=== PATIENT | female | born 1955 | race Caucasian/White ===

== ENCOUNTER 2021-09-21 09:07 | Outpatient (REF) | payer OTHER, SELFPAY ==
[2021-09-21 09:19] LABS: MANUAL DIFF FLAG NO
[2021-09-21 10:10] LABS: Basophils Percent Auto 0.3 % (0-2); Eosinophils Absolute Auto 0.2 X10*3/uL (0.0-0.4); Eosinophils Percent Auto 1.8 % (0-4); Hematocrit 41.5 % (37-47); Hemoglobin 13.3 g/dl (12.0-16.0); Imm Gran Abs Auto 0.06 X10*3/uL (0.00-0.03); Imm Gran Pct Auto 0.6 % (0.0-0.4); Lymphocytes Absolute Auto 2.4 X10*3/uL (1.2-4.9); Lymphocytes Percent Auto 25.2 % (20-40); Mean Corpuscular Hemoglobin 27.3 pg (27.0-33.0); Mean Corpuscular Volume 85.2 fL (80-98); Mean Platelet Volume 10.6 fL (9.4-12.3); Monocytes Absolute Auto 1.2 X10*3/uL (0.1-1.2); Monocytes Percent Auto 12.5 % (2-11); Neutrophils Absolute Auto 5.7 X10*3/uL (2.0-8.3); Neutrophils Percent Auto 59.6 % (45-73); Platelet Count 273 X10*3/uL (160-400); Red Blood Count 4.87 X10*6/uL (4.20-5.50); Red Cell Distribution Width 13.5 % (11.0-16.0); White Blood Count 9.5 X10*3/uL (4.8-10.8)
[2021-09-21 10:37] LABS: Alanine Aminotransferase 22 U/L (0-31); Albumin Level 4.1 g/dL (3.5-5.0); Alkaline Phosphatase 122 U/L (39-117); Anion Gap 12 (12-20); Aspartate Amino Transferase 22 U/L (5-31); Bilirubin Total 0.3 mg/dL (0.0-1.0); Blood Urea Nitrogen 11 mg/dL (9-16); Calcium 10.2 mg/dL (8.4-10.2); Carbon Dioxide 25 mmol/L (22-29); Chloride 106 mmol/L (96-108); Cholesterol 203 mg/dL; Estimated Glomerular Filt Rate > 60; Glucose Random 103 mg/dL (60-115); HDL Cholesterol 65 mg/dL; LDL Cholesterol Calculated 88 mg/dl; Potassium 4.3 mmol/L (3.3-5.1); Sodium 139 mmol/L (135-145); Total Protein 7.6 g/dL (6.5-8.0); Triglycerides 252 mg/dL
[2021-09-21 11:05] LABS: Free T4 (Free Thyroxine) 3.09 ng/dL (0.71-1.85); Thyroid Stimulating Hormone 0.08 uIU/mL (0.32-4.0)
[2021-09-21 11:08] LABS: Folate 18.1 ng/mL (> or = 4.0); Vitamin B12 414 pg/mL (200-900)
[2021-09-21 11:16] LABS: Appearance Urine CLOUDY; Color Urine YELLOW; Glucose Urine UA NEG (NEG); Leukocyte Esterase Urine 2+ (NEG); Nitrite Urine POS (NEG); PH 7.5 (5.0-8.0); Specific Gravity - Urine <= 1.005 (1.005-1.025); Urine Blood 2+ (NEG); Urine Ketones NEG (NEG); Urine Protein NEG (NEG-TRACE)
[2021-09-21 11:39] LABS: Vitamin D 25-OH Total 239.4 ng/mL (>30)
[2021-09-21 12:14] LABS: Bacteria Urine 4+ /LPF; Mucus Urine 1+ /LPF; Squamous Epithelial Cell Urine 1+ /LPF
== END 2021-09-21 09:08 | disposition home or self-care (01) ==
LOC: HO.LAB 09:07
PROVIDERS: PCP Internal Medicine; Visit Provider Internal Medicine
DX: E78.00 Pure hypercholesterolemia, unspecified (principal); E03.9 Hypothyroidism, unspecified; I10 Essential (primary) hypertension
CPT/HCPCS: 36415; 80053; 80061; 81001; 82306; 82607; 82746; 84439; 84443; 85025

== ENCOUNTER 2021-10-03 10:44 | Emergency (ER) | payer OTHER, SELFPAY ==
[2021-10-03 10:50] VITALS: BP 160/96; BP 173/89; PULSE 104; PULSE 112; RESP 22; O2SAT 96; BMI 26.5
[2021-10-03] MEDS: clonazePAM 1 MG TABLET PO (10:59)
--- NOTE | 2021-10-03 11:27 | ED_ITS ---
HPI - General Adult General Chief complaint: General Medical Stated complaint: TACHYCARDIA(140'S) PER VISITING RN,ANXIOUS PER PT Time Seen by Provider: 10/03/21 10:54 Source: patient and old records reviewed Limitations: no limitations History of Present Illness HPI narrative: Patient with a history of generalized anxiety disorder typically on Klonopin presents with tachycardia. She states she ran out of her Klonopin 5 days ago. Her visiting nurse came in today and found her heart rate to be 140 and sent to the emergency department via ambulance. She has been sinus tach per EMS. She is in sinus at a approximately 100 on arrival and shortly down to 87 beats per minute. She denies chest pain or palpitations. She states she ran out of her Klonopin 5 days ago. She typically gets a 90 day supply. She filled this last prescription on August 13. She states she has been anxious and has been taking more than prescribed. Instead of 0.5 mg b.i.d. she has been taking often times twice as much. She states this is never happened to her before. Her next refill is not for another 6 weeks. She is due to see her PCP in 3 weeks. She is due to see her therapist in 2 days. She is also due to see her psychiatrist but she does not know the date. She denies any other physical complaints. No fevers or chills. No nausea vomiting diarrhea constipation or other systemic symptoms. She states this is the exact way she feels in the past when she runs out of her Klonopin. Related Data Home Medications Medication Instructions Recorded Confirmed citalopram 20 mg tablet 20 mg PO DAILY 11/29/20 02/16/21 risperidone 1 mg tablet (Risperdal) 1 mg PO BID 02/16/21 02/16/21 Previous Rx's Medication Instructions Recorded varenicline 0.5 mg (11)-1 mg (42) See Rx Instructions PO PER PKG DIR 02/16/21 tablets in a dose pack (Chantix #53 ea Starting Month Box) varenicline 1 mg tablet (Chantix) 1 mg PO BID #56 tab 03/16/21 Medium-sized pull-ups #240 ea 08/21/21 atenolol 50 mg tablet 50 mg PO DAILY #90 tab 09/18/21 clonazepam 0.5 mg tablet 0.5 mg PO DAILY PRN #30 tab 09/18/21 clonidine HCl 0.1 mg tablet 0.1 mg PO BID 90 Days #180 tab 09/18/21 levothyroxine 112 mcg tablet 112 mcg PO QAM 30 Days #30 tab 09/29/21 clonazepam 0.5 mg tablet 0.5 mg PO BEDTIME #14 tab 10/03/21 Allergies Allergy/AdvReac Type Severity Reaction Status Date / Time No Known Allergies Allergy Mild UNKNWON Verified 12/19/20 14:13 Review of Systems Constitutional: Comments: No fevers Cardiovascular: Comments: No palpitations or chest pain Respiratory: Comments: No dyspnea or cough Gastrointestinal: Comments: No nausea vomiting or diarrhea Integumentary/Breasts: Comments: No rash Neurologic: Comments: No weakness numbness or paresthesias Psychiatric: Comments: Anxiety PMFSH Past Medical History Medical History (Updated 10/03/21 @ 11:44 by Joey Alvarado MD) Anxiety and depression Cholelithiases Humerus fracture Hypercholesteremia Hypertension Hypothyroid Tobacco abuse Urge incontinence Surgical History Adnexal mass History of tonsillectomy Hx of appendectomy Family History Family History Father No problems noted. Mother Hypertension Cancer Social History Social History (Updated 12/19/20 @ 14:14 by NATALIIA Cortes) Housing: Apartment Alcohol intake: never Patient Tobacco Use Status: Current everyday Tobacco user Tobacco use type: Cigarette Cigarette Packs Per Day: 1 Use of substances other than those prescribed or required for medical reasons: No Advance Directives: No Advance Directives Information Provided: No service: No Current occupational status: disabled Physical Exam Vital Signs: Vital Signs: Last Vital Signs Pulse 104 H 10/03/21 10:50 Resp 22 H 10/03/21 10:50 BP 173/89 H 10/03/21 10:50 Pulse Ox 96 10/03/21 10:50 Body Mass Index 26.5 Const: Other: Awake and alert. Appears anxious Resp: Other: Clear and equal bilaterally without wheezes rales or rhonchi Cardio: Other: Regular rate and rhythm without murmurs rubs or gallops GI: Other: Soft nontender nondistended. Normoactive bowel sounds Skin: Other: Warm pink and dry. 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 No evidence of other systemic issues Benzodiazepine use disorder Generalized anxiety disorder Treated with Klonopin 1 mg p.o.. I discussed with patient strategies to avoid overusing her benzodiazepines. She will follow-up with a therapist. In the meantime I will prescribe short course of Klonopin and have her call her PCP for further recommendations. Discharge Plan Discharge Clinical Impression: Moderate benzodiazepine use disorder, Anxiety Patient Disposition: Home, Self-Care Instructions: Benzodiazepine Abuse (ED), Anxiety (ED) Additional Instructions: Be sure to follow-up with her therapist and psychiatrist as scheduled. Call your primary care physician office today and let them know you came to the emergency department after running out of your Klonopin early. I am giving a prescription for 7 days. You will need to follow-up with your PCP for further prescriptions. Be sure to take the medication only as prescribed and never take extra medica tion as this is potentially life-threatening Prescriptions: New clonazepam 0.5 mg tablet 0.5 mg PO BEDTIME Qty: 14 RF: 0 No Action citalopram 20 mg tablet 20 mg PO DAILY RF: 0 varenicline [Chantix] 1 mg tablet 1 mg PO BID Qty: 56 RF: 0 (DME) Medium-sized pull-ups See Rx Instructions .Route .MEDSUPPLY Qty: 240 RF: 11 clonazepam 0.5 mg tablet 0.5 mg PO DAILY PRN (Reason: anxiety) Qty: 30 RF: 0 clonidine HCl 0.1 mg tablet 0.1 mg PO BID 90 Days Qty: 180 RF: 1 atenolol 50 mg tablet 50 mg PO DAILY Qty: 90 RF: 1 levothyroxine 112 mcg tablet 112 mcg PO QAM 30 Days Qty: 30 RF: 1 risperidone [Risperdal] 1 mg tablet 1 mg PO BID RF: 0 Chantix Starting Month Box 0.5 mg (11)- 1 mg (42) tablets,dose pack See Rx Instructions PO PER PKG DIR Qty: 53 RF: 0
[2021-10-03 11:35] VITALS: BP 154/80; PULSE 87; RESP 18; TEMP 37.7; O2SAT 97
== END 2021-10-03 12:36 | disposition home or self-care (01) ==
PROVIDERS: Emergency Provider Emergency Medicine; PCP Internal Medicine
DX: R00.0 Tachycardia, unspecified (principal); F41.1 Generalized anxiety disorder; F43.0 Acute stress reaction; F17.210 Nicotine dependence, cigarettes, uncomplicated; Z79.899 Other long term (current) drug therapy; Z71.6 Tobacco abuse counseling
CPT/HCPCS: 99283; 99284

== ENCOUNTER 2022-05-16 11:17 | Outpatient (REF) | payer OTHER, SELFPAY ==
[2022-05-16 13:44] LABS: MANUAL DIFF FLAG NO
[2022-05-16 13:48] LABS: Appearance Urine HAZY; Color Urine YELLOW; Glucose Urine UA NEG (NEG); Leukocyte Esterase Urine NEG (NEG); Nitrite Urine NEG (NEG); Urine Blood 2+ (NEG); Urine Ketones NEG (NEG); Urine Protein NEG (NEG-TRACE)
[2022-05-16 13:52] LABS: Basophils Percent Auto 0.4 % (0-2); Eosinophils Absolute Auto 0.2 X10*3/uL (0.0-0.4); Hematocrit 41.3 % (37.0-47.0); Hemoglobin 13.5 g/dl (12.0-16.0); Imm Gran Abs Auto 0.08 X10*3/uL (0.00-0.03); Imm Gran Pct Auto 0.9 % (0.0-0.4); Lymphocytes Absolute Auto 2.4 X10*3/uL (1.2-4.9); Lymphocytes Percent Auto 26.1 % (20-40); Mean Corpuscular HGB Conc 32.7 g/dl (31.0-35.0); Mean Corpuscular Hemoglobin 27.9 pg (27.0-33.0); Mean Corpuscular Volume 85.3 fL (80.0-98.0); Monocytes Absolute Auto 0.9 X10*3/uL (0.1-1.2); Monocytes Percent Auto 10.1 % (2-11); Neutrophils Absolute Auto 5.6 x10*3/uL (2.0-8.3); Neutrophils Percent Auto 60.5 % (45-73); Platelet Count 246 X10*3/uL (160-400); Red Blood Count 4.84 X10*6/uL (4.20-5.50); Red Cell Distribution Width 15.8 % (11.0-16.0); White Blood Count 9.3 X10*3/uL (4.8-10.8)
[2022-05-16 14:02] LABS: Alanine Aminotransferase 21 U/L (0-31); Alkaline Phosphatase 119 U/L (39-117); Anion Gap 14 (12-20); Aspartate Amino Transferase 28 U/L (5-31); Bilirubin Total 0.3 mg/dL (0.0-1.0); Blood Urea Nitrogen 18 mg/dL (9-16); Carbon Dioxide 21 mmol/L (22-29); Chloride 105 mmol/L (96-108); Cholesterol 343 mg/dL; Estimated Glomerular Filt Rate > 60; Glucose Random 91 mg/dL (60-115); HDL Cholesterol 75 mg/dL; LDL Cholesterol Calculated 231 mg/dl; Potassium 4.3 mmol/L (3.3-5.1); Sodium 136 mmol/L (135-145); Total Protein 7.7 g/dL (6.5-8.0); Triglycerides 186 mg/dL
[2022-05-16 14:03] LABS: Squamous Epithelial Cell Urine 1+ /LPF
[2022-05-16 14:04] LABS: Bacteria Urine 1+ /LPF; RBC Urine 0-2 /HPF (0); WBC Urine 0 /HPF (0-4)
[2022-05-16 14:25] LABS: Free T4 (Free Thyroxine) 0.94 ng/dL (0.71-1.85); Thyroid Stimulating Hormone 5.14 uIU/mL (0.32-4.0)
[2022-05-16 14:38] LABS: Estimated Average Glucose 114 mg/dL; Hemoglobin A1c % 5.6 %
== END 2022-05-16 11:18 | disposition home or self-care (01) ==
LOC: HO.10HDL 11:17
PROVIDERS: Visit Provider Internal Medicine
DX: E03.9 Hypothyroidism, unspecified (principal); E78.00 Pure hypercholesterolemia, unspecified
CPT/HCPCS: 36415; 80053; 80061; 81001; 83036; 84439; 84443; 85025

== ENCOUNTER 2022-09-10 09:25 | Outpatient (REF) | payer OTHER, SELFPAY | END 2022-09-10 09:26 | disposition home or self-care (01) | LOC: HO.LAB 09:25 | PROVIDERS: PCP Internal Medicine; Visit Provider Internal Medicine | DX: E03.9 Hypothyroidism, unspecified (principal) | CPT/HCPCS: 36415; 84439; 84443 ==

== ENCOUNTER 2022-09-11 11:49 | Outpatient (REF) | payer OTHER, SELFPAY ==
[2022-09-11 12:17] LABS: Appearance Urine Clear; Color Urine Yellow; Glucose Urine UA Negative (Negative); Leukocyte Esterase Urine Trace (Negative); Nitrite Urine Negative (Negative); UMIC TRIGGER UACC YES; Urine Blood Trace (Negative); Urine Ketones Negative (Negative); Urine Protein Negative (Neg-Trace)
[2022-09-11 12:22] LABS: Bacteria Urine 1+ (None Seen); Hyaline Casts Urine 0-2 /LPF (0-2); WBC Urine 0-5 /HPF (0-5)
== END 2022-09-11 11:50 | disposition home or self-care (01) ==
LOC: HO.LNP 11:49
PROVIDERS: Visit Provider Internal Medicine
DX: R82.90 Unspecified abnormal findings in urine (principal)
CPT/HCPCS: 81001; 81003

== ENCOUNTER 2023-07-08 08:30 | Outpatient (REF) | payer OTHER, SELFPAY ==
[2023-07-08 10:44] LABS: Alanine Aminotransferase 15 U/L (0-31); Albumin Level 3.9 g/dL (3.5-5.0); Alkaline Phosphatase 110 U/L (39-117); Anion Gap 17 (12-20); Aspartate Amino Transferase 14 U/L (5-31); Bilirubin Total 0.4 mg/dL (0.0-1.0); Blood Urea Nitrogen 11 mg/dL (9-16); Calcium 9.6 mg/dL (8.4-10.2); Carbon Dioxide 20 mmol/L (22-29); Chloride 105 mmol/L (96-108); Cholesterol 203 mg/dL; Estimated Glomerular Filt Rate > 60; Glucose Random 153 mg/dL (60-115); HDL Cholesterol 47 mg/dL; LDL Cholesterol Calculated 122 mg/dl; Potassium 3.8 mmol/L (3.3-5.1); Sodium 138 mmol/L (135-145); Total Protein 8.4 g/dL (6.5-8.0); Triglycerides 171 mg/dL
[2023-07-08 11:01] LABS: Free T4 (Free Thyroxine) 1.12 ng/dL (0.71-1.85); Vitamin D 25-OH Total 40.4 ng/mL (>30)
[2023-07-08 11:11] LABS: Vitamin B12 401 pg/mL (200-900)
== END 2023-07-08 08:31 | disposition home or self-care (01) ==
LOC: HO.LAB 08:30
PROVIDERS: PCP Internal Medicine; Visit Provider Internal Medicine
DX: E03.9 Hypothyroidism, unspecified (principal); E78.00 Pure hypercholesterolemia, unspecified; M81.0 Age-related osteoporosis without current pathological fracture; E55.9 Vitamin D deficiency, unspecified
CPT/HCPCS: 36415; 80053; 80061; 82306; 82607; 82746; 84439; 84443

== ENCOUNTER 2023-07-09 14:38 | Outpatient (REF) | payer OTHER, SELFPAY ==
[2023-07-09 16:05] LABS: Appearance Urine Cloudy; Color Urine Dark Yellow; Glucose Urine UA Negative (Negative); Leukocyte Esterase Urine Moderate (2+) (Negative); Nitrite Urine Negative (Negative); PH 6.5 (5.0-9.0); UMIC TRIGGER UACC YES; Urine Blood Negative (Negative); Urine Ketones Trace mg/dL (Negative); Urine Protein 30 (1+) mg/dL (Neg-Trace)
[2023-07-09 16:27] LABS: Free T4 (Free Thyroxine) 1.18 ng/dL (0.71-1.85); Thyroid Stimulating Hormone 0.11 uIU/mL (0.32-4.0)
[2023-07-09 17:05] LABS: Bacteria Urine 4+ (None Seen); UACC Culture Trigger YES
[2023-07-11 17:39] LABS: TS Negative Control Passed; TS Panel A 1; TS Panel B 1; TS Positive Control Passed; TSpotTB Negative (Negative)
== END 2023-07-09 14:39 | disposition home or self-care (01) ==
LOC: HO.LAB 14:38
PROVIDERS: PCP Internal Medicine; Visit Provider Internal Medicine
DX: Z00.00 Encounter for general adult medical examination without abnormal findings (principal); Z11.1 Encounter for screening for respiratory tuberculosis; E03.9 Hypothyroidism, unspecified; R82.90 Unspecified abnormal findings in urine
CPT/HCPCS: 36415; 81001; 81003; 84439; 84443; 86481; 87086

== ENCOUNTER 2023-08-02 10:11 | Outpatient (AMB) | payer OTHER, SELFPAY ==
[2023-08-02 10:35] VITALS: BP 100/78; PULSE 75; O2SAT 98; BMI 33.7
--- NOTE | 2023-08-02 10:35 | AM.OFFVISMDC ---
Intake Vital Signs 08/02/23 10:35 Height 5 ft 3 in Weight 190 lb 8 oz BMI 33.7 BP 100/78 Blood Pressure Location Lt brachial Position Sitting Pulse 75 Pulse Source Pulse Oximeter Pulse Oximetry (%) 98 Oxygen Delivery Method Room Air Intake Visit Reasons: AWV Intake Note: Patient is here for an Annual Wellness Visit. Assistant Fitness Manager Required: No Accompanied by: Daughter Allergies No Known Allergies Allergy (Mild, Verified 08/02/23 10:40) UNKNWON HPI HPI Comments History of Present Illness Details 67-year-old female past medical history significant for hypertension, hypothyroid, hypercholesteremia, depression and urge incontinence. Patient Dr. Asencio presents today for annual wellness visit. Patient currently following with weekly therapist via phone and follows with Dr. Molina Meade psychiatrist. Patient requesting referral to urology for urge incontinence, referral entered. Colonoscopy: Patient reports last colonoscopy over 10 years ago. Referral entered Mammogram: Patient refuse recommended mammogram screening. DEXA: Patient agreeable to have bone density screening complete, order entered Eye exam: Last year. [place] of care was reviewed with patient patient was provided with a written screening schedule. Healthcare proxy MOLST form and reviewed with patient and daughter, patient advised to return completed forms to office to be scanned to chart. [facility] Medical History (Updated 03/04/23 @ 14:48 by Elissa Asnecio MD) Anxiety and depression Cholelithiases Humerus fracture Hypercholesteremia Hypertension Hypothyroid Tobacco abuse Urge incontinence Surgical History Adnexal mass History of tonsillectomy Hx of appendectomy Family History Father No problems noted. Mother Hypertension Cancer Social History Housing: Apartment Alcohol intake: never Patient Tobacco Use Status: Current everyday Tobacco user Tobacco use type: Cigarette Cigarette Packs Per Day: 0.5 e-Cigarette/Vaping Use: Never Used Second Hand Smoke Exposure: Yes service: No Current occupational status: disabled Cognitive needs: Yes Hearing needs: No Vision needs: Yes Questionnaire Medicare Wellness Checkup What [age] What gender do you identify with?: female During the past 4 weeks, how much have you been bothered by emotional problems such as feeling anxious, depressed, irritable, sad or downhearted, and blue?: quite a bit During the past 4 weeks, has your physical & emotional health limited your social activities with family, friends, neighbors, or groups?: moderately During the past 4 weeks, how much bodily pain have you generally had?: no pain During the past 4 weeks, was someone available to help you if you needed & wanted help?: yes, as much as I wanted During the past 4 weeks, what was the hardest physical activity you could do for at least 2 minutes?: light Can you get to places out of walking distance without help? (For eg., can you travel alone on buses, taxis or drive your car?): No Can you go shopping for groceries or clothes without someone's help?: No Can you prepare your own meals?: No Can you do your housework without help?: No Because of any health problems, do you need the help of another person with your personal care needs such as eating, bathing, dressing or getting around the house?: Yes Can you handle your own money without help?: No During the past 4 weeks, how would you rate your health in general?: fair During the past 4 weeks how have things been going for you?: good & bad parts about equal Are you having difficulties driving your car?: not applicable, I don't use a car Do you always fasten your seat belt when you are in a car?: yes, usually During past 4 weeks, have you been bothered by the following: never: Sexual problems?, seldom: Falling or dizzy when standing up and Trouble eating well? and sometimes: Teeth or denture problems?, Problems using the telephone? and Tiredness or fatigue? Have you fallen 2 or more times in the past year?: Yes Are you afraid of falling?: Yes Are you a smoker?: yes, and I might quit During the past 4 weeks, how many drinks of wine, beer, or other alcoholic beverages did you have?: no alcohol at all Do you exercise for about 20 minutes 3 or more times a week?: yes, most of the time Have you been given information to help with the following?: no: Hazards in your house that might hurt you? How often do you have trouble taking medicines the way you have been told to take them?: I seldom take medications as prescribed How confident are you that you can control & manage most of your health problems?: not very confident What is your race?: or origin or descent Mini Mental State Exam (MMSE) Orientation What is the (year) (season) (date) (day) (month)?: year, season, date, day and month Score Score: 5 Activity of Daily Living Bathing - sponge bath, tub bath or shower: receives help in bathing more than one body part (or not bathed) Dressing - getting clothes from closets & drawers, including inner/outer garments & fasteners.: receives help getting clothes or getting dressed, or stays undressed Toileting - going to the 'toilet room' for urine/bowel elimination & cleaning self/arranging clothes: receives help going to toilet room, cleaning self or arranging clothes Transfer: moves in & out of bed and chair without help (may use support object) Continence: has occasional 'accidents' Feeding: feeds self without help Total Score: 2 Information obtained from: patient Using telephone: independent Traveling: dependent Shopping: dependent Preparing meals: dependent Housework: dependent Taking medicine: dependent Managing money: dependent PHQ-9 Over the last 2 weeks, how often have you been bothered by any of the following problems? 1. Little interest or pleasure in doing things: nearly every day 2. Feeling down, depressed, or hopeless: nearly every day 3. Trouble falling or staying asleep, or sleeping too much: more than half the days 4. Feeling tired or having little energy: more than half the days 5. Poor appetite or overeating: more than half the days 6. Feeling bad about yourself - or that you are a failure or have let yourself or your family down: nearly every day 7. Trouble concentrating on things, such as reading the newspaper or watching television: nearly every day 8. Moving or speaking so slowly that other people could have noticed. Or the opposite - being so fidgety or restless that you have been moving around a lot more than usual: more than half the days 9. Thoughts that you would be better off or of hurting yourself in some way: not at all Total score: 20 Source: Developed by Drs. Geronimo Alvarez, Dalia Shields, Brandon Cleveland and colleagues, with an educational miriam from [employer]. Physical Exam Vital Signs: Last Vital Signs Pulse 75 08/02/23 10:35 BP 100/78 08/02/23 10:35 Pulse Ox 98 08/02/23 10:35 Oxygen Delivery Method Room Air 08/02/23 10:35 BMI result Body Mass Index 33.7 Const General: cooperative and no acute distress Orientation/consciousness: patient oriented x3 HEENT Ears: other (whisper test: pass) Neuro General: patient oriented x3 Gait exam (Neuro): Normal gait present Coordination: No tandem gait normal (unable to complete tandem gait. ) and Romberg test negative Assessment & Plan Assessment & Plan (1) Urge incontinence: Code(s): N39.41 - Urge incontinence Plan: Referral entered to urology (2) Medicare annual wellness visit, initial: Code(s): Z00.00 - Encounter for general adult medical examination without abnormal findings Plan: Follow up in 1 year Plan Follow up 1 year. Orders: Orders XR DEXA axial skeleton Today M81.0 - Age-related osteoporosis without current pathological fracture Referrals Gastroenterology Referral Z12.11 - Encounter for screening for malignant neoplasm of colon Urology Referral N39.41 - Urge incontinence Quality Reporting (2019) Depression/Bipolar (159/160/161/177) PHQ-9: Total score: 20 Coding Level of Care Code Medicare First (G0438) Diagnoses Urge incontinence N39.41 Medicare annual wellness visit, initial Z00.00 CPT Codes Advance Care Planning - Time spent: 1-15 minutes, not on file ([id number]) Advance Care Planning Date of discussion: 08/02/23 Forms completed: Health Care Proxy and MOLST Time spent: 1-15 minutes, not on file Actual minutes spent: 2
== END 2023-08-02 11:11 | disposition home or self-care (01) ==
PROVIDERS: PCP Internal Medicine; Visit Provider Nurse Practitioner Family
DX: Z00.00 Encounter for general adult medical examination without abnormal findings (principal); N39.41 Urge incontinence
CPT/HCPCS: 1124F; G0438

== ENCOUNTER 2023-09-17 11:15 | Outpatient (REF) | payer OTHER, SELFPAY | END 2023-09-17 11:16 | disposition home or self-care (01) | LOC: HO.LNP 11:15 | PROVIDERS: PCP Internal Medicine; Visit Provider Nurse Practitioner Family | DX: N39.46 Mixed incontinence (principal); R31.29 Other microscopic hematuria; R15.9 Full incontinence of feces; R31.0 Gross hematuria; F17.210 Nicotine dependence, cigarettes, uncomplicated; Z79.899 Other long term (current) drug therapy | CPT/HCPCS: 51798; 81003 ==

== ENCOUNTER 2023-09-17 11:15 | Outpatient (AMB) | payer OTHER, SELFPAY ==
--- NOTE | 2023-09-17 11:45 | A.OFFVIS_ITS ---
Intake Intake Visit Reasons: Urge Incontinence Intake Note: New Patient presents for initial visit for urinary and fecal incontinence Urology Medications: none Blood Thinner: none PVR: 63ml's Mysql Database Administrator Required: No Accompanied by: Daughter Allergies No Known Allergies Allergy (Mild, Verified 09/17/23 19:11) UNKNWON Medication List - Last Reconciled 09/17/23 by MIHIR Vernon [adult pull-ups As directed] atenolol 50 mg PO DAILY [BED LINER As directed] citalopram 20 mg PO DAILY clonazepam 0.5 mg PO BEDTIME clonidine HCl 0.1 mg PO BID 90 days commode (bedside commode) As directed disposable gloves As directed [GLOVES MEDIUM As directed] [incontinence PADS As directed] [incontinence wipes As directed] levothyroxine 112 mcg PO QAM 30 days miscellaneous medical supply 1 ea miscellaneous DAILY nicotine 1 patch transdermal DAILY nicotine 1 patch transdermal DAILY [Personal emergency response system As directed] [repair front wheels on rollator As directed] risperidone (Risperdal) 1 mg PO BID tolterodine ER 2 mg PO DAILY 30 days walker (Ultra-Light Rollator misc) As directed HPI HPI Comments History of Present Illness Details Azul is a very pleasant 67-year-old female patient of was accompanied by her daughters at today's visit. She has a past medical history of hypercholesteremia, hypothyroidism, anxiety, depression, and hypertension. She presents to the office today as a new patient for ongoing lower urinary tract symptoms. In discussion with the patient today she reports to be doing and feeling well. She reports noting urinary frequency and urgency with episodes of incontinence if not near a bathroom. She reports urinary symptoms to have been present for at least 2 years now. She otherwise denies hematuria, dysuria, foul smelling urine, changes to urinary stream, flank pain, fever, and or chills. In office urinalysis results reviewed with the patient today. Microscopic hematuria noted. When asked patient does report a longstanding history of nicotine dependence since the age of approximately 23 years old. She reports to be smoking 1-1 and half packs of cigarettes per day. She does report having quit for approximately 6 years in her lifetime. She otherwise denies any known workplace chemical exposure. Discussed at length potential causes for lower urinary tract symptoms as well as microscopic hematuria. Discussed surveillance monitoring of microscopic hematuria verses further workup with CT urogram, urine cytology, and in office cystoscopy. PVR 63 mLs. [facility] Medical History Humerus fracture Cholelithiases Urge incontinence Hypercholesteremia Hypothyroid Tobacco abuse Anxiety and depression Hypertension Surgical History Adnexal mass History of tonsillectomy Hx of appendectomy Family History Father No problems noted. Mother Hypertension Cancer Social History Housing: Apartment Alcohol intake: never Patient Tobacco Use Status: Current everyday Tobacco user Tobacco use type: Cigarette Cigarette Packs Per Day: 0.5 e-Cigarette/Vaping Use: Never Used Second Hand Smoke Exposure: Yes service: No Current occupational status: disabled Cognitive needs: Yes Hearing needs: No Vision needs: Yes Review of Systems Const Reports as per HPI Eyes Reports no additional complaints ENT Reports no additional complaints Card Reports as per HPI Resp Reports no additional complaints GI Reports no additional complaints Reports as per HPI Musc Details: Patient with previous right-sided humerus fracture Psych Reports as per HPI Endo Reports no additional complaints Physical Exam Const General: cooperative, comfortable, no acute distress, well developed, alert and awake Orientation/consciousness: patient oriented x3 Limitations: ambulation with cane HEENT Head: Yes normal to inspection, Yes normocephalic and Yes atraumatic Ears: hearing grossly normal bilaterally Eyes General: appearance normal, both eyes and all related structures Neck Neck: Yes normal visual inspection and Yes trachea midline Chest Chest palpation & inspection: normal inspection of the chest Resp Effort & Inspection: normal respiratory effort and able to speak in complete sentences Cardio Rate: regular rate GI Inspection: Yes normal to inspection General: Yes no CVA tenderness Back/Spine/Pelvis Back: no CVA tenderness Skin General skin exam: no rashes or lesions noted Neuro General: patient oriented x3 Extrem General: Yes normal to inspection Psych Appearance: grossly normal and well kempt Mental Status: mental status grossly normal Speech and movement: Normal speech and movement present and Clear speech present Affect: normal affect Attitude: cooperative Thought process: Normal thought process present Thought content: Normal thought content present Insight: Fair insight present (Psych) Judgement: Fair judgement present (Psych) Office Procedures Post Void Residual Post Residual Void Post Void Residual (PVR): 63 [id number] Void Residual by ultrasound Results AMB Urinalysis, Automated UA Leukoctes 0 [place]/uL Last Edit by Jeffery Woodall on 09/17/23 12:06 UA Nitrite Negative Last Edit by [employer] on 09/17/23 12:06 UA Urobilinogen 0.2 mg/dL Last Edit by [employer] on 09/17/23 12:06 UA Protein 15 mg/dL Last Edit by [employer] on 09/17/23 12:06 UA pH 7.0 Last Edit by [employer] on 09/17/23 12:06 UA Blood 10 Perry/uL Last Edit by [employer] on 09/17/23 12:06 UA Specific [place] 1.010 Last Edit by [employer] on 09/17/23 12:06 UA Ketone Negative Last Edit by [employer] on 09/17/23 12:06 UA Bilirubin 0 mg/dL Last Edit by [employer] on 09/17/23 12:06 UA Glucose 0 mg/dL Last Edit by [employer] on 09/17/23 12:06 Results Reviewed Results Reviewed: Laboratory Last Values Urine pH (Auto) 7.0 09/17/23 12:02 Specific [place] (Auto) 1.010 09/17/23 12:02 Urine Protein (Auto) 15 mg/dL 09/17/23 12:02 Glucose (UA)(Auto) 0 mg/dL 09/17/23 12:02 Urine Ketones (Auto) Negative 09/17/23 12:02 Urine Blood (Auto) 10 Perry/uL 09/17/23 12:02 Urine Nitrite (Auto) Negative 09/17/23 12:02 Urine Bilirubin (Auto) 0 mg/dL 09/17/23 12:02 Urine Urobilinogen (Auto) 0.2 mg/dL 09/17/23 12:02 Leukocyte Esterase (Auto) 0 [place]/uL 09/17/23 12:02 Assessment & Plan Assessment & Plan (1) Nicotine dependence: Code(s): F17.200 - Nicotine dependence, unspecified, uncomplicated (2) Microhematuria: Code(s): R31.29 - Other microscopic hematuria (3) Mixed stress and urge urinary incontinence: Code(s): N39.46 - Mixed incontinence Plan In office urinalysis results reviewed with the patient today; as noted above; will send for urine cytology. Discussed at length potential causes for microscopic hematuria. Will obtain CT urogram for further assessment evaluation. BUN and creatinine ordered for imaging. Discussed and stressed the importance of limiting/quitting cigarette smoking for overall health and well-being. Start tolterodine 2 mg as discussed and prescribed. Discussed bladder triggers/irritants. Discussed, stressed, and encouraged importance of drinking plenty of water daily. Follow-up in office cystoscopy with imaging and labs to be completed prior; or sooner with any issues, concerns, and or questions. Orders: Orders CT urogram Today R31.0 - Gross hematuria Creatinine Today F17.200 - Nicotine dependence, unspecified, uncomplicated, R31.29 - Other microscopic hematuria AMB Urinalysis Automated Today Z13.9 - Encounter for screening, unspecified AMB Post Void Residual by ultrasound Today N39.41 - Urge incontinence Blood Urea Nitrogen Today F17.200 - Nicotine dependence, unspecified, uncomplicated, R31.29 - Other microscopic hematuria Urine Cytology Today R31.29 - Other microscopic hematuria Medications: New tolterodine ER 2 mg PO DAILY 30 days 30 caps 1RF R39.15 - Urgency of urination Patient Instructions: The patient had an opportunity to ask questions regarding the treatment plan. All questions were answered. Physical exam, labs, and imaging were discussed and reviewed in detail. As well as risks, benefits, and discussion of treatment choices. No major barriers to understanding were identified. The patient expressed understanding and agreement with the above treatment plan. The patient was made aware they should contact our office by phone for worsening of their current condition, the appearance of new symptoms, or with any questions or concerns. Compliance is encouraged with any medications and follow up testing that is ordered. It is a privilege to be allowed the opportunity to participate in? your urological care.? Again, if you have any questions or concerns If you have any questions or concerns please do not hesitate to contact me. The office is [phone]. This note is constructed using voice recognition software. While every effort has been made to ensure accuracy hr advisor errors may have been included. Yours sincerely, VARGAS Vernon-BC Coding Level of Care Code New Pt Level 4 (01511) Diagnoses Nicotine dependence F17.200 Microhematuria R31.29 Mixed stress and urge urinary incontinence N39.46 CPT Codes Post Residual Void - PVR CPT Code: 11257-Pukp Void Residual by ultrasound ([id number])
== END 2023-09-17 12:27 | disposition home or self-care (01) ==
PROVIDERS: PCP Internal Medicine; Visit Provider Nurse Practitioner Family
DX: F17.200 Nicotine dependence, unspecified, uncomplicated (principal); R31.29 Other microscopic hematuria; N39.46 Mixed incontinence; Z13.9 Encounter for screening, unspecified
CPT/HCPCS: 99204

== ENCOUNTER 2023-09-17 12:33 | Outpatient (REF) | payer OTHER, SELFPAY ==
[2023-09-17 13:38] LABS: Urine Cytology See Pathology rpt
[2023-09-17 14:50] LABS: Blood Urea Nitrogen 11 mg/dL (9-16); Estimated Glomerular Filt Rate > 60
== END 2023-09-17 12:34 | disposition home or self-care (01) ==
LOC: HO.10HDL 12:33
PROVIDERS: Visit Provider Nurse Practitioner Family
DX: F17.200 Nicotine dependence, unspecified, uncomplicated (principal); R31.29 Other microscopic hematuria; R31.0 Gross hematuria
CPT/HCPCS: 36415; 82565; 84520; 88112

== ENCOUNTER 2023-10-08 10:02 | Outpatient (REF) | payer OTHER, SELFPAY ==
[2023-10-08 12:23] LABS: Free T4 (Free Thyroxine) 0.89 ng/dL (0.71-1.85)
== END 2023-10-08 10:03 | disposition home or self-care (01) ==
LOC: HO.LAB 10:02
PROVIDERS: PCP Internal Medicine; Visit Provider Internal Medicine
DX: E03.9 Hypothyroidism, unspecified (principal)
CPT/HCPCS: 36415; 84439; 84443

== ENCOUNTER 2023-10-10 09:46 | Outpatient (AMB) | payer OTHER, SELFPAY ==
[2023-10-10 09:56] VITALS: BP 126/70; PULSE 73; BMI 34.5
--- NOTE | 2023-10-10 09:56 | MHC.OFFVIS ---
Intake Vital Signs 10/10/23 09:56 Height 5 ft 3 in Weight 194 lb 14.218 oz BMI 34.5 BP 126/70 Blood Pressure Location Lt brachial Position Sitting Pulse 73 Intake Visit Reasons: Colonoscopy Screening Intake Note: Patient presents to in office visit today as a new patient for colonoscopy screening. CC: Patient reports occasional choking whit foods. Denies other GI symptoms today and denies having colonoscopy done in the past. Allergies No Known Allergies Allergy (Mild, Verified 10/10/23 10:01) UNKNWON HPI Colonoscopy Screening HPI Details 67-year-old female here for preprocedural meeting to discuss a screening colonoscopy. She is referred by Priscilla Eaton of [facility] primary care. PMX Hypothyroid Hypertension High cholesterol Smoker Urge urinary incontinence History of cholelithiasis Depression/anxiety Adnexal mass-right * SURGICAL HISTORY Tonsillectomy Appendectomy * ALLERGIES: NKDA * [employer] LABS: Laboratory Tests 07/08/23 09/17/23 10/08/23 08:48 12:40 10:31 Estimated GFR > 60 Total Bilirubin 0.4 AST 14 ALT 15 Alkaline Phosphata se 110 TSH 3.00 Free T4 0.89 2018 emergeny procedure note - Srinivas PREOPERATIVE DIAGNOSIS: The patient is a 63-year-old female with no previous history of this patient. I was called from the emergency room. She had appeared there with complaints of inability to swallow. She had been eating a roasted pork chop, no bone and after the 3rd bite, she was, actually, unable to even swallow her saliva. She was having a lot of irritation in the back of the throat and coughing. POSTOPERATIVE DIAGNOSIS: Food bolus removal, question of Upper Esophageal Stricture with dilation from the scope versus trauma. PROCEDURE PERFORMED: Urgent Esophagogastroduodenoscopy with food bolus removal. ESTIMATED BLOOD LOSS: Minimal. COMPLICATIONS: None. ANESTHESIA: MAC. ANESTHESIOLOGIST: Dr. Bazan ASSISTANTS: None. SPECIMENS: No specimens removed. FINDINGS: Video endoscope was introduced without difficulty. It was navigated into the posterior pharynx. Once passed through this area just below the EUS, I encountered the meat food bolus. With positioning the scope, I gently pushed on the bolus and it readily passed through the GE junction into the stomach. In the stomach, there were few other pieces of meat and some oily fluid. The stomach itself appeared normal. Duodenal bulb and duodenum appeared normal. Scope was withdrawn to the GE junction. There was slight inflammatory area in that region. Residual food flicking in the esophagus was flushed into the stomach. Liquid from the stomach was suctioned out and scope was withdrawn up through the esophagus. At the area of the food impaction, there was some mucosal disruption as if we had broken up an upper esophageal ring. The scope was removed. The patient tolerated the procedure well. PLAN: 1. Postprocedure, she was given IV Protonix 1 dose. 2. She is given a prescription for omeprazole 40 mg to take 1 at bedtime for the next 4 weeks. She has been instructed to call for a followup appointment with me due to the concern that there may have actually been a ring there, which may or may not need followup. TODAY'S VISIT This will be her first colonoscopy No bowel problems, but she is having orpharyngeal dysphagia choking mostly on meats, has a hx of food impaction with emergency EGD by Dr. Espino in 2019. Was supposed to be on omeprazole for this, will restart. She denies any cardiac or respiratory problems. There are no prior problems with anesthesia or sedation. No ID problems. No known FHX of CRC or polyps. [facility] Medical History Dysphagia, oropharyngeal Humerus fracture Cholelithiases Urge incontinence Hypercholesteremia Hypothyroid Tobacco abuse Anxiety and depression Hypertension Surgical History Adnexal mass History of tonsillectomy Hx of appendectomy Family History Father No problems noted. Mother Hypertension Cancer Social History Housing: Apartment Alcohol intake: never Patient Tobacco Use Status: Current everyday Tobacco user Tobacco use type: Cigarette Cigarette Packs Per Day: 0.5 e-Cigarette/Vaping Use: Never Used Second Hand Smoke Exposure: Yes service: No Current occupational status: disabled Cognitive needs: Yes Hearing needs: No Vision needs: Yes Review of Systems Const Denies fatigue, Denies fever(s), Denies night sweats, Denies poor appetite and Denies weight loss ENT Reports Normal hearing present, Reports dysphagia, Denies odynophagia, Denies throat swelling and Denies tongue swelling Card Reports no additional complaints Resp Reports no additional complaints GI Denies abdominal pain, Denies melena, Denies bloating, Denies hematochezia, Denies constipation, Denies GI cramping, Reports dysphagia, Denies excessive flatus, Denies early satiety, Reports heartburn, Denies diarrhea, Denies nausea, Denies odynophagia, Denies vomiting and Denies hematemesis Skin/Breast Denies pruritus, Denies lesions, Denies rash and Denies jaundice Neuro Reports Normal hearing present and Denies Abnormal speech present Endo Denies fatigue Aller/Immun Denies throat swelling and Denies tongue swelling Physical Exam Vital Signs: Last Vital Signs Pulse 73 10/10/23 09:56 BP 126/70 10/10/23 09:56 BMI result Body Mass Index 34.5 Const General: cooperative, no acute distress, well developed and well groomed Nutritional Appearance: well nourished and obese Orientation/consciousness: oriented to person, oriented to place and oriented to time Limitations: No language barrier HEENT Head: Yes normocephalic and Yes atraumatic Eyes General: appearance normal, both eyes and all related structures Pupils: Equal, round and reactive pupils present Neck Neck: Yes normal visual inspection and Yes no lymphadenopathy Thyroid: Thyroid normal Resp Effort & Inspection: normal respiratory effort and able to speak in complete sentences Auscultation: clear to auscultation bilaterally Cardio Rate: regular rate Rhythm: regular rhythm Heart sounds: Normal, physiologic split S2 sound present Peripheral pulses: radial pulses present and posterior tibial pulses present GI Inspection: No distended, Yes Abdominal panniculus present, Yes obesity and Yes visible herniation (umbilical) Palpation (GI): Soft to palpation, nontender, no guarding, not rigid and No hepatosplenomegaly present Percussion: Yes normal to percussion Auscultation: normal bowel sounds Rectal Exam - Female: deferred Abdomen image: 1. surgical scar Skin General skin exam: no rashes or lesions noted, turgor normal, skin not dry, no jaundice, No spider nevi and no striae Rashes: no rashes Nails: normal Neuro General: oriented to person, oriented to place and oriented to time Cranial nerves: Yes Equal, round and reactive pupils present and Yes Normal hearing present Speech: No Abnormal speech present Extrem General: Yes normal to inspection, No clubbing, No cyanosis and No edema Psych Appearance: grossly normal and well kempt Mental Status: other Speech and movement: Slowed speech present (Psych) Affect: normal affect Attitude: cooperative Thought process: not confabulating and Impoverished thought process present Thought content: Normal thought content present Insight: Limited insight present (Psych) Judgement: Limited judgement present (Psych) Assessment & Plan Assessment & Plan (1) Pre-op examination: Code(s): Z01.818 - Encounter for other preprocedural examination Plan: This will be her first colonoscopy No bowel problems, but she is having orpharyngeal dysphagia choking mostly on meats, has a hx of food impaction with emergency EGD by Dr. Espino in 2019. Was supposed to be on omeprazole for this, will restart. She denies any cardiac or respiratory problems. There are no prior problems with anesthesia or sedation. No ID problems. No known FHX of CRC or polyps. (2) Dysphagia, oropharyngeal: Code(s): R13.12 - Dysphagia, oropharyngeal phase (3) History of esophageal dilatation: Code(s): Z98.890 - Other specified postprocedural states (4) GERD (gastroesophageal reflux disease): Code(s): K21.9 - Gastro-esophageal reflux disease without esophagitis Orders: Orders FL barium swallow modified 10/10/23 R13.12 - Dysphagia, oropharyngeal phase EGD/[place] Combo - GI Use Only 10/10/23 R13.12 - Dysphagia, oropharyngeal phase Medications: New peg 3350-electrolytes 236-22.74-6.74 -5.86 gram (Golytely) until fecal effluent is clear; do not exceed a total volume of 2,000 mL 240 mL PO Q10M 4,000 mL 0RF 1 day Z12.11 - Encounter for screening for malignant neoplasm of colon omeprazole 40 mg PO DAILY 30 caps 6RF 30 days Z98.890 - Other specified postprocedural states, R13.12 - Dysphagia, oropharyngeal phase, K21.9 - Gastro-esophageal reflux disease without esophagitis Coding Level of Care Code New Pt Level 3 (78483) Diagnoses Pre-op examination Z01.818 Dysphagia, oropharyngeal R13.12 History of esophageal dilatation Z98.890 GERD (gastroesophageal reflux disease) K21.9
== END 2023-10-10 11:02 | disposition home or self-care (01) ==
PROVIDERS: PCP Nurse Practitioner Family; Visit Provider Nurse Practitioner
DX: R13.12 Dysphagia, oropharyngeal phase (principal); K21.9 Gastro-esophageal reflux disease without esophagitis; Z01.818 Encounter for other preprocedural examination; Z12.11 Encounter for screening for malignant neoplasm of colon
CPT/HCPCS: 99203

== ENCOUNTER → 2023-10-10 09:46 | Outpatient (BNVA) | payer OTHER, SELFPAY | PROVIDERS: PCP Nurse Practitioner Family; Visit Provider Nurse Practitioner | DX: Z01.818 Encounter for other preprocedural examination (principal); K21.9 Gastro-esophageal reflux disease without esophagitis; R13.12 Dysphagia, oropharyngeal phase; Z98.890 Other specified postprocedural states | CPT/HCPCS: 99202 ==

== ENCOUNTER 2023-10-29 09:50 | Outpatient (REF) | payer OTHER, SELFPAY ==
--- NOTE | ~2023-10-29 | CT_ITS ---
EXAMINATION: CT ABDOMEN AND PELVIS WITHOUT AND WITH CONTRAST CLINICAL INFORMATION: Gross hematuria. COMPARISON: Abdominal ultrasound dated 05/07/2007. TECHNIQUE: Noncontrast CT of the abdomen and pelvis is performed followed by split bolus contrast-enhanced images using 85 mL Omnipaque 350 contrast.? Postcontrast imaging is performed during the combined nephrogram and excretion phase. Sagittal and coronal reformatted images were obtained on the technologist's workstation for both the precontrast and postcontrast phases. This CT examination was performed using dose optimization techniques as appropriate, variously including the following: *Automated exposure control *Adjustment of mA and/or kV according to patient size (this includes techniques or standardized protocols for targeted exams where dose is matched to indication/reason for exam; i.e. extremities or head) *Use of iterative reconstruction technique DLP: 1040 mGy-cm FINDINGS: LUNG BASES: There is bibasilar dependent hypoaeration. There are mild coronary atherosclerotic calcifications. LIVER, GALLBLADDER, AND BILIARY TREE: The liver is normal in size, shape, and attenuation. A 5.5 cm benign, simple right hepatic lobe cyst is redemonstrated, for which no imaging follow-up is recommended. No focal hepatic solid lesion or biliary ductal dilatation is present. There are multiple gallstones, without wall thickening or obvious pericholecystic inflammatory change. PANCREAS: Unremarkable. SPLEEN: Unremarkable. ADRENAL GLANDS: Unremarkable. KIDNEYS AND URETERS: The kidneys are normal in size, shape, and attenuation. No hydronephrosis, hydroureter or calculi seen. No perinephric stranding. 2 right and 2 left renal low-attenuation simple appearing cysts are seen (9:229, 263, 226 and 260), for which no imaging follow-up is recommended. One at the upper pole of the left kidney measuring 4 mm is too small for full characterization with CT (9:226). 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 BLADDER: Unremarkable. GASTROINTESTINAL TRACT: The small and large bowel are unremarkable. No obstruction, free intraperitoneal air or abscess is seen. No significant diverticulosis or diverticulitis is seen. The appendix is is not identified with certainty; however, there is no finding to suggest appendicitis. ABDOMINAL WALL: There is a diastases rectus. No significant hernia is appreciated. LYMPH NODES: Normal. VASCULAR: There is mild aortoiliac atherosclerotic calcification. No abdominal aortic aneurysm or dissection is seen. PELVIC VISCERA: The uterus and adnexa are unremarkable. OSSEUS STRUCTURES: There is multi-level marked lower thoracic and mild lumbar spondylosis. No acute or aggressive osseous finding is noted. CT/CT urogram IMPRESSION: 1. There are benign, simple bilateral renal cysts, which require no imaging follow-up. One of these, at the upper pole of the left kidney, is too small for full characterization with CT. 2. 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 3. No urinary calculus or obstruction is seen. 4. There is cholelithiasis. 5. There are multi-level degenerative changes of the thoracic, and to a lesser extent lumbar spine.
[2023-10-29] MEDS: iohexoL 350 MG/ML 100 ML INFUS..BTL 85 ML IV (11:26)
[2023-10-29 13:33] LABS: Creatinine POC 0.6 mg/dL (0.5-1.4); GFR POC > 60
== END 2023-10-29 09:51 | disposition home or self-care (01) ==
LOC: HO.CT 09:50
PROVIDERS: PCP Nurse Practitioner Family; Visit Provider Nurse Practitioner Family
DX: R31.0 Gross hematuria (principal)
CPT/HCPCS: 74178; 82565; Q9967

== ENCOUNTER 2023-10-31 09:59 | Outpatient (AMB) | payer OTHER, SELFPAY ==
--- NOTE | 2023-10-31 10:09 | A.OFFVIS_ITS ---
Intake Intake Visit Reasons: cysto/CT Intake Note: Patient presents today for a CYSTOSCOPY Procedure: Meds: None Allergies to Antibiotic: No Known Allergies Blood Thinner: None Urinalysis test cleared for Cysto Disposable Uro-G Cystoscope Cannula: Lot: [id number] Exp: 04/14/2025 Allergies No Known Allergies Allergy (Mild, Verified 10/10/23 10:01) UNKNWON Medication List - Last Reconciled 10/31/23 by Madina Cruz MD [adult pull-ups As directed] atenolol 50 mg PO DAILY [BED LINER As directed] citalopram 20 mg PO DAILY clonazepam 0.5 mg PO BEDTIME clonidine HCl 0.1 mg PO BID 90 days commode (bedside commode) As directed disposable gloves As directed [GLOVES MEDIUM As directed] [incontinence PADS As directed] [incontinence wipes As directed] levothyroxine 112 mcg PO QAM 30 days miscellaneous medical supply 1 ea miscellaneous DAILY omeprazole 40 mg PO DAILY 30 days peg 3350-electrolytes 236-22.74-6.74 -5.86 gram (Golytely) 240 mL PO Q10M 1 day [Personal emergency response system As directed] prazosin 1 mg PO BEDTIME [repair front wheels on rollator As directed] risperidone 0.5 mg PO BEDTIME venlafaxine ER 150 mg PO DAILY vibegron (Gemtesa) 75 mg PO DAILY walker (Ultra-Light Rollator misc) As directed HPI HPI Comments History of Present Illness Details Azul is a 67-year-old female who presents today to the office for a follow-up. 10/31/2023? She is followed today for a cystoscopy procedure. She was seen by Kandice Troy on 09/17/2023 for microscopic hematuria and sent for CT Urogram, also script for tolteridine sent to pharm. The patient states she did not receive the medication, wears depends, leaks with associated urgency. The pt's daughter is with her today. 10/31/2023: Evaluation today?UA-- Leukoc ytes: trace; blood: 2 +. Cystoscopy procedure: consent form was obtained for the procedure. Cystoscopy findings: no suspicious bladder lesions noted, bladder wall thickening was noted. I discussed nicotine cessation and advised the patient that nicotine use is a risk factor for urinary tract cancer. I discussed CT urogram results from 10/29/2023 was not officially read by radiologist and I did review the films and want to wait for the final report which will be discussed with pt when available. 10/31/2023: Plan: Gemtesa 75 mg was orde red to replace tolterodine and SEWING SUPERVISOR will follow-up with the patient regarding CAT scan results when the account engineer is available. Follow-up with SEWING SUPERVISOR in 2 months regarding the effects of Gemtesa. [facility] Medical History Dysphagia, oropharyngeal Humerus fracture Cholelithiases Urge incontinence Hypercholesteremia Hypothyroid Tobacco abuse Anxiety and depression Hypertension Surgical History Adnexal mass History of tonsillectomy Hx of appendectomy Family History Father No problems noted. Mother Hypertension Cancer Social History Housing: Apartment Alcohol intake: never Patient Tobacco Use Status: Current everyday Tobacco user Tobacco use type: Cigarette Cigarette Packs Per Day: 0.5 e-Cigarette/Vaping Use: Never Used Second Hand Smoke Exposure: Yes service: No Current occupational status: disabled Cognitive needs: Yes Hearing needs: No Vision needs: Yes Review of Systems Const Reports as per HPI Eyes Reports no additional complaints ENT Reports no additional complaints Card Reports as per HPI Resp Reports no additional complaints GI Reports no additional complaints Reports as per HPI Musc Details: Patient with previous right-sided humerus fracture Psych Reports as per HPI Endo Reports no additional complaints Office Procedures Cystoscopy Consent Discussed risk and benefit or proposed procedure with the patient. Information consent for procedure given to the patient. Discussed technical aspects, risks, benefits and alternatives in full. Addressed all of the patient's questions and concerns regarding the procedure. The patient demonstrated knowledge and understanding. They wish to proceed with this procedure. Preparation The patient was prepped in the usual manner. A facilities painter was present and in the room. Genitalia was prepped with betadine solution in a sterile manner. Lidocaine Jelly 2% was placed into the urethra and 16Fr flexible Olympus cys toscope was inserted into the meatus after adequate lubrication. Procedure Time out per protocol performed. Bladder Inspection Bladder Inspection: The bladder was inspected in its entirety with utilization retroflexion displaying: Tumor(s): none visualized Trabeculation: moderate Mucosal Erthema: 6'oclock position from bladder neck to trigone likely related to instumentation Orifices: normal shape and position Urethra: normal Cystoscopy findings: no suspicious bladder lesions visualized [id number] DISPOSABLE SCOPE URO-G FLEXIBLE SCOPE Procedure code (CPT) selection complete Office Meds lidocaine HCl 2 % mucosal jelly in applicator Performing Provider: Madina Cruz MD Performing Location: [facility] Administered by: Joann Silva RN on 10/31/23 10:32 Dose Route Admin Location Dispensed Lot Number Expiration Date NDC Warranty Coordinator 10 mL intra-urethral 20 mL naproxen 500 mg tablet Performing Provider: Madina Cruz MD Performing Location: [facility] Administered by: Joann Silva RN on 10/31/23 10:32 Dose Route Admin Location Dispensed Lot Number Expiration Date NDC Warranty Coordinator 500 mg PO 1 tab ciprofloxacin HCl 500 mg tablet Performing Provider: Madina Cruz MD Performing Location: [facility] Administered by: Joann Silva RN on 10/31/23 10:32 Dose Route Admin Location Dispensed Lot Number Expiration Date NDC Warranty Coordinator 500 mg PO 1 tab Results AMB Urinalysis, Automated UA Leukoctes 15 Colby/uL Last Edit by NATALIIA Covington on 10/31/23 10:18 UA Nitrite Negative Last Edit by NATALIIA Covington on 10/31/23 10:18 UA Urobilinogen 0.2 mg/dL Last Edit by NATALIIA Covington on 10/31/23 10:1 8 UA Protein 15 mg/dL Last Edit by Monicacatherinenazario Caldwellirez, RMA on 10/31/23 10:18 UA pH 6.0 Last Edit by Juan Powell, A on 10/31/23 10:18 UA Blood 80 Perry/uL Last Edit by Juan Powell, RMA on 10/31/23 10:18 2+ Juan Powell 10/31/23 10:18 UA Specific [place] 1.020 Last Edit by Monicaestuardo Andre, RMA on 10/31/23 10: 18 UA Ketone Negative Last Edit by Juan Powell, RMA on 10/31/23 10:18 UA Bilirubin 0 mg/dL Last Edit by Monicaestuardo Andre, A on 10/31/23 10:18 UA Glucose 0 mg/dL Last Edit by Monicacatherinenazario Caldwellirez, A on 10/31/23 10:18 Results Reviewed Results Reviewed: Laboratory Last Values Urine pH (Auto) 6.0 10/31/23 10:15 Specific [place] (Auto) 1.020 10/31/23 10:15 Urine Protein (Auto) 15 mg/dL 10/31/23 10:15 Glucose (UA)(Auto) 0 mg/dL 10/31/23 10:15 Urine Ketones (Auto) Negative 10/31/23 10:15 Urine Blood (Auto) 80 Perry/uL 10/31/23 10:15 Urine Nitrite (Auto) Negative 10/31/23 10:15 Urine Bilirubin (Auto) 0 mg/dL 10/31/23 10:15 Urine Urobilinogen (Auto) 0.2 mg/dL 10/31/23 10:15 Leukocyte Esterase (Auto) 15 Colby/uL 10/31/23 10:15 Assessment & Plan Assessment & Plan (1) Nicotine dependence: Code(s): F17.200 - Nicotine dependence, unspecified, uncomplicated (2) Microhematuria: Code(s): R31.29 - Other microscopic hematuria (3) Mixed stress and urge urinary incontinence: Code(s): N39.46 - Mixed incontinence Plan Gemtesa 75 mg was ordered to replace tolterodine and SEWING SUPERVISOR will follow-up with the patient regarding CAT scan results when the account engineer is available. Follow-up with SEWING SUPERVISOR in 2 months regarding the effects of Gemtesa. Orders: Orders AMB Urinalysis Automated Today Z13.9 - Encounter for screening, unspecified AMB Cystoscopy Today N39.46 - Mixed incontinence Medications: New vibegron (Gemtesa) 75 mg PO DAILY 90 tabs 0RF Patient Instructions: The patient had an opportunity to ask questions regarding treatment plan. All questions were answered. Imaging, Laboratory studies and physical exam results were discussed and reviewed in detail. No major barriers to understanding were identified. The patient expressed understanding and agreement with the above tr eatment plan. The patient is aware they should contact our office by phone for worsening of their current condition or the appearance of new symptoms. Compliance is encouraged with any medications and followup testing that is ordered. It is a privilege to be allowed the opportunity to participate in the urologic care of your patient. If you have any questions or concerns regarding treatment for the above conditions please do not hesitate to contact me. The office telephone contact is [phone]. This note is constructed in part using voice recognition software. While every effort has been made to ensure accuracy account engineer errors may have been included. Yours sincerely, Madina Cruz MD Coding Level of Care Code Est Pt Level 3 (73542) Diagnoses Nicotine dependence F17.200 Microhematuria R31.29 Mixed stress and urge urinary incontinence N39.46 CPT Codes Cystoscopy - CPT: 29302-[id number] ([id number])
== END 2023-10-31 11:23 | disposition home or self-care (01) ==
PROVIDERS: PCP Internal Medicine; Visit Provider Urology
DX: R31.29 Other microscopic hematuria (principal); N39.46 Mixed incontinence; F17.200 Nicotine dependence, unspecified, uncomplicated
CPT/HCPCS: 52000; 99213

== ENCOUNTER → 2023-10-31 09:59 | Outpatient (BNVA) | payer OTHER, SELFPAY | PROVIDERS: PCP Internal Medicine; Visit Provider Urology | DX: N39.46 Mixed incontinence (principal); R31.29 Other microscopic hematuria; F17.210 Nicotine dependence, cigarettes, uncomplicated | CPT/HCPCS: 52000; 81003; 99212 ==

== ENCOUNTER 2023-12-26 10:41 | Inpatient (IN) | payer OTHER, SELFPAY ==
[2023-12-26] VITALS (7 sets, daily range): BP systolic 100–155; BP diastolic 55–96; PULSE 83–120; RESP 17–20; TEMP 36.3–37.6; O2SAT 91–100; BMI 36.2
--- NOTE | ~2023-12-26 | XR_ITS ---
EXAMINATION: XR SHOULDER, LEFT CLINICAL INFORMATION: Pain with decreased range of motion COMPARISON: None available. TECHNIQUE: AP external rotation, Grashey, scapular Y, and axillary views of the left shoulder. FINDINGS: There is loss of glenohumeral and AC joint space without periarticular spurring. There are no loose bodies, fracture or dislocation. There is a sclerotic density left humeral head likely a small bone island. The soft tissues are normal. XR/XR shoulder LT min 2V IMPRESSION: Mild degenerative changes left shoulder joint. No visible acute fracture, dislocation or subluxation seen.
--- NOTE | ~2023-12-26 | XR_ITS ---
EXAMINATION: XR CHEST CLINICAL INFORMATION: Weakness COMPARISON: Chest 09/11/2019, CTA chest 02/14/2017 TECHNIQUE: AP upright portable view of the chest was obtained. 2:29 PM FINDINGS: Lung volumes are low. There is right basilar streaky opacity consistent with atelectasis and/or pneumonia. A left pericardial fat pad is noted. No gross pleural effusions. Heart size is normal. No pneumothorax or interstitial pulmonary edema. No change in deformity of the right humeral head. XR/XR chest 1V IMPRESSION: Right basilar atelectasis and/or pneumonia.
--- NOTE | ~2023-12-26 | CT_ITS ---
EXAMINATION: CT HEAD W/O IV CONTRAST CT CERVICAL SPINE W/O IV CONTRAST CLINICAL INFORMATION: Metal status change, status post fall COMPARISON: Head CT from 09/01/2016 TECHNIQUE: Head - Contiguous axial imaging of the head was performed from the skull base to the vertex without the administration of intravenous contrast, and axial images are reconstructed at 2 mm and 5 mm slice thickness. Cervical spine - A volumetric, helical CT acquisition of the cervical spine was obtained without contrast; in addition to the standard set of axial images, multiplanar reformatted images were provided in the coronal and sagittal imaging planes. This CT examination was performed using dose optimization techniques as appropriate, variously including the following: *Automated exposure control *Adjustment of mA and/or kV according to patient size (this includes techniques or standardized protocols for targeted exams where dose is matched to indication/reason for exam; i.e. extremities or head) *Use of iterative reconstruction technique DLP: 1143 mGy-cm (total) FINDINGS: HEAD: No intracranial hemorrhage, extra-axial surface collection, focal mass effect or midline shift. The mckeon-white matter differentiation is maintained. No acute major vascular territory infarction. The ventricles have normal size and configuration; no hydrocephalus. The brainstem and cerebellum are unremarkable. The cerebellar tonsils are normal position. No calvarial fracture. No evidence of scalp hematoma. There is hyperostosis frontalis interna. Moderate mucosal thickening and frothy secretions within the left maxillary and left sphenoid sinus. Orbits and globes are unremarkable. 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 CERVICAL SPINE: The cervical spine has normal curvature. The craniocervical junction is normal. The occipital condyles, dens and atlantodental articulation are intact. Mild degenerative osseous spurring at the anterior atlantodental articulation. The cervical vertebra have normal height and alignment. Mild multilevel facet arthropathy is present. No evidence of fractures in the anterior or posterior elements. No prevertebral edema or soft tissue hematoma. A small posterior disc osteophyte complex is noted at C2-C3. No significant spinal canal stenosis. Thyroid gland is not well seen, appears to be chronically severely atrophied. Mild pleural-based scarring at lung apices. CT/CT cervical spine wo IV con IMPRESSION: * No intracranial hemorrhage or other acute intracranial pathology. * No fracture or malalignment in the cervical spine. * Mucosal thickening/secretions of left maxillary and sphenoid sinuses. Query if patient has any clinical symptoms of sinusitis.
--- NOTE | 2023-12-26 11:42 | ECG_ITS ---
Test Reason : SIEZURE Blood Pressure : / mmHG Vent. Rate : 098 BPM Atrial Rate : 098 BPM P-R Int : 154 ms QRS Dur : 070 ms QT Int : 388 ms P-R-T Axes : 036 005 068 degrees QTc Int : 495 ms Normal sinus rhythm Possible Left atrial enlargement Minimal voltage criteria for LVH, may be normal variant ( R in aVL ) Nonspecific ST abnormality Prolonged QT Abnormal ECG When compared with ECG of 22-JUL-2019 18:54, Vent. rate has increased BY [address] now depressed in Anterior leads Referred By: Generic ED Physician Electronically Signed By:Maragrito Flores
[2023-12-26 12:39] LABS: Basophils Percent Auto 0.2 % (0-2); Hematocrit 40.2 % (37.0-47.0); Hemoglobin 13.4 g/dl (12.0-16.0); Imm Gran Abs Auto 0.06 X10*3/uL (0.00-0.03); Imm Gran Pct Auto 0.5 % (0.0-0.4); Lymphocytes Absolute Auto 1.1 X10*3/uL (1.2-4.9); Lymphocytes Percent Auto 8.8 % (20-40); Mean Corpuscular HGB Conc 33.3 g/dl (31.0-35.0); Mean Corpuscular Volume 84.1 fL (80.0-98.0); Mean Platelet Volume 10.1 fL (9.4-12.3); Monocytes Absolute Auto 1.4 X10*3/uL (0.1-1.2); Monocytes Percent Auto 11.4 % (2-11); Neutrophils Absolute Auto 9.8 x10*3/uL (2.0-8.3); Neutrophils Percent Auto 79.1 % (45-73); Platelet Count 253 X10*3/uL (160-400); Red Blood Count 4.78 X10*6/uL (4.20-5.50); Red Cell Distribution Width 14.4 % (11.0-16.0); White Blood Count 12.4 X10*3/uL (4.8-10.8)
--- NOTE | 2023-12-26 13:12 | ED.GENADULT ---
HPI - General Adult General Chief complaint: General Medical Stated complaint: DIZZY,SZ,FALL OOB,HIGH BP 146/92 PER EMS Time Seen by Provider: 12/26/23 13:06 Source: patient and old records reviewed Mode of arrival: EMS Limitations: no limitations History of Present Illness HPI narrative: 68 yo female from home PMH of HLD, hypothyroidism, anxiety, depression, GERD, HTN she tells me she slept too close to the edge last night and woke up on the floor. She states she feels fine now and has no injury or pain she is alert and oriented x 3. She states she went to bed fine. EMS notes they were called by [employer] and the patient was on the floor altered and hypoxic to 91% - she does tell me she woke up with vomit or white stuff around her mouth. She denies a hx of seizures - she has no headache or tongue biting. She states she has fallen out of bed before. Patient notes she is okay now and feels fine MD complaint: woke up on floor Onset (ago): unknown Severity: moderate Relieving factors: none Exacerbating factors: none Associated symptoms: other (initially confused and dizzy on EMS arrival ) Treatments prior to arrival: other (oxygen) Related Data Home Medications Medication Instructions Recorded Confirmed citalopram 20 mg tablet 20 mg PO DAILY 11/29/20 10/31/23 prazosin 1 mg capsule 1 mg PO BEDTIME 10/10/23 10/31/23 risperidone 0.5 mg tablet 0.5 mg PO BEDTIME 10/10/23 10/31/23 venlafaxine 150 mg 150 mg PO DAILY 10/10/23 10/31/23 capsule,extended release 24 hr Previous Rx's Medication Instructions Recorded clonazepam 0.5 mg tablet 0.5 mg PO BEDTIME #14 tabs 10/03/21 clonidine HCl 0.1 mg tablet 0.1 mg PO BID 90 days #180 tabs 11/27/21 miscellaneous medical supply 1 ea miscellaneous DAILY #1 ea 06/27/22 Personal emergency response system #1 ea 03/04/23 walker (Ultra-Light Rollator misc) #1 ea 04/10/23 commode (bedside commode) #1 ea 07/05/23 repair front wheels on rollator #1 ea 07/16/23 BED LINER #100 ea 07/17/23 GLOVES MEDIUM #1 ea 07/17/23 incontinence PADS #100 ea 07/17/23 adult pull-ups #240 ea 08/06/23 atenolol 50 mg tablet 50 mg PO DAILY #90 tabs 08/19/23 disposable gloves #1,000 ea 08/30/23 incontinence wipes #4 kits 09/12/23 omeprazole 40 mg capsule,delayed 40 mg PO DAILY 30 days #30 caps 10/10/23 release peg 3350-electrolytes 236 240 ml PO Q10M 1 day #4,000 mL 10/10/23 gram-22.74 gram-6.74 gram-5.86 gram solution (Golytely) vibegron 75 mg tablet (Gemtesa) 75 mg PO DAILY #90 tabs 10/31/23 levothyroxine 112 mcg tablet 112 mcg PO QAM 30 days #30 tabs 11/18/23 Allergies Allergy/AdvReac Type Severity Reaction Status Date / Time No Known Allergies Allergy Mild UNKNWON Verified 10/10/23 10:01 Review of Systems Review of Systems: Constitutional : No Fever, No Chills, No Fatigue ENT/Mouth : No sore throat, No Rhinorrhea Eyes: No Eye Pain, No Swelling, No Redness Cardiovascular : No Chest Pain, No SOB, No Dyspnea on Exertion Respiratory : pos Cough, No Sputum Gastrointestinal : No Nausea, No Vomiting, No Diarrhea, No abdominal Pain Genitourinary : No Dysuria, No Urinary Frequency, No Hematuria, Musculoskeletal : No joint pain, No Myalgias, No Joint Swelling Skin : No Skin Lesions, No rash Neuro : No Weakness, No Numbness, No Dizziness, no Headache Psych : No Anxiety/Panic, No Depression All other systems reviewed and are negative [facility] Past Medical History Attestation statement: The following information was validated with the patient. Source: old records reviewed Medical History Dysphagia, oropharyngeal Humerus fracture Cholelithiases Urge incontinence Hypercholesteremia Hypothyroid Tobacco abuse Anxiety and depression Hypertension Surgical History Adnexal mass History of tonsillectomy Hx of appendectomy Family History Family History Father No problems noted. Mother Hypertension Cancer Social History Social History Housing: Apartment Alcohol intake: never Patient Tobacco Use Status: Current everyday Tobacco user Tobacco use type: Cigarette Cigarette Packs Per Day: 0.5 Smoked in Last 30 Days: Yes e-Cigarette/Vaping Use: Never Used Second Hand Smoke Exposure: Yes Use of substances other than those prescribed or required for medical reasons: No Advance Directives: No Advance Directives Information Provided: Yes service: No Current occupational status: disabled Cognitive needs: Yes Hearing needs: No Vision needs: Yes Physical Exam ED Vital Signs: Vital Signs - 24 hr 12/26/23 11:02 12/26/23 12:41 12/26/23 15:00 Temperature 98.2 F 98.2 F Pulse Rate 109 H 98 102 H Respiratory Rate 17 20 20 Blood Pressure 100/56 L 115/71 106/62 Pulse Oximetry 93 96 97 Oxygen Delivery Method Room Air Nasal Cannula Oxygen Flow Rate 2 12/26/23 16:19 Temperature 97.8 F Pulse Rate 91 Respiratory Rate 20 Blood Pressure 124/63 Pulse Oximetry 97 Oxygen Delivery Method Nasal Cannula Oxygen Flow Rate 2 BMI result Body Mass Index 36.2 Appearance: Alert. Oriented X3. No acute distress. Eyes: Pupils equal, round and reactive to light. ENT: Pharynx normal. atrauamtic no tongue biting Neck: Normal inspection. Neck supple. no midline ttp CVS: Normal heart rate and rhythm. Pulses normal. Respiratory: No respiratory distress. Breath sounds normal. Abdomen: Soft and nontender. Skin: Skin warm and dry. Normal skin color. Normal skin turgor. Extremities: No lower extremity edema. No calf ttp Neuro: Oriented X 3. No motor deficit. No sensory deficit. Course Course Course Narrative: at this time infection suspected 414pm - aspiration pneumonia zosyn ordered Medications Administered Generic Name Dose Route Start Last Admin Trade Name Freq PRN Reason Stop Dose Admin Sodium Chloride 1,000 mls @ 200 mls/hr 12/26/23 15:00 12/26/23 16:32 Ns IVCONT 12/26/23 19:59 200 mls/hr .Q5H CHACHO Administration Discontinued Medications Generic Name Dose Route Start Last Admin Trade Name Freq PRN Reason Stop Dose Admin Sodium Chloride 1,000 mls @ 999 mls/hr 12/26/23 15:00 12/26/23 16:32 Ns IV 12/26/23 16:00 Infused .Q1H1M CHACHO Infusion Piperacillin Sod/Tazobactam 50 mls @ 100 mls/hr 12/26/23 16:13 12/26/23 16:43 Sod 3.375 gm/ Sodium Chloride IV 12/26/23 16:42 100 mls/hr ONCE ONE Administration Medical Decision Making Medical Decision Making [facility] Narrative: 68 yo female from home PMH of HLD, hypothyroidism, anxiety, depression, GERD, HTN here after being found on the floor this AM - she states she was okay before bed but then awoke on the ground confused and altered. no prior history of seizures no tongue biting. She reports no change in medication, no ETOH and no drug use. She reports no infectious symptoms. At this non focal exam. Will obtain basic labs, CT head/cspine, metabolic and tox workup along with CXR and UA for any signs of pathology. She could have a had seizure but lactic acid is normal. Initial EKG abnormal will repeat. Differential Diagnosis Differential Diagnoses: The differential diagnosis associated with the presentation includes seizure, toxic or metabolic encephalopathy, medication overuse, lyte abnormality Admission/Observation Consideration of admission/observation: Escalation of care including admission/observation considered admit for rhabdo and IVF along with monitoring given this episode Consult Healthcare Provider Management of the patient was discussed with: Hospitalist (will admit) and Business Communications Instructor (discussed trop and EKGs with cardiology suspect rhabdo) Lab Data [facility] Lab Attestation statement: I reviewed the patient's lab results. 12/26/23 12:29 12/26/23 13:31 Labs: Lab Results 12/26/23 12/26/23 12/26/23 Range/Units 12:29 13:31 13:32 WBC 12.4 H (4.8-10.8) X10*3/uL RBC 4.78 (4.20-5.50) X10*6/uL Hgb 13.4 (12.0-16.0) g/dl Hct 40.2 (37.0-47.0) % MCV 84.1 (80.0-98.0) fL MCH 28.0 (27.0-33.0) pg MCHC 33.3 (31.0-35.0) g/dl RDW 14.4 (11.0-16.0) % Plt Count 253 (160-400) X10*3/uL MPV 10.1 (9.4-12.3) fL Immature Gran % (Auto) 0.5 H (0.0-0.4) % Neut % (Auto) 79.1 H (45-73) % Lymph % (Auto) 8.8 L (20-40) % [place] % (Auto) 11.4 H (2-11) % Eos % (Auto) 0.0 (0-4) % Baso % (Auto) 0.2 (0-2) % Lymph # (Auto) 1.1 L (1.2-4.9) X10*3/uL [place] # (Auto) 1.4 H (0.1-1.2) X10*3/uL Eos # (Auto) 0.0 (0.0-0.4) X10*3/uL Baso # (Auto) 0.0 (0.0-0.2) X10*3/uL Abs Immat Gran (auto) 0.06 H (0.00-0.03) X10*3/uL Absolute Neuts (auto) 9.8 H (2.0-8.3) x10*3/uL Absolute Nucleated RBC 0.000 (0.0-0.012) X10*3/uL Nucleated RBC % (auto) 0.0 (0.0-0.2) /100WBC Sodium 137 (135-145) mmol/L Potassium 3.4 (3.3-5.1) mmol/L Chloride 105 (96-108) mmol/L Carbon Dioxide 18 L (22-29) mmol/L Anion Gap 17 (12-20) BUN 19 H (9-16) mg/dL Creatinine 0.82 (0.5-1.4) mg/dL Estim Creat Clear Calc 64.9 Estimated GFR > 60 Random Glucose 91 (60-115) mg/dL Lactic Acid 1.7 (0.5-2.0) mmol/L Calcium 9.6 (8.4-10.2) mg/dL Magnesium 2.6 (1.6-2.6) mg/dL Total Bilirubin 0.4 (0.0-1.0) mg/dL Direct Bilirubin 0.2 (0.0-0.5) mg/dL AST 177 H (5-31) U/L ALT 42 H (0-31) U/L Alkaline Phosphatase 94 (39-117) U/L Ammonia 33 (13-55) umol/L Total Creatine Kinase 9953 H (26-140) U/L Troponin I High Sens (<3.5-17.0) ng/L Total Protein 8.6 H (6.5-8.0) g/dL Albumin 3.9 (3.5-5.0) g/dL TSH 0.16 L (0.32-4.0) uIU/mL Free T4 1.16 (0.71-1.85) ng/dL Urine Color Urine Appearance Urine pH (5.0-9.0) Ur Specific [place] (1.005-1.025) Urine Protein (Neg-Trace) mg/dL Urine Glucose (UA) (Negative) mg/dL Urine Ketones (Negative) mg/dL Urine Blood (Negative) Urine Nitrite (Negative) Ur Leukocyte Esterase (Negative) Urine RBC (0-2) /HPF Urine WBC (0-5) /HPF Ur Squamous Epith Cells (0-2) /HPF Urine Bacteria (None Seen) Hyaline Casts (0-2) /LPF Urine Opiates Screen (Not Detect) Urine Fentanyl Screen (Not Detect) Ur Barbiturates Screen (Not Detect) Ur Phencyclidine Scrn (Not Detect) Ur Amphetamines Screen (Not Detect) U Benzodiazepines Scrn (Not Detect) Urine Cocaine Screen (Not Detect) U Marijuana (THC) Screen (Not Detect) 12/26/23 12/26/23 Range/Units 15:10 16:25 WBC (4.8-10.8) X10*3/uL RBC (4.20-5.50) X10*6/uL Hgb (12.0-16.0) g/dl Hct (37.0-47.0) % MCV (80.0-98.0) fL MCH (27.0-33.0) pg MCHC (31.0-35.0) g/dl RDW (11.0-16.0) % Plt Count (160-400) X10*3/uL MPV (9.4-12.3) fL Immature Gran % (Auto) (0.0-0.4) % Neut % (Auto) (45-73) % Lymph % (Auto) (20-40) % [place] % (Auto) (2-11) % Eos % (Auto) (0-4) % Baso % (Auto) (0-2) % Lymph # (Auto) (1.2-4.9) X10*3/uL [place] # (Auto) (0.1-1.2) X10*3/uL Eos # (Auto) (0.0-0.4) X10*3/uL Baso # (Auto) (0.0-0.2) X10*3/uL Abs Immat Gran (auto) (0.00-0.03) X10*3/uL Absolute Neuts (auto) (2.0-8.3) x10*3/uL Absolute Nucleated RBC (0.0-0.012) X10*3/uL Nucleated RBC % (auto) (0.0-0.2) /100WBC Sodium (135-145) mmol/L Potassium (3.3-5.1) mmol/L Chloride (96-108) mmol/L Carbon Dioxide (22-29) mmol/L Anion Gap (12-20) BUN (9-16) mg/dL Creatinine (0.5-1.4) mg/dL Estim Creat Clear Calc Estimated GFR Random Glucose (60-115) mg/dL Lactic Acid (0.5-2.0) mmol/L Calcium (8.4-10.2) mg/dL Magnesium (1.6-2.6) mg/dL Total Bilirubin (0.0-1.0) mg/dL Direct Bilirubin (0.0-0.5) mg/dL AST (5-31) U/L ALT (0-31) U/L Alkaline Phosphatase (39-117) U/L Ammonia (13-55) umol/L Total Creatine Kinase (26-140) U/L Troponin I High Sens 228.2 H* (<3.5-17.0) ng/L Total Protein (6.5-8.0) g/dL Albumin (3.5-5.0) g/dL TSH (0.32-4.0) uIU/mL Free T4 (0.71-1.85) ng/dL Urine Color Yellow Urine Appearance Hazy Urine pH 5.5 (5.0-9.0) Ur Specific [place] >= 1.030 H (1.005-1.025) Urine Protein 100 (2+) H (Neg-Trace) mg/dL Urine Glucose (UA) Negative (Negative) mg/dL Urine Ketones 15 (Negative) mg/dL Urine Blood Large (3+) H (Negative) Urine Nitrite Negative (Negative) Ur Leukocyte Esterase Negative (Negative) Urine RBC 0-2 (0-2) /HPF Urine WBC 0-5 (0-5) /HPF Ur Squamous Epith Cells 0-2 (0-2) /HPF Urine Bacteria None Seen (None Seen) Hyaline Casts 3-5 (0-2) /LPF Urine Opiates Screen Not Detected (Not Detect) Urine Fentanyl Screen Not Detected (Not Detect) Ur Barbiturates Screen Not Detected (Not Detect) Ur Phencyclidine Scrn Not Detected (Not Detect) Ur Amphetamines Screen Not Detected (Not Detect) U Benzodiazepines Scrn Not Detected (Not Detect) Urine Cocaine Screen Not Detected (Not Detect) U Marijuana (THC) Screen Not Detected (Not Detect) Independent Interpretation I performed an independent interpretation of an: EKG, Plain X-Ray (?aspiration with new O2 requirement) and CT Scan (no trauma) Interpretation: Rate: 98 Rhythm: NSR Dane: normal , LVH Normal P waves. Normal ANNE-MARIE. Normal QRS complex. ST T wave : nonspecific changes with very slight ST depressions in V4-V6 no BRIDGET qTC: normal prior studies: changed from prior The study has been interpreted contemporaneously by me. EKG#2. Rate: 93 Rhythm: NSR Dane: normal Normal P waves. Normal ANNE-MARIE. Normal QRS complex. ST T wave : nonspecific ST T wave changes, inverted T waves V1-V2 qTC: 522 prior studies: improved from prior The study has been interpreted contemporaneously by me. . Radiology Impression Discussion of test interpretation with radiology: I have reviewed the radiologist's reading. Independent Historian Clinical information obtained from an independent historian. History obtained from or confirmed by: EMS External Record Review External record reviewed: Inpatient record Critical Care Time Critical Care Time Critical Care Time: Yes Total Critical Care Time: 35 Attestation: hypoxia treatment, IVF for rhabdo, medical consult I attest to this time spent taking care of the patient Discharge Plan Discharge Clinical Impression: Acute confusional state, Elevated liver enzymes, Elevated troponin Rhabdomyolysis Qualifiers: Rhabdomyolysis type: non-traumatic Qualified Code(s): M62.82 - Rhabdomyolysis Aspiration pneumonia Qualifiers: Aspiration pneumonia type: unspecified Laterality: right Lung location: lower lobe of lung Qualified Code(s): J69.0 - Pneumonitis due to inhalation of food and vomit Patient Disposition: Admitted As Inpatient
[2023-12-26 14:05] LABS: Ammonia 33 umol/L (13-55)
[2023-12-26 14:06] LABS: Lactic Acid 1.7 mmol/L (0.5-2.0)
[2023-12-26 14:07] LABS: Anion Gap 17 (12-20)
[2023-12-26 14:10] LABS: Blood Urea Nitrogen 19 mg/dL (9-16); Calcium 9.6 mg/dL (8.4-10.2); Carbon Dioxide 18 mmol/L (22-29); Chloride 105 mmol/L (96-108); Creatinine Clr Calc Pharmacy 64.9; Estimated Glomerular Filt Rate > 60; Glucose Random 91 mg/dL (60-115); Potassium 3.4 mmol/L (3.3-5.1); Sodium 137 mmol/L (135-145)
[2023-12-26 14:24] LABS: Alanine Aminotransferase 42 U/L (0-31); Albumin Level 3.9 g/dL (3.5-5.0); Alkaline Phosphatase 94 U/L (39-117); Aspartate Amino Transferase 177 U/L (5-31); Bilirubin Direct 0.2 mg/dL (0.0-0.5); Bilirubin Total 0.4 mg/dL (0.0-1.0); Magnesium 2.6 mg/dL (1.6-2.6); Total Protein 8.6 g/dL (6.5-8.0)
[2023-12-26 14:35] LABS: TSH reflex Free T4 0.16 uIU/mL (0.32-4.0)
[2023-12-26] MEDS: 0.9 % Sodium Chloride 1,000 ML 999 ML IV (15:11)
[2023-12-26 15:26] LABS: Free T4 (Free Thyroxine) 1.16 ng/dL (0.71-1.85)
[2023-12-26 15:36] LABS: Appearance Urine Hazy; Color Urine Yellow; Glucose Urine UA Negative (Negative); Leukocyte Esterase Urine Negative (Negative); Nitrite Urine Negative (Negative); PH 5.5 (5.0-9.0); Specific Gravity - Urine >= 1.030 (1.005-1.025); UMIC TRIGGER UACC YES; Urine Blood Large (3+) (Negative); Urine Ketones 15 mg/dL (Negative); Urine Protein 100 (2+) mg/dL (Neg-Trace)
[2023-12-26 15:47] LABS: Bacteria Urine None Seen (None Seen); RBC Urine 0-2 /HPF (0-2); Squamous Epithelial Cell Urine 0-2 /HPF (0-2); WBC Urine 0-5 /HPF (0-5)
--- NOTE | 2023-12-26 15:52 | ECG_ITS ---
Test Reason : WEAKNESS Blood Pressure : / mmHG Vent. Rate : 093 BPM Atrial Rate : 093 BPM P-R Int : 162 ms QRS Dur : 072 ms QT Int : 420 ms P-R-T Axes : 038 000 052 degrees QTc Int : 522 ms Normal sinus rhythm Minimal voltage criteria for LVH, may be normal variant ( R in aVL ) Nonspecific ST and T wave abnormality Abnormal ECG When compared with ECG of 26-DEC-2023 11:58, ST no longer depressed in Anterior leads Referred By: Yajaira Oconnor Electronically Signed By:Margarito Flores
[2023-12-26 16:01] LABS: Amphetamine Screen Urine Not Detected (Not Detect); Barbiturates, Urine Not Detected (Not Detect); Benzodiazepines Screen Urine Not Detected (Not Detect); Cannabinoid Screen Urine Not Detected (Not Detect); Cocaine Screen Urine Not Detected (Not Detect); Fentanyl, urine Not Detected (Not Detect); Opiate Screen Urine Not Detected (Not Detect); Phencyclidine Screen Urine Not Detected (Not Detect)
--- NOTE | 2023-12-26 16:30 | MHC.EDTECH ---
This pct assumed care of Pt at 1500 ,vitals taken ,repeated ekg taken and was read by Provider ,trop drawn and sent to lab.
[2023-12-26] MEDS: 0.9 % Sodium Chloride 1,000 ML 200 ML IVCONT (16:32)
[2023-12-26] MEDS: Piperacillin Sodium/Tazobactam 3.375 GM in 0.9 % Sodium Chloride 50 ML IV (16:43)
[2023-12-26 17:05] LABS: Troponin-I High Sensitivity 228.2 ng/L (<3.5-17.0)
--- NOTE | 2023-12-26 18:22 | P.HPHOSP_ITS ---
History of Present Illness Date of Service: 12/26/23 Chief Complaint: Fall 68-year-old female patient with multiple medical issues including history of hyperlipidemia, hypertension, hypothyroidism, anxiety, depression, GERD, chronic smoker who was brought in to [facility] by EMS since according to patient she went to bed fine last night, she was sleeping close to the edge of bed, she tried to get out of bed that is too high and she fell to the floor, she pressed the lifeline EMS arrived found patient on the floor, altered and angela 91%, patient denies symptoms of lightheadedness dizziness, no headache, no chest pain, but she does complain of shortness of breath, she denies nausea, no vomiting, no fevers, no chills, no new cough, denies use of alcohol, denies new medication, denied seizure-like activity, denies head injury, in the emergency room she was noted to have an elevated WBC count of 12,400, stable electrolytes, renal function and blood sugars, troponin elevated to 228, CPK 9953, elevated AST 177, ALT 42, ammonia level of 33 TSH of 0.16 with normal free T4, urinalysis showed no bacteria, chest x-ray showed right basilar atelectasis and/or pneumonia,CT head and C-spine showed no acute abnormality, EKG showed nonspecific ST changes and prolonged QT, patient is on risperidone, clonidine, atenolol at home. Review of Systems 2 Review of Systems: General no headache no dizziness no fever chills. CVS no chest pain, no palpitation. Respiratory no cough, acute shortness of breath. Gastrointestinal no nausea no vomiting, no abdominal pain chronic urine urgency Musculoskeletal left shoulder pain with restricted range of motion All other system reviewed and negative [facility] Medical History Dysphagia, oropharyngeal Humerus fracture Cholelithiases Urge incontinence Hypercholesteremia Hypothyroid Tobacco abuse Anxiety and depression Hypertension Family History Father No problems noted. Mother Hypertension Cancer Surgical History Adnexal mass History of tonsillectomy Hx of appendectomy Social History Household Members: None Housing: Apartment Do you presently have visiting nurse or other home services: Yes Alcohol intake: never Patient Tobacco Use Status: Current everyday Tobacco user Tobacco use type: Cigarette Cigarette Packs Per Day: 1 Cigarettes Per Day: 20.0 Smoked in Last 30 Days: Yes e-Cigarette/Vaping Use: Never Used Patient Interested in Nicotine Replacement: No Second Hand Smoke Exposure: Yes Use of substances other than those prescribed or required for medical reasons: No Currently Displaying Signs/Symptoms of Drug Intoxication Withdrawal: No Have you been hit, kicked, punched, or otherwise hurt by someone within the past year? If so, by whom?: No Do you feel safe in your current relationship?: Yes Is there a partner from a previous relationship who is making you feel unsafe now?: No Are you made to feel afraid or neglected: No Advance Directives: No Advance Directives Information Provided: Yes Do you have thoughts of harming others: None Do you have a plan to hurt others: No Plan Recently lost weight without trying: No Eating poorly because of decreased appetite: No Nutrition Risks: No Nutritional Risk Patient : No : No Poor oral hygiene: No service: No Current occupational status: disabled Cognitive needs: Yes Hearing needs: No Vision needs: Yes Meds Allergies Allergy/AdvReac Type Severity Reaction Status Date / Time No Known Allergies Allergy Mild [place] Verified 10/10/23 10:01 Active Medications: Current Medications Acetaminophen (Acetaminophen 325 Mg Tablet) 650 mg PO Q6H PRN PRN Reason: Pain, Mild (Pain Scale 1-3) Benzonatate (Benzonatate 100 Mg Capsule) 100 mg PO TID PRN PRN Reason: Cough Docusate Sodium (Docusate Sodium 100 Mg Capsule) 100 mg PO DAILY PRN PRN Reason: Constipation Enoxaparin Sodium (Enoxaparin Sodium 40 Mg/0.4 Ml Syringe) 40 mg SUBCUT Q24H CHACHO Sodium Chloride (Ns) 1,000 mls @ 200 mls/hr IVCONT .Q5H CHACHO Stop: 12/26/23 19:59 Last Admin: 12/26/23 16:32 Dose: 200 mls/hr Ceftriaxone Sodium 1 gm/ (Sodium Chloride) 50 mls @ 100 mls/hr IV Q24H [facility]O Azithromycin 500 mg/ Sodium (Chloride) 250 mls @ 125 mls/hr IV Q24H [facility] Ondansetron HCl (Ondansetron Hcl 4 Mg/2 Ml Vial) 4 mg IVPUSH Q8H PRN PRN Reason: Nausea and Vomiting Sodium Chloride (0.9 % Sodium Chloride Flush 3 Ml Syringe) 3 ml IVFLUSH QSHIFT [facility] Home Medications Medication Instructions Recorded Confirmed Last Taken Type prazosin 1 mg capsule 1 mg PO BEDTIME 10/10/23 12/26/23 12/25/23 History venlafaxine 150 mg 150 mg PO DAILY 10/10/23 12/26/23 12/26/23 History capsule,extended release 24 hr clonazepam 0.5 mg tablet 0.5 mg PO BID 12/26/23 12/26/23 12/26/23 History risperidone 1 mg tablet 1 mg PO DAILY 12/26/23 12/26/23 12/26/23 History Physical Exam 2 Vital Signs and Narrative: Vital Signs: Last Vital Signs Temp 97.8 F 12/26/23 16:19 Pulse 91 12/26/23 16:19 Resp 20 12/26/23 16:19 BP 124/63 12/26/23 16:19 Pulse Ox 97 12/26/23 16:19 O2 Del Method Nasal Cannula 12/26/23 16:19 O2 Flow Rate 2 12/26/23 16:19 BMI result Body Mass Index 36.2 Const: Other: General awake alert x3, resting comfortably in no acute distress. Anicteric sclera Neck supple no JVD. CVS regular rate rhythm, Respiratory lungs clear to auscultation, no respiratory distress, no wheeze, no rhonchi. Gastrointestinal abdomen soft, nontender, bowel sounds audible, no guarding , no rigidity. Extremities no edema. Neuro non focal , speech clear, unable to lift left upper extremity due to limited range of motion left shoulder, due to chronic pain. Skin no rash Psych appropriate affect Results Labs 12/27/23 06:38 12/27/23 06:38 Labs: Laboratory Results - last 24 hr 12/26/23 12/26/23 12/26/23 12:29 13:31 13:32 MCV 84.1 MCH 28.0 MCHC 33.3 RDW 14.4 Plt Count 253 MPV 10.1 Immature Gran % (Auto) 0.5 H Neut % (Auto) 79.1 H Lymph % (Auto) 8.8 L Buchanan % (Auto) 11.4 H Eos % (Auto) 0.0 Baso % (Auto) 0.2 Lymph # (Auto) 1.1 L [place] # (Auto) 1.4 H Eos # (Auto) 0.0 Baso # (Auto) 0.0 Abs Immat Gran (auto) 0.06 H Absolute Neuts (auto) 9.8 H Absolute Nucleated RBC 0.000 Nucleated RBC % (auto) 0.0 Anion Gap 17 Estim Creat Clear Calc 64.9 Estimated GFR > 60 Random Glucose 91 Lactic Acid 1.7 Calcium 9.6 Magnesium 2.6 Total Bilirubin 0.4 Direct Bilirubin 0.2 AST 177 H ALT 42 H Alkaline Phosphatase 94 Ammonia 33 Total Creatine Kinase 9953 H Total Protein 8.6 H Albumin 3.9 TSH 0.16 L Free T4 1.16 Urine Color Urine Appearance Urine pH Ur Specific [place] Urine Protein Urine Glucose (UA) Urine Ketones Urine Blood Urine Nitrite Ur Leukocyte Esterase Urine RBC Urine WBC Ur Squamous Epith Cells Urine Bacteria Hyaline Casts Urine Opiates Screen Urine Fentanyl Screen Ur Barbiturates Screen Ur Phencyclidine Scrn Ur Amphetamines Screen U Benzodiazepines Scrn Urine Cocaine Screen U Marijuana (THC) Screen 12/26/23 15:10 MCV MCH MCHC RDW Plt Count MPV Immature Gran % (Auto) Neut % (Auto) Lymph % (Auto) Buchanan % (Auto) Eos % (Auto) Baso % (Auto) Lymph # (Auto) [place] # (Auto) Eos # (Auto) Baso # (Auto) Abs Immat Gran (auto) Absolute Neuts (auto) Absolute Nucleated RBC Nucleated RBC % (auto) Anion Gap Estim Creat Clear Calc Estimated GFR Random Glucose Lactic Acid Calcium Magnesium Total Bilirubin Direct Bilirubin AST ALT Alkaline Phosphatase Ammonia Total Creatine Kinase Total Protein Albumin TSH Free T4 Urine Color Yellow Urine Appearance Hazy Urine pH 5.5 Ur Specific [place] >= 1.030 H Urine Protein 100 (2+) H Urine Glucose (UA) Negative Urine Ketones 15 Urine Blood Large (3+) H Urine Nitrite Negative Ur Leukocyte Esterase Negative Urine RBC 0-2 Urine WBC 0-5 Ur Squamous Epith Cells 0-2 Urine Bacteria None Seen Hyaline Casts 3-5 Urine Opiates Screen Not Detected Urine Fentanyl Screen Not Detected Ur Barbiturates Screen Not Detected Ur Phencyclidine Scrn Not Detected Ur Amphetamines Screen Not Detected U Benzodiazepines Scrn Not Detected Urine Cocaine Screen Not Detected U Marijuana (THC) Screen Not Detected Imaging Radiologist's Impressions: Impressions Cervical Spine CT 12/26/23 14:31 IMPRESSION: * No intracranial hemorrhage or other acute intracranial pathology. * No fracture or malalignment in the cervical spine. * Mucosal thickening/secretions of left maxillary and sphenoid sinuses. Query if patient has any clinical symptoms of sinusitis. Head CT 12/26/23 14:31 IMPRESSION: * No intracranial hemorrhage or other acute intracranial pathology. * No fracture or malalignment in the cervical spine. * Mucosal thickening/secretions of left maxillary and sphenoid sinuses. Query if patient has any clinical symptoms of sinusitis. Chest X-Ray 12/26/23 14:36 IMPRESSION: Right basilar atelectasis and/or pneumonia. Assessment and Plan (1) Elevated troponin: Status: Acute (2) Elevated liver enzymes: Status: Acute (3) Aspiration pneumonia: Qualifiers: Aspiration pneumonia type: unspecified Laterality: right Lung location: lower lobe of lung Qualified Code(s): J69.0 - Pneumonitis due to inhalation of food and vomit Status: Acute (4) Rhabdomyolysis: Qualifiers: Rhabdomyolysis type: non-traumatic Qualified Code(s): M62.82 - Rhabdomyolysis Status: Acute Plan 68-year-old female with multiple medical issues presented due to a fall with no preceding symptoms of lightheadedness or dizziness noted to have elevated WBC tachycardia question pneumonia and elevated troponin, CPK will admit to telemetry unit with diagnosis of sepsis due to pneumonia and further workup for elevated troponin and abnormal EKG. Sepsis due to pneumonia question aspiration Admit to telemetry place on IV ceftriaxone and azithromycin Supportive care with cough medication, analgesics no evidence of hypoxia Acute confusional state noted by EMS resolved,currently no evidence of encephalopathy. Elevated troponin with no chest pain, likely due to rhabdo, EKG with nonspecific ST changes, will repeat troponin, check lipid profile, echocardiogram and cardiology consultation. Elevated CPK likely due to fall , normal renal function, will treat with IV fluids follow CPK. Elevated LFTs, no abdominal pain follow lfts, likely due to rhabdo. Obesity class 2 recommend low-calorie diet. Tobacco use disorder will place on nicotine patch 21 mg daily, counseling done. Mood disorder on multiple psychiatric medication including risperidone, venlafaxine, prazosin and clonazepam Hypertension, soft blood pressures continue atenolol will hold clonidine tonight and adjust blood pressure medications. DVT prophylaxis Lovenox subQ Code status full code In my clinical judgment patient need to night inpatient hospitalization for management of sepsis with pneumonia requiring IV antibiotic and close follow-up of elevated troponin. Quality Stroke Does the patient have a stroke diagnosis?: No VTE Prior VTE?: No VTE Risk Level:: Medical - moderate - high VTE Device Contraindication: Treatment Not Indicated VTE Drug Contraindication: N/A - Med Ordered
--- NOTE | 2023-12-26 18:35 | PHA.MEDREC ---
Pharmacy Consult ? Medication Reconciliation Pharmacy has completed the medication reconciliation. Patient reported medications. Patient reported ripseridone once a day although her prescriptions are for 1 mg Daily and 1.5 mg at bedtime. Roxy Hilton, PharmD
--- NOTE | 2023-12-26 19:53 | MHC.EDTECH ---
PATIENT WAS INCONTINENT OF URINE CARE GIVEN ,AND BEDDING CHANGE ,VITALS TAKEN AND PATIENT BELONGING LIST DONE ,PATIENT HAS A BED ON IMC ,WAITING FOR NURSE TO NURSE REPORT .
[2023-12-26] MEDS: Azithromycin 500 MG in 0.9 % Sodium Chloride 250 ML 125 MG IV (19:59)
[2023-12-26] MEDS: Enoxaparin Sodium 40 MG/0.4 ML SYRINGE SUBCUT (19:59)
[2023-12-26 20:38] LABS: Troponin-I High Sensitivity 184.2 ng/L (<3.5-17.0)
[2023-12-26] MEDS: Prazosin HCL 1 MG CAPSULE PO (21:14)
[2023-12-26] MEDS: clonazePAM 0.5 MG TABLET PO (21:14)
[2023-12-26] MEDS: cefTRIAXone sodium 1 GM in 0.9 % Sodium Chloride 50 ML IV (21:57)
[2023-12-26] MEDS: 0.9 % Sodium Chloride Flush 3 ML SYRINGE IVFLUSH (23:45)
[2023-12-27] VITALS (7 sets, daily range): BP systolic 131–143; BP diastolic 60–82; PULSE 79–104; RESP 18–20; TEMP 36.1–37.8; O2SAT 94–98
[2023-12-27] MEDS: Levothyroxine Sodium 112 MCG TABLET PO (05:11)
--- NOTE | 2023-12-27 07:00 | CA_ITS ---
Transthoracic Echocardiogram Patient (Last, First, Middle): Azul Jin, Gender: Female Date of : 1955 Age: 68 Procedure Date: 12/27/2023 Procedure Type: Transthoracic Echocardiogram Location: [facility] Height: 152.4 cm Weight: 83.92 kg BSA: 1.81 m2 Heart Rate: 95 bpm BP: 139 / 72 mmHg Independent Crop Consultant: Referring MD: Cammie Pro MD Symptoms: elevated troponin Study Quality: Adequate w contrast ECG Rhythm: Sinus Conclusions: - Normal left ventricular size and systolic function. There is mildly increased left ventricular wall thickness. The visually estimated ejection fraction is between 60-65%. - E/E prime ratio is between 8 and 15 consistent with indeterminate filling pressures. - Normal right ventricular cavity size and systolic function. Findings Procedure Information Contrast agent, definity, is being given per protocol without apparent complications. Left Ventricle Normal left ventricular size and systolic function. There is mildly increased left ventricular wall thickness. The visually estimated ejection fraction is between 60-65%. There is no evidence of regional wall motion abnormalities. Abnormal diastolic function is noted. Spectral Doppler is indicative of an impaired relaxation filling pattern. E/E prime ratio is between 8 and 15 consistent with indeterminate filling pressures. Right Ventricle Normal right ventricular cavity size and systolic function. Atria The left atrium is normal in size. Aortic Valve Normal aortic valve structure and function. There is no aortic valve stenosis. There is no aortic valve regurgitation. Mitral Valve The mitral valve appears normal. There is no mitral valve regurgitation. There is no mitral valve stenosis. Pulmonic Valve The pulmonic valve is likely normal. Tricuspid Valve Normal tricuspid valve structure. Normal right atrial pressure. There is no evidence of pulmonary hypertension. Great Vessels All visible segments of the aorta are normal in size. The visualized portions of the pulmonary artery and branches are normal. Venous The inferior vena cava is normal in size and collapses greater than 50% with inspiration. Pericardium/Pleural There is no evidence of pericardial effusion. Prior Study Comparison No prior study available for comparison. Measurements 2D Linear Measurements IVSd: 0.99 0.6-0.9/0.6-1.0 cm LVIDd: 4.06 3.9-5.3/4.2-5.9 cm LVIDd Index: 2.24 2.4-3.2/2.2-3.1 cm/m2 LVIDs: 2.73 2.0-3.6 cm LVPWd: 1.01 0.7-1.1 cm LA Diam: 2.40 2.7-3.8/3.0-4.0 cm LAIDs Index: 1.33 1.5-2.3 cm/m2 LV Mass: 162.31 67-162/88-224 g LV Mass Index: 89.67 43-95/49-115 g/m2 LVOT Diam: 2.00 3.0+(-)1.3 cm Mitral Valve MV Pk E: 0.65 MV PK A: 0.95 MV Decel Time: 124.00 E/A: 0.70 E'Lateral: 6.09 E'Medial: 5.33 E/E' Med: 12.20 E/E' Lat: 10.70 PHT: 36.00 MVA PHT: 6.11 Decel Yell: 5.26 Aortic Valve AoV Pk Justen: 1.75 AoV Mn Justen: 1.14 AoV VTI: 0.30 AoV Pk Grad: 12.00 Aov Mn Grad: 6.00 MARISOL Cont.VTI: 2.29 LVOT LVOT Pk Justen: 1.31 LVOT Mn Justen: 0.89 LVOT VTI: 0.22 LVOT Pk Grad: 7.00 LVOT Mn Grad: 4.00 LVOT Diam: 2.00 LVOT Area: 3.14 Diastolic Function MV Pk E: 0.65 MV Pk A: 0.95 E/A: 0.70 E'Medial: 5.33 E/E' Med: 12.20 E' Laterial: 6.09 E/E' Lat: 10.70 Right Ventricle TAPSE (mm): 23.90 TVS' Justen: 18.00 Tricuspid Valve TR Pk Justen: 1.75 TR Pk Grad: 12.00 RA Press: 8.00 RVSP: 20.00 Great Vessels Aorta Sinus of Valsalva: 3.20 2.0-3.5 cm Ao Asc: 3.20 2.1-3.4 cm Pulmonary Valve PV Pk Justen: 1.14 Peak PV Grad: 5.00 Updated in Other Vendor System with Status of Final Margarito Flores MD electronically signed on 12/27/2023 7:41:28 PM with status of Final
[2023-12-27 07:39] LABS: Hematocrit 37.9 % (37.0-47.0); Hemoglobin 12.7 g/dl (12.0-16.0); Mean Corpuscular HGB Conc 33.5 g/dl (31.0-35.0); Mean Corpuscular Hemoglobin 28.8 pg (27.0-33.0); Mean Corpuscular Volume 85.9 fL (80.0-98.0); Mean Platelet Volume 11.1 fL (9.4-12.3); Platelet Count 222 X10*3/uL (160-400); Red Blood Count 4.41 X10*6/uL (4.20-5.50); Red Cell Distribution Width 14.8 % (11.0-16.0); White Blood Count 7.7 X10*3/uL (4.8-10.8)
[2023-12-27 07:55] LABS: Alanine Aminotransferase 50 U/L (0-31); Albumin Level 3.3 g/dL (3.5-5.0); Alkaline Phosphatase 80 U/L (39-117); Anion Gap 13 (12-20); Aspartate Amino Transferase 211 U/L (5-31); Bilirubin Direct 0.2 mg/dL (0.0-0.5); Bilirubin Total 0.4 mg/dL (0.0-1.0); Blood Urea Nitrogen 11 mg/dL (9-16); Carbon Dioxide 21 mmol/L (22-29); Chloride 109 mmol/L (96-108); Cholesterol 207 mg/dL (<200); Creatinine Clr Calc Pharmacy 79.4; Estimated Glomerular Filt Rate > 60; Glucose Random 98 mg/dL (60-115); HDL Cholesterol 43 mg/dL (>40); LDL Cholesterol Calculated 131 mg/dL (<100); Potassium 3.1 mmol/L (3.3-5.1); Sodium 140 mmol/L (135-145); Total Protein 7.4 g/dL (6.5-8.0); Triglycerides 168 mg/dL (<150)
[2023-12-27 08:06] LABS: Calcium 8.5 mg/dL (8.4-10.2)
[2023-12-27] MEDS: atenoloL 50 MG TABLET PO (08:48)
[2023-12-27] MEDS: Potassium Chloride ER 20 MEQ TAB.ER.PRT 40 MEQ PO (08:48)
[2023-12-27] MEDS: Nicotine 21 MG PATCH.TD24 TRANSDERMA (08:48)
[2023-12-27] MEDS: cloNIDine HCL 0.1 MG TABLET PO (08:48)
[2023-12-27] MEDS: risperiDONE 1 MG TABLET PO (08:48)
[2023-12-27] MEDS: clonazePAM 0.5 MG TABLET PO ×2 (08:49→21:01)
[2023-12-27] MEDS: 0.9 % Sodium Chloride 1,000 ML 100 ML IVCONT ×2 (08:49→22:51)
[2023-12-27] MEDS: 0.9 % Sodium Chloride Flush 3 ML SYRINGE IVFLUSH ×2 (08:49→14:04)
--- NOTE | 2023-12-27 09:28 | MHC.CM.PN ---
Addendum entered by Nevin Torres 12/27/23 15:16: Per pts PCP office, she has [facility]. This CM attempted to place referral to them on [facility], but they were not found on the system. This CM attempted to call [facility] through multiple numbers found via internet search, unable to get through to anyone. Addendum entered by Nevin Torres 12/27/23 09:48: Per [facility], pt is not active with them. This CM placed a call to pts PCP's office to verify the pts [facility] if active with one, awaiting return call. Original Note: IMM 12/27. Pt lives at home alone, her son sometimes stays with her. Pt stats she has [facility] daily (31 hours/week), and has [facility] services. Pts states she uses a cane, and a walker. Pts granddaughter will transport her home at D/C. Pt states she has a HCP, copy requested. PCP: Dr. Elissa Asencio
[2023-12-27] MEDS: Venlafaxine HCl ER 150 MG CAP.ER.24H PO (11:13)
--- NOTE | 2023-12-27 11:49 | P.CONCA_ITS ---
History of Present Illness History of Present Illness Date of Service: 12/27/23 Requesting physician: Cammie Pro Chief complaint: sepsis/elevated troponin Narrative: [age] year female presenting with fall and aspiration pneumonia. She could not get up from the floor and was brought in by EMS. She was on the floor for some time. She has elevated CPK levels and mildly elevated troponin levels. Kidney function is normal. She also has mildly elevated liver enzymes. Overall clinical story is consistent with rhabdomyolysis. She is denying any chest discomfort or shortness of breath currently. She is on antibiotics. EKGs showing nonspecific changes and no signs of ischemia obvious. [facility] Past Medical History Medical History Dysphagia, oropharyngeal Humerus fracture Cholelithiases Urge incontinence Hypercholesteremia Hypothyroid Tobacco abuse Anxiety and depression Hypertension Family History Family History Father No problems noted. Mother Hypertension Cancer Surgical History Surgical History Adnexal mass History of tonsillectomy Hx of appendectomy Social History Social History Household Members: None Housing: Apartment Do you presently have visiting nurse or other home services: Yes Alcohol intake: never Patient Tobacco Use Status: Current everyday Tobacco user Tobacco use type: Cigarette Cigarette Packs Per Day: 1 Cigarettes Per Day: 20.0 Smoked in Last 30 Days: Yes e-Cigarette/Vaping Use: Never Used Patient Interested in Nicotine Replacement: No Second Hand Smoke Exposure: Yes Use of substances other than those prescribed or required for medical reasons: No Currently Displaying Signs/Symptoms of Drug Intoxication Withdrawal: No Have you been hit, kicked, punched, or otherwise hurt by someone within the past year? If so, by whom?: No Do you feel safe in your current relationship?: Yes Is there a partner from a previous relationship who is making you feel unsafe now?: No Are you made to feel afraid or neglected: No Advance Directives: No Advance Directives Information Provided: Yes Do you have thoughts of harming others: None Do you have a plan to hurt others: No Plan Recently lost weight without trying: No Eating poorly because of decreased appetite: No Nutrition Risks: No Nutritional Risk Patient : No : No Poor oral hygiene: No service: No Current occupational status: disabled Cognitive needs: Yes Hearing needs: No Vision needs: Yes Meds Allergies Allergy/AdvReac Type Severity Reaction Status Date / Time No Known Allergies Allergy Mild [place] Verified 10/10/23 10:01 Active Medications: Current Medications Acetaminophen (Acetaminophen 325 Mg Tablet) 650 mg PO Q6H PRN PRN Reason: Pain, Mild (Pain Scale 1-3) Atenolol (Atenolol 50 Mg Tablet) 50 mg PO DAILY [facility]; Protocol Last Admin: 12/27/23 08:48 Dose: 50 mg Benzonatate (Benzonatate 100 Mg Capsule) 100 mg PO TID PRN PRN Reason: Cough Clonazepam (Clonazepam 0.5 Mg Tablet) 0.5 mg PO BID [facility] Last Admin: 12/27/23 08:49 Dose: 0.5 mg Clonidine HCl (Clonidine Hcl 0.1 Mg Tablet) 0.1 mg PO DAILY [facility]; Protocol Last Admin: 12/27/23 08:48 Dose: 0.1 mg Docusate Sodium (Docusate Sodium 100 Mg Capsule) 100 mg PO DAILY PRN PRN Reason: Constipation Enoxaparin Sodium (Enoxaparin Sodium 40 Mg/0.4 Ml Syringe) 40 mg SUBCUT Q24H [facility] Last Admin: 12/26/23 19:59 Dose: 40 mg Ceftriaxone Sodium 1 gm/ (Sodium Chloride) 50 mls @ 100 mls/hr IV Q24H [facility] Last Infusion: 12/26/23 22:30 Dose: Infused Azithromycin 500 mg/ Sodium (Chloride) 250 mls @ 125 mls/hr IV Q24H [facility] Last Infusion: 12/26/23 22:25 Dose: Infused Sodium Chloride (Ns) 1,000 mls @ 100 mls/hr IVCONT .Q10H [facility] Stop: 12/28/23 04:44 Last Admin: 12/27/23 08:49 Dose: 100 mls/hr Levothyroxine Sodium (Levothyroxine Sodium 112 Mcg Tablet) 112 mcg PO DAILY@0600 [facility] Last Admin: 12/27/23 05:11 Dose: 112 mcg Nicotine (Nicotine 21 Mg Patch.Td24) 21 mg TRANSDERMA DAILY [facility] Last Admin: 12/27/23 08:48 Dose: 21 mg Ondansetron HCl (Ondansetron Hcl 4 Mg/2 Ml Vial) 4 mg IVPUSH Q8H PRN PRN Reason: Nausea and Vomiting Prazosin HCl (Prazosin Hcl 1 Mg Capsule) 1 mg PO BEDTIME [facility]; Protocol Last Admin: 12/26/23 21:14 Dose: 1 mg Risperidone (Risperidone 1 Mg Tablet) 1 mg PO DAILY [facility] Last Admin: 12/27/23 08:48 Dose: 1 mg Sodium Chloride (0.9 % Sodium Chloride Flush 3 Ml Syringe) 3 ml IVFLUSH QSHIFT [facility] Last Admin: 12/27/23 08:49 Dose: 3 ml Venlafaxine HCl (Venlafaxine Hcl Er 150 Mg Cap.Er.24h) 150 mg PO DAILY [facility] Last Admin: 12/27/23 11:13 Dose: 150 mg Home Medications Medication Instructions Recorded Confirmed Last Taken Type prazosin 1 mg capsule 1 mg PO BEDTIME 10/10/23 12/26/23 12/25/23 History venlafaxine 150 mg 150 mg PO DAILY 10/10/23 12/26/23 12/26/23 History capsule,extended release 24 hr clonazepam 0.5 mg tablet 0.5 mg PO BID 12/26/23 12/26/23 12/26/23 History risperidone 1 mg tablet 1 mg PO DAILY 12/26/23 12/26/23 12/26/23 History Physical Exam 2 Vital Signs: Vital Signs: Last Vital Signs Temp 99.0 F 12/27/23 11:11 Pulse 86 12/27/23 11:11 Resp 19 12/27/23 11:11 BP 143/67 H 12/27/23 11:11 Pulse Ox 98 12/27/23 11:11 O2 Del Method Nasal Cannula 12/27/23 11:11 O2 Flow Rate 2 12/27/23 03:14 BMI result Body Mass Index 36.2 GENERAL APPEARANCE: in no acute distress, pleasant. On supplemental oxygen. NECK: no carotid bruit, no jugular venous distention. SKIN: no suspicious lesions, warm and dry. HEART: no murmurs, regular rate and rhythm. LUNGS: clear to auscultation bilaterally. ABDOMEN: soft, nontender. EXTREMITIES: no edema. PERIPHERAL PULSES: equal. NEUROLOGIC: No gross deficits, AAO X 3 Objective Labs and Meds 12/27/23 06:38 12/27/23 06:38 Lab results: Laboratory Results - last 24 hr 12/26/23 12/26/23 12/26/23 12:29 13:31 13:32 WBC 12.4 H RBC 4.78 Hgb 13.4 Hct 40.2 MCV 84.1 MCH 28.0 MCHC 33.3 RDW 14.4 Plt Count 253 MPV 10.1 Immature Gran % (Auto) 0.5 H Neut % (Auto) 79.1 H Lymph % (Auto) 8.[address] [place] % (Auto) 11.4 H Eos % (Auto) 0.0 Baso % (Auto) 0.2 Lymph # (Auto) 1.[address] [place] # (Auto) 1.4 H Eos # (Auto) 0.0 Baso # (Auto) 0.0 Abs Immat Gran (auto) 0.06 H Absolute Neuts (auto) 9.8 H Absolute Nucleated RBC 0.000 Nucleated RBC % (auto) 0.0 Sodium 137 Potassium 3.4 Chloride 105 Carbon Dioxide 18 L Anion Gap 17 BUN 19 H Creatinine 0.82 Estim Creat Clear Calc 64.9 Estimated GFR > 60 Random Glucose 91 Lactic Acid 1.7 Calcium 9.6 Magnesium 2.6 Total Bilirubin 0.4 Direct Bilirubin 0.2 AST 177 H ALT 42 H Alkaline Phosphatase 94 Ammonia 33 Total Creatine Kinase 9953 H Troponin I High Sens Total Protein 8.6 H Albumin 3.9 Triglycerides Cholesterol LDL Cholesterol, Calc HDL Cholesterol TSH 0.16 L Free T4 1.16 Urine Color Urine Appearance Urine pH Ur Specific [place] Urine Protein Urine Glucose (UA) Urine Ketones Urine Blood Urine Nitrite Ur Leukocyte Esterase Urine RBC Urine WBC Ur Squamous Epith Cells Urine Bacteria Hyaline Casts Urine Opiates Screen Urine Fentanyl Screen Ur Barbiturates Screen Ur Phencyclidine Scrn Ur Amphetamines Screen U Benzodiazepines Scrn Urine Cocaine Screen U Marijuana (THC) Screen 12/26/23 12/26/23 12/26/23 15:10 16:25 20:06 WBC RBC Hgb Hct MCV MCH MCHC RDW Plt Count MPV Immature Gran % (Auto) Neut % (Auto) Lymph % (Auto) [place] % (Auto) Eos % (Auto) Baso % (Auto) Lymph # (Auto) [place] # (Auto) Eos # (Auto) Baso # (Auto) Abs Immat Gran (auto) Absolute Neuts (auto) Absolute Nucleated RBC Nucleated RBC % (auto) Sodium Potassium Chloride Carbon Dioxide Anion Gap BUN Creatinine Estim Creat Clear Calc Estimated GFR Random Glucose Lactic Acid Calcium Magnesium Total Bilirubin Direct Bilirubin AST ALT Alkaline Phosphatase Ammonia Total Creatine Kinase Troponin I High Sens 228.2 H* 184.2 H* Total Protein Albumin Triglycerides Cholesterol LDL Cholesterol, Calc HDL Cholesterol TSH Free T4 Urine Color Yellow Urine Appearance Hazy Urine pH 5.5 Ur Specific [place] >= 1.030 H Urine Protein 100 (2+) H Urine Glucose (UA) Negative Urine Ketones 15 Urine Blood Large (3+) H Urine Nitrite Negative Ur Leukocyte Esterase Negative Urine RBC 0-2 Urine WBC 0-5 Ur Squamous Epith Cells 0-2 Urine Bacteria None Seen Hyaline Casts 3-5 Urine Opiates Screen Not Detected Urine Fentanyl Screen Not Detected Ur Barbiturates Screen Not Detected Ur Phencyclidine Scrn Not Detected Ur Amphetamines Screen Not Detected U Benzodiazepines Scrn Not Detected Urine Cocaine Screen Not Detected U Marijuana (THC) Screen Not Detected 12/27/23 06:38 WBC 7.7 RBC 4.41 Hgb 12.7 Hct 37.9 MCV 85.9 MCH 28.8 MCHC 33.5 RDW 14.8 Plt Count 222 MPV 11.1 Immature Gran % (Auto) Neut % (Auto) Lymph % (Auto) [place] % (Auto) Eos % (Auto) Baso % (Auto) Lymph # (Auto) [place] # (Auto) Eos # (Auto) Baso # (Auto) Abs Immat Gran (auto) Absolute Neuts (auto) Absolute Nucleated RBC 0.000 Nucleated RBC % (auto) 0.0 Sodium 140 Potassium 3.1 L Chloride 109 H Carbon Dioxide 21 L Anion Gap 13 BUN 11 Creatinine 0.67 Estim Creat Clear Calc 79.4 Estimated GFR > 60 Random Glucose 98 Lactic Acid Calcium 8.5 D Magnesium Total Bilirubin 0.4 Direct Bilirubin 0.2 AST 211 H ALT 50 H Alkaline Phosphatase 80 Ammonia Total Creatine Kinase 8659 H Troponin I High Sens Total Protein 7.4 Albumin 3.3 L Triglycerides 168 H Cholesterol 207 H LDL Cholesterol, Calc 131 H HDL Cholesterol 43 TSH Free T4 Urine Color Urine Appearance Urine pH Ur Specific [place] Urine Protein Urine Glucose (UA) Urine Ketones Urine Blood Urine Nitrite Ur Leukocyte Esterase Urine RBC Urine WBC Ur Squamous Epith Cells Urine Bacteria Hyaline Casts Urine Opiates Screen Urine Fentanyl Screen Ur Barbiturates Screen Ur Phencyclidine Scrn Ur Amphetamines Screen U Benzodiazepines Scrn Urine Cocaine Screen U Marijuana (THC) Screen Imaging Radiologist's impression: Impressions Cervical Spine CT 12/26/23 14:31 IMPRESSION: * No intracranial hemorrhage or other acute intracranial pathology. * No fracture or malalignment in the cervical spine. * Mucosal thickening/secretions of left maxillary and sphenoid sinuses. Query if patient has any clinical symptoms of sinusitis. Head CT 12/26/23 14:31 IMPRESSION: * No intracranial hemorrhage or other acute intracranial pathology. * No fracture or malalignment in the cervical spine. * Mucosal thickening/secretions of left maxillary and sphenoid sinuses. Query if patient has any clinical symptoms of sinusitis. Chest X-Ray 12/26/23 14:36 IMPRESSION: Right basilar atelectasis and/or pneumonia. Assessment and Plan (1) Elevated troponin: Status: Acute (2) Rhabdomyolysis: Qualifiers: Rhabdomyolysis type: non-traumatic Qualified Code(s): M62.82 - Rhabdomyolysis Status: Acute Plan 68-year-old lady with fall out of her bed and rhabdomyolysis. She has been diagnosed with aspiration pneumonia and is on antibiotics. We have been involved for low level troponin elevation. She has no chest discomfort or significant shortness of breath. EKG is not showing any dynamic ischemic changes. With rhabdomyolysis mild elevation of troponin is possible. Clinically not ACS. No indication for heparin. Monitor potassium closely because hypokalemia can trigger rhabdomyolysis to and potassium should be repleted. Thank you for allowing me to participate in the care of your patient. Please feel free to contact me if you have any questions. Procedures Date of Service Date of Service: 12/27/23
--- NOTE | 2023-12-27 13:20 | P.PNIM_ITS ---
Subjective Subjective Date of Service: 12/27/23 Interval History: Being followed for fall/rhabdo sepsis and elevated troponin Feeling better this morning,, unable to fully recall what happened but found herself on the floor, not aware how long she was on the floor but denies preceding symptoms of lightheadedness, dizziness, chest pain or palpitation, is compliant with all home medication, denies cough, no shortness of breath, no fevers, chills. Review of Systems All other system reviewed and negative. Physical Exam 2 Vital Signs: Vital Signs: Last Vital Signs Temp 99.0 F 12/27/23 11:11 Pulse 86 12/27/23 11:11 Resp 19 12/27/23 11:11 BP 143/67 H 12/27/23 11:11 Pulse Ox 98 12/27/23 11:11 O2 Del Method Nasal Cannula 12/27/23 11:11 O2 Flow Rate 2 12/27/23 03:14 BMI result Body Mass Index 36.2 Const: Other: General awake alert x3, resting comfortably in no acute distress. Anicteric sclera Neck supple no JVD. CVS regular rate rhythm, Respiratory lungs clear to auscultation, no respiratory distress, no wheeze, no rhonchi. Gastrointestinal abdomen soft, non tender, bowel sounds audible, no guarding , no rigidity. Extremities no edema. Neuro non focal , speech clear, Left shoulder decreased range of motion Skin no rash Psych appropriate affect Objective Data Active Medications Acetaminophen (Acetaminophen 325 Mg Tablet) 650 mg PO Q6H PRN PRN Reason: Pain, Mild (Pain Scale 1-3) Atenolol (Atenolol 50 Mg Tablet) 50 mg PO DAILY [facility]; Protocol Last Admin: 12/27/23 08:48 Dose: 50 mg Documented By: SUSAN Benzonatate (Benzonatate 100 Mg Capsule) 100 mg PO TID PRN PRN Reason: Cough Clonazepam (Clonazepam 0.5 Mg Tablet) 0.5 mg PO BID [facility] Last Admin: 12/27/23 08:49 Dose: 0.5 mg Documented By: SUSAN Clonidine HCl (Clonidine Hcl 0.1 Mg Tablet) 0.1 mg PO DAILY [facility]; Protocol Last Admin: 12/27/23 08:48 Dose: 0.1 mg Documented By: SUSAN Docusate Sodium (Docusate Sodium 100 Mg Capsule) 100 mg PO DAILY PRN PRN Reason: Constipation Enoxaparin Sodium (Enoxaparin Sodium 40 Mg/0.4 Ml Syringe) 40 mg SUBCUT Q24H [facility] Last Admin: 12/26/23 19:59 Dose: 40 mg Documented By: NATALIYA Ceftriaxone Sodium 1 gm/ (Sodium Chloride) 50 mls @ 100 mls/hr IV Q24H [facility] Last Infusion: 12/26/23 22:30 Dose: Infused Documented By: MELISSA Azithromycin 500 mg/ Sodium (Chloride) 250 mls @ 125 mls/hr IV Q24H [facility] Last Infusion: 12/26/23 22:25 Dose: Infused Documented By: MELISSA Sodium Chloride (Ns) 1,000 mls @ 100 mls/hr IVCONT .Q10H [facility] Stop: 12/28/23 04:44 Last Admin: 12/27/23 08:49 Dose: 100 mls/hr Documented By: SUSAN Levothyroxine Sodium (Levothyroxine Sodium 112 Mcg Tablet) 112 mcg PO DAILY@0600 [facility] Last Admin: 12/27/23 05:11 Dose: 112 mcg Documented By: RAMYA Nicotine (Nicotine 21 Mg Patch.Td24) 21 mg TRANSDERMA DAILY [facility] Last Admin: 12/27/23 08:48 Dose: 21 mg Documented By: SUSAN Ondansetron HCl (Ondansetron Hcl 4 Mg/2 Ml Vial) 4 mg IVPUSH Q8H PRN PRN Reason: Nausea and Vomiting Prazosin HCl (Prazosin Hcl 1 Mg Capsule) 1 mg PO BEDTIME [facility]; Protocol Last Admin: 12/26/23 21:14 Dose: 1 mg Documented By: MELISSA Risperidone (Risperidone 1 Mg Tablet) 1 mg PO DAILY [facility] Last Admin: 12/27/23 08:48 Dose: 1 mg Documented By: SUSAN Sodium Chloride (0.9 % Sodium Chloride Flush 3 Ml Syringe) 3 ml IVFLUSH QSHIFT [facility] Last Admin: 12/27/23 08:49 Dose: 3 ml Documented By: SUSAN Venlafaxine HCl (Venlafaxine Hcl Er 150 Mg Cap.Er.24h) 150 mg PO DAILY [facility] Last Admin: 12/27/23 11:13 Dose: 150 mg Documented By: SUSAN Labs 12/27/23 06:38 01/26/24 06:38 Labs: Laboratory Results - last 24 hr 12/26/23 12/26/23 12/26/23 13:31 13:32 15:10 MCV MCH MCHC RDW Plt Count MPV Absolute Nucleated RBC Nucleated RBC % (auto) Anion Gap 17 Estim Creat Clear Calc 64.9 Estimated GFR > 60 Random Glucose 91 Lactic Acid 1.7 Calcium 9.6 Magnesium 2.6 Total Bilirubin 0.4 Direct Bilirubin 0.2 AST 177 H ALT 42 H Alkaline Phosphatase 94 Ammonia 33 Total Creatine Kinase 9953 H Total Protein 8.6 H Albumin 3.9 Triglycerides Cholesterol LDL Cholesterol, Calc HDL Cholesterol TSH 0.16 L Free T4 1.16 Urine Color Yellow Urine Appearance Hazy Urine pH 5.5 Ur Specific [place] >= 1.030 H Urine Protein 100 (2+) H Urine Glucose (UA) Negative Urine Ketones 15 Urine Blood Large (3+) H Urine Nitrite Negative Ur Leukocyte Esterase Negative Urine RBC 0-2 Urine WBC 0-5 Ur Squamous Epith Cells 0-2 Urine Bacteria None Seen Hyaline Casts 3-5 Urine Opiates Screen Not Detected Urine Fentanyl Screen Not Detected Ur Barbiturates Screen Not Detected Ur Phencyclidine Scrn Not Detected Ur Amphetamines Screen Not Detected U Benzodiazepines Scrn Not Detected Urine Cocaine Screen Not Detected U Marijuana (THC) Screen Not Detected 12/27/23 06:38 MCV 85.9 MCH 28.8 MCHC 33.5 RDW 14.8 Plt Count 222 MPV 11.1 Absolute Nucleated RBC 0.000 Nucleated RBC % (auto) 0.0 Anion Gap 13 Estim Creat Clear Calc 79.4 Estimated GFR > 60 Random Glucose 98 Lactic Acid Calcium 8.5 D Magnesium Total Bilirubin 0.4 Direct Bilirubin 0.2 AST 211 H ALT 50 H Alkaline Phosphatase 80 Ammonia Total Creatine Kinase 8659 H Total Protein 7.4 Albumin 3.3 L Triglycerides 168 H Cholesterol 207 H LDL Cholesterol, Calc 131 H HDL Cholesterol 43 TSH Free T4 Urine Color Urine Appearance Urine pH Ur Specific [place] Urine Protein Urine Glucose (UA) Urine Ketones Urine Blood Urine Nitrite Ur Leukocyte Esterase Urine RBC Urine WBC Ur Squamous Epith Cells Urine Bacteria Hyaline Casts Urine Opiates Screen Urine Fentanyl Screen Ur Barbiturates Screen Ur Phencyclidine Scrn Ur Amphetamines Screen U Benzodiazepines Scrn Urine Cocaine Screen U Marijuana (THC) Screen Assessment and Plan (1) Elevated troponin: Status: Acute (2) Aspiration pneumonia: Status: Acute (3) Elevated liver enzymes: Status: Acute (4) Rhabdomyolysis: Status: Acute Plan 68-year-old female with multiple medical issues presented due to a fall with no preceding symptoms of lightheadedness or dizziness noted to have elevated WBC tachycardia question pneumonia and elevated troponin, CPK will admit to telemetry unit with diagnosis of sepsis due to pneumonia and further workup for elevated troponin and abnormal EKG. Sepsis due to pneumonia question aspiration Offers no complaint of shortness of breath, no fevers, no chills Tachycardia and leukocytosis resolved. Continue IV ceftriaxone and azithromycin started on December 26 Continue cough medication, analgesics no evidence of hypoxia Elevated troponin 228 repeat 184, with no chest pain, likely due to rhabdo, EKG with nonspecific ST changes, echocardiogram pending Seen by cardiology they feel mild elevation of troponin is likely due to rhabdomyolysis and not due to acute coronary syndrome. Acute hypokalemia will replete and follow labs. Elevated CPK likely due to fall , normal renal function, continue IV fluids and follow CPK. Obtain PT eval Elevated LFTs, no abdominal pain follow lfts, likely due to rhabdo. Obesity class 2 recommend low-calorie diet. Tobacco use disorder on nicotine patch 21 mg daily, counseling done. Mood disorder on multiple psychiatric medication including risperidone, venlafaxine, prazosin and clonazepam Hypertension, blood pressure improved, continue atenolol and resume clonidine 0.1 mg daily, home dose of clonidine 0.1 mg b.i.d. follow BP closely DVT prophylaxis Lovenox subQ Code status full code In my clinical judgment patient need continued inpatient hospitalization for management of sepsis with pneumonia requiring IV antibiotic and IV fluid for rhabdomyolysis Quality Stroke Does the patient have a stroke diagnosis?: No VTE Prior VTE?: No VTE Risk Level:: Medical - moderate - high VTE Device Contraindication: Treatment Not Indicated VTE Drug Contraindication: N/A - Med Ordered
[2023-12-27] MEDS: Potassium Chloride ER 20 MEQ TAB.ER.PRT PO (14:03)
[2023-12-27] MEDS: Azithromycin 500 MG in 0.9 % Sodium Chloride 250 ML 125 MG IV (18:12)
[2023-12-27] MEDS: Enoxaparin Sodium 40 MG/0.4 ML SYRINGE SUBCUT (18:12)
[2023-12-27] MEDS: Prazosin HCL 1 MG CAPSULE PO (21:01)
[2023-12-27] MEDS: cefTRIAXone sodium 1 GM in 0.9 % Sodium Chloride 50 ML IV (21:03)
[2023-12-28] VITALS (7 sets, daily range): BP systolic 119–146; BP diastolic 57–78; PULSE 76–86; RESP 16–20; TEMP 36.3–37.4; O2SAT 94–97
[2023-12-28] MEDS: Levothyroxine Sodium 112 MCG TABLET PO (05:16)
[2023-12-28 07:38] LABS: Anion Gap 11 (12-20); Blood Urea Nitrogen 6 mg/dL (9-16); Calcium 8.1 mg/dL (8.4-10.2); Carbon Dioxide 21 mmol/L (22-29); Chloride 109 mmol/L (96-108); Creatinine Clr Calc Pharmacy 78.2; Estimated Glomerular Filt Rate > 60; Glucose Random 88 mg/dL (60-115); Potassium 3.2 mmol/L (3.3-5.1); Sodium 138 mmol/L (135-145)
[2023-12-28] MEDS: atenoloL 50 MG TABLET PO (08:26)
[2023-12-28] MEDS: Benzonatate 100 MG CAPSULE PO ×2 (08:26→19:53)
[2023-12-28] MEDS: Nicotine 21 MG PATCH.TD24 TRANSDERMA (08:26)
[2023-12-28] MEDS: risperiDONE 1 MG TABLET PO (08:26)
[2023-12-28] MEDS: Venlafaxine HCl ER 150 MG CAP.ER.24H PO (08:26)
[2023-12-28] MEDS: clonazePAM 0.5 MG TABLET PO ×2 (08:27→19:57)
[2023-12-28] MEDS: 0.9 % Sodium Chloride Flush 3 ML SYRINGE IVFLUSH ×2 (08:27→19:59)
[2023-12-28] MEDS: cloNIDine HCL 0.1 MG TABLET PO (08:27)
[2023-12-28] MEDS: Potassium Chloride ER 20 MEQ TAB.ER.PRT 60 MEQ PO (08:36)
[2023-12-28] MEDS: 0.9 % Sodium Chloride 1,000 ML 100 ML IVCONT ×2 (08:36→18:27)
--- NOTE | 2023-12-28 12:45 | HO.PM.IMPN ---
Subjective Subjective Date of Service: 12/28/23 Interval History: Feeling better this morning, no shortness of breath, mild cough, no other acute issues overnight tolerating diet with no nausea, no vomiting, or abdominal pain. Review of Systems All other system reviewed and negative. Physical Exam Vital Signs: Vital Signs: Last Vital Signs Temp 97.4 F 12/28/23 11:15 Pulse 78 12/28/23 11:15 Resp 20 12/28/23 11:15 BP 119/67 12/28/23 11:15 Pulse Ox 97 12/28/23 11:15 O2 Del Method Nasal Cannula 12/28/23 11:15 O2 Flow Rate 1 12/28/23 11:15 BMI result Body Mass Index 36.2 Const: Other: General awake alert x3, resting comfortably in no acute distress. Anicteric sclera Neck supple no JVD. CVS regular rate rhythm, Respiratory lungs clear to auscultation, no respiratory distress, no wheeze, no rhonchi. Gastrointestinal abdomen soft, non tender, bowel sounds audible, no guarding , no rigidity. Extremities no edema. Neuro non focal , speech clear, Left shoulder decreased range of motion Skin no rash Psych appropriate affect Objective Data Active Medications Acetaminophen (Acetaminophen 325 Mg Tablet) 650 mg PO Q6H PRN PRN Reason: Pain, Mild (Pain Scale 1-3) Atenolol (Atenolol 50 Mg Tablet) 50 mg PO DAILY [facility]; Protocol Last Admin: 12/28/23 08:26 Dose: 50 mg Documented By: SUSAN Benzonatate (Benzonatate 100 Mg Capsule) 100 mg PO TID PRN PRN Reason: Cough Last Admin: 12/28/23 08:26 Dose: 100 mg Documented By: SUSAN Clonazepam (Clonazepam 0.5 Mg Tablet) 0.5 mg PO BID [facility] Last Admin: 12/28/23 08:27 Dose: 0.5 mg Documented By: SUSAN Clonidine HCl (Clonidine Hcl 0.1 Mg Tablet) 0.1 mg PO DAILY [facility]; Protocol Last Admin: 12/28/23 08:27 Dose: 0.1 mg Documented By: SUSAN Docusate Sodium (Docusate Sodium 100 Mg Capsule) 100 mg PO DAILY PRN PRN Reason: Constipation Enoxaparin Sodium (Enoxaparin Sodium 40 Mg/0.4 Ml Syringe) 40 mg SUBCUT Q24H [facility] Last Admin: 12/27/23 18:12 Dose: 40 mg Documented By: SUSAN Ceftriaxone Sodium 1 gm/ (Sodium Chloride) 50 mls @ 100 mls/hr IV Q24H [facility] Last Infusion: 12/27/23 22:49 Dose: Infused Documented By: IRENA Azithromycin 500 mg/ Sodium (Chloride) 250 mls @ 125 mls/hr IV Q24H [facility] Last Infusion: 12/27/23 21:17 Dose: Infused Documented By: IRENA Sodium Chloride (Ns) 1,000 mls @ 100 mls/hr IVCONT .Q10H [facility] Last Admin: 12/28/23 08:36 Dose: 100 mls/hr Documented By: SUSAN Levothyroxine Sodium (Levothyroxine Sodium 112 Mcg Tablet) 112 mcg PO DAILY@0600 [facility] Last Admin: 12/28/23 05:16 Dose: 112 mcg Documented By: IRENA Nicotine (Nicotine 21 Mg Patch.Td24) 21 mg TRANSDERMA DAILY [facility] Last Admin: 12/28/23 08:26 Dose: 21 mg Documented By: SUSAN Ondansetron HCl (Ondansetron Hcl 4 Mg/2 Ml Vial) 4 mg IVPUSH Q8H PRN PRN Reason: Nausea and Vomiting Prazosin HCl (Prazosin Hcl 1 Mg Capsule) 1 mg PO BEDTIME [facility]; Protocol Last Admin: 12/27/23 21:01 Dose: 1 mg Documented By: IRENA Risperidone (Risperidone 1 Mg Tablet) 1 mg PO DAILY [facility] Last Admin: 12/28/23 08:26 Dose: 1 mg Documented By: SUSAN Sodium Chloride (0.9 % Sodium Chloride Flush 3 Ml Syringe) 3 ml IVFLUSH QSHIFT [facility] Last Admin: 12/28/23 08:27 Dose: 3 ml Documented By: SUSAN Venlafaxine HCl (Venlafaxine Hcl Er 150 Mg Cap.Er.24h) 150 mg PO DAILY [facility] Last Admin: 12/28/23 08:26 Dose: 150 mg Documented By: SUSAN Labs 12/27/23 06:38 12/28/23 06:17 Labs: Laboratory Results - last 24 hr 12/28/23 06:17 Hold Purple Top SEE NOTE Anion Gap 11 L Estim Creat Clear Calc 78.2 Estimated GFR > 60 Random Glucose 88 Calcium 8.1 L Total Creatine Kinase 4159 H Microbiology Microbiology Results: Microbiology 12/26/23 15:10 Blood Culture - Preliminary Blood - Venous No growth after 24 hours. 12/26/23 13:31 Blood Culture - Preliminary Blood - Venous No growth after 24 hours. Assessment and Plan (1) Elevated troponin: Status: Acute (2) Aspiration pneumonia: Status: Acute (3) Elevated liver enzymes: Status: Acute (4) Rhabdomyolysis: Status: Acute Plan 68-year-old female with multiple medical issues presented due to a fall with no preceding symptoms of lightheadedness or dizziness noted to have elevated WBC tachycardia question pneumonia and elevated troponin, CPK will admit to telemetry unit with diagnosis of sepsis due to pneumonia and further workup for elevated troponin and abnormal EKG. Sepsis due to pneumonia question aspiration Offers no complaint of shortness of breath, no fevers, no chills Tachycardia and leukocytosis resolved. Continue IV ceftriaxone and azithromycin started on December 26 Continue cough medication, analgesics no evidence of hypoxia Acute rhabdomyolysis due to being on floor for undetermined time continue IV fluid, CPK trending follow CPK and BMP Seen by Physical therapy they recommend home with PT Elevated troponin 228 repeat 184, with no chest pain, likely due to rhabdo, EKG with nonspecific ST changes, echocardiogram pending Seen by cardiology they feel mild elevation of troponin is likely due to rhabdomyolysis and not due to acute coronary syndrome. Acute hypokalemia will replete and follow labs. Elevated LFTs, no abdominal pain follow lfts, likely due to rhabdo. Obesity class 2 recommend low-calorie diet. Tobacco use disorder on nicotine patch 21 mg daily, counseling done. Mood disorder on multiple psychiatric medication including risperidone, venlafaxine, prazosin and clonazepam Hypertension, blood pressure improved, continue atenolol and clonidine 0.1 mg daily, home dose of clonidine 0.1 mg b.i.d. follow BP closely. DVT prophylaxis Lovenox subQ Code status full code In my clinical judgment patient need continued inpatient hospitalization for management of sepsis with pneumonia requiring IV antibiotic and IV fluid for rhabdomyolysis Quality Stroke Does the patient have a stroke diagnosis?: No VTE Prior VTE?: No VTE Risk Level:: Medical - moderate - high VTE Device Contraindication: Treatment Not Indicated VTE Drug Contraindication: N/A - Med Ordered
[2023-12-28] MEDS: Enoxaparin Sodium 40 MG/0.4 ML SYRINGE SUBCUT (18:09)
[2023-12-28] MEDS: Azithromycin 500 MG in 0.9 % Sodium Chloride 250 ML 125 MG IV (18:09)
[2023-12-28] MEDS: Prazosin HCL 1 MG CAPSULE PO (19:57)
[2023-12-29] VITALS (8 sets, daily range): BP systolic 129–160; BP diastolic 60–103; PULSE 65–89; RESP 18–20; TEMP 35.8–37.1; O2SAT 94–99
[2023-12-29] MEDS: cefTRIAXone sodium 1 GM in 0.9 % Sodium Chloride 50 ML IV ×2 (00:04→23:03)
[2023-12-29] MEDS: Levothyroxine Sodium 112 MCG TABLET PO (05:35)
[2023-12-29] MEDS: 0.9 % Sodium Chloride 1,000 ML 100 ML IVCONT ×2 (05:39→18:30)
[2023-12-29 07:48] LABS: Anion Gap 13 (12-20); Blood Urea Nitrogen 6 mg/dL (9-16); Calcium 8.4 mg/dL (8.4-10.2); Carbon Dioxide 22 mmol/L (22-29); Chloride 109 mmol/L (96-108); Creatinine Clr Calc Pharmacy 79.4; Estimated Glomerular Filt Rate > 60; Glucose Random 92 mg/dL (60-115); Potassium 3.5 mmol/L (3.3-5.1); Sodium 140 mmol/L (135-145)
[2023-12-29] MEDS: Nicotine 21 MG PATCH.TD24 TRANSDERMA (09:32)
[2023-12-29] MEDS: Venlafaxine HCl ER 150 MG CAP.ER.24H PO (09:32)
[2023-12-29] MEDS: risperiDONE 1 MG TABLET PO (09:32)
[2023-12-29] MEDS: atenoloL 50 MG TABLET PO (09:33)
[2023-12-29] MEDS: Benzonatate 100 MG CAPSULE PO (09:33)
[2023-12-29] MEDS: cloNIDine HCL 0.1 MG TABLET PO (09:33)
[2023-12-29] MEDS: clonazePAM 0.5 MG TABLET PO ×2 (09:33→21:59)
[2023-12-29] MEDS: 0.9 % Sodium Chloride Flush 3 ML SYRINGE IVFLUSH ×2 (09:33→21:59)
--- NOTE | 2023-12-29 13:21 | P.PNIM_ITS ---
Subjective Subjective Date of Service: 12/29/23 Interval History: Continues to improve slowly. Still with O2 requirement Review of Systems Denies chest pain Admit shortness of breath with movement Denies nausea vomiting diarrhea Denies fever chills Physical Exam 2 Vital Signs: Vital Signs: Last Vital Signs Temp 96.8 F 12/29/23 11:20 Pulse 65 12/29/23 11:20 Resp 18 12/29/23 11:20 BP 129/70 12/29/23 11:20 Pulse Ox 99 12/29/23 11:20 O2 Del Method Nasal Cannula 12/29/23 11:20 O2 Flow Rate 1 12/29/23 11:20 Oxygen Flow Rate 2 12/28/23 08:00 BMI result Body Mass Index 36.2 Const: Other: Awake alert no acute issues overnight Resp: Other: Clear to auscultation bilaterally no rales rhonchi or wheezes Cardio: Other: No S4; positive S1-S2; no S3 murmurs rubs or gallops GI: Other: Soft nontender nondistended normoactive bowel sounds Extrem: Other: No edema bilaterally Objective Data Active Medications Acetaminophen (Acetaminophen 325 Mg Tablet) 650 mg PO Q6H PRN PRN Reason: Pain, Mild (Pain Scale 1-3) Atenolol (Atenolol 50 Mg Tablet) 50 mg PO DAILY [facility]; Protocol Last Admin: 12/29/23 09:33 Dose: 50 mg Documented By: SUSAN Benzonatate (Benzonatate 100 Mg Capsule) 100 mg PO TID PRN PRN Reason: Cough Last Admin: 12/29/23 09:33 Dose: 100 mg Documented By: SUSAN Comments: Barcode half ripped off Clonazepam (Clonazepam 0.5 Mg Tablet) 0.5 mg PO BID [facility] Last Admin: 12/29/23 09:33 Dose: 0.5 mg Documented By: SUSAN Clonidine HCl (Clonidine Hcl 0.1 Mg Tablet) 0.1 mg PO DAILY [facility]; Protocol Last Admin: 12/29/23 09:33 Dose: 0.1 mg Documented By: SUSAN Docusate Sodium (Docusate Sodium 100 Mg Capsule) 100 mg PO DAILY PRN PRN Reason: Constipation Enoxaparin Sodium (Enoxaparin Sodium 40 Mg/0.4 Ml Syringe) 40 mg SUBCUT Q24H [facility] Last Admin: 12/28/23 18:09 Dose: 40 mg Documented By: SUSAN Ceftriaxone Sodium 1 gm/ (Sodium Chloride) 50 mls @ 100 mls/hr IV Q24H [facility] Last Infusion: 12/29/23 00:34 Dose: Infused Documented By: ROVERTO Azithromycin 500 mg/ Sodium (Chloride) 250 mls @ 125 mls/hr IV Q24H [facility] Last Infusion: 12/28/23 20:09 Dose: Infused Documented By: ROVERTO Sodium Chloride (Ns) 1,000 mls @ 100 mls/hr IVCONT .Q10H [facility] Last Admin: 12/29/23 05:39 Dose: 100 mls/hr Documented By: ROVERTO Levothyroxine Sodium (Levothyroxine Sodium 112 Mcg Tablet) 112 mcg PO DAILY@0600 [facility] Last Admin: 12/29/23 05:35 Dose: 112 mcg Documented By: ROVERTO Nicotine (Nicotine 21 Mg Patch.Td24) 21 mg TRANSDERMA DAILY [facility] Last Admin: 12/29/23 09:32 Dose: 21 mg Documented By: SUSAN Ondansetron HCl (Ondansetron Hcl 4 Mg/2 Ml Vial) 4 mg IVPUSH Q8H PRN PRN Reason: Nausea and Vomiting Prazosin HCl (Prazosin Hcl 1 Mg Capsule) 1 mg PO BEDTIME [facility]; Protocol Last Admin: 12/28/23 19:57 Dose: 1 mg Documented By: ROVERTO Risperidone (Risperidone 1 Mg Tablet) 1 mg PO DAILY [facility] Last Admin: 12/29/23 09:32 Dose: 1 mg Documented By: SUSAN Sodium Chloride (0.9 % Sodium Chloride Flush 3 Ml Syringe) [facility] Last Admin: 12/29/23 09:33 Dose: 3 ml Documented By: SUSAN Venlafaxine HCl (Venlafaxine Hcl Er 150 Mg Cap.Er.24h) 150 mg PO DAILY [facility] Last Admin: 12/29/23 09:32 Dose: 150 mg Documented By: SUSAN Labs 12/27/23 06:38 12/29/23 06:33 Labs: Laboratory Results - last 24 hr 12/29/23 06:33 Anion Gap 13 Estim Creat Clear Calc 79.4 Estimated GFR > 60 Random Glucose 92 Calcium 8.4 Total Creatine Kinase 2144 H Microbiology Microbiology Results: Microbiology 12/26/23 15:10 Blood Culture - Preliminary Blood - Venous No growth after 48 hours. 12/26/23 13:31 Blood Culture - Preliminary Blood - Venous No growth after 48 hours. Assessment and Plan (1) Aspiration pneumonia: Status: Acute (2) Rhabdomyolysis: Status: Acute Plan 68-year-old female with multiple medical issues presented due to a fall with no preceding symptoms of lightheadedness or dizziness noted to have elevated WBC tachycardia question pneumonia and elevated troponin, CPK will admit to telemetry unit with diagnosis of sepsis due to pneumonia and further workup for elevated troponin and abnormal EKG. 1.Sepsis due to pneumonia question aspiration -IV ceftriaxone/azithromycin (4) -titrate O2 to maintain sats greater than equal to 90% 2.Acute rhabdomyolysis -CKs responding well to volume -check CKs/renals/divalents daily 3.Hypertension -acceptable control on current therapies -adjust as indicated Lovenox Full code In my clinical judgment patient need continued inpatient hospitalization for management of sepsis with pneumonia requiring IV antibiotic and IV fluid for rhabdomyolysis Quality Stroke Does the patient have a stroke diagnosis?: No VTE Prior VTE?: No VTE Risk Level:: Medical - moderate - high VTE Device Contraindication: Treatment Not Indicated VTE Drug Contraindication: N/A - Med Ordered
[2023-12-29] MEDS: Azithromycin 500 MG in 0.9 % Sodium Chloride 250 ML 125 MG IV (18:30)
[2023-12-29] MEDS: Enoxaparin Sodium 40 MG/0.4 ML SYRINGE SUBCUT (18:31)
[2023-12-29] MEDS: Prazosin HCL 1 MG CAPSULE PO (21:59)
[2023-12-30] VITALS (7 sets, daily range): BP systolic 131–177; BP diastolic 69–84; PULSE 66–86; RESP 17–22; TEMP 36–36.6; O2SAT 92–97
[2023-12-30] MEDS: Levothyroxine Sodium 112 MCG TABLET PO (06:33)
[2023-12-30 07:12] LABS: MANUAL DIFF FLAG NO
[2023-12-30 07:38] LABS: Basophils Percent Auto 0.2 % (0-2); Eosinophils Absolute Auto 0.1 X10*3/uL (0.0-0.4); Eosinophils Percent Auto 2.2 % (0-4); Hematocrit 37.5 % (37.0-47.0); Hemoglobin 12.4 g/dl (12.0-16.0); Imm Gran Abs Auto 0.02 X10*3/uL (0.00-0.03); Imm Gran Pct Auto 0.4 % (0.0-0.4); Lymphocytes Absolute Auto 1.8 X10*3/uL (1.2-4.9); Lymphocytes Percent Auto 35.2 % (20-40); Mean Corpuscular HGB Conc 33.1 g/dl (31.0-35.0); Mean Corpuscular Hemoglobin 28.1 pg (27.0-33.0); Mean Platelet Volume 10.8 fL (9.4-12.3); Monocytes Absolute Auto 0.5 X10*3/uL (0.1-1.2); Monocytes Percent Auto 10.3 % (2-11); Neutrophils Absolute Auto 2.6 x10*3/uL (2.0-8.3); Neutrophils Percent Auto 51.7 % (45-73); Platelet Count 203 X10*3/uL (160-400); Red Blood Count 4.41 X10*6/uL (4.20-5.50); Red Cell Distribution Width 14.7 % (11.0-16.0); White Blood Count 5.1 X10*3/uL (4.8-10.8)
[2023-12-30 07:45] LABS: Alanine Aminotransferase 37 U/L (0-31); Alkaline Phosphatase 67 U/L (39-117); Anion Gap 11 (12-20); Aspartate Amino Transferase 67 U/L (5-31); Bilirubin Total 0.3 mg/dL (0.0-1.0); Blood Urea Nitrogen 8 mg/dL (9-16); Calcium 8.3 mg/dL (8.4-10.2); Carbon Dioxide 23 mmol/L (22-29); Chloride 109 mmol/L (96-108); Creatinine Clr Calc Pharmacy 84.4; Estimated Glomerular Filt Rate > 60; Glucose Fasting 92 mg/dL (60-99); Potassium 3.3 mmol/L (3.3-5.1); Sodium 140 mmol/L (135-145); Total Protein 6.8 g/dL (6.5-8.0)
[2023-12-30] MEDS: Venlafaxine HCl ER 150 MG CAP.ER.24H PO (08:30)
[2023-12-30] MEDS: cloNIDine HCL 0.1 MG TABLET PO (08:30)
[2023-12-30] MEDS: clonazePAM 0.5 MG TABLET PO ×2 (08:30→19:50)
[2023-12-30] MEDS: risperiDONE 1 MG TABLET PO (08:30)
[2023-12-30] MEDS: Nicotine 21 MG PATCH.TD24 TRANSDERMA (08:30)
[2023-12-30] MEDS: atenoloL 50 MG TABLET PO (08:30)
[2023-12-30] MEDS: 0.9 % Sodium Chloride 1,000 ML 100 ML IVCONT (08:30)
--- NOTE | 2023-12-30 08:39 | PC.NURSE ---
pt has very LROM to md EPHRAIM informed, ? scan
--- NOTE | 2023-12-30 12:34 | P.PNIM_ITS ---
Subjective Subjective Date of Service: 12/30/23 Interval History: Complains of left shoulder pain with minimal movement otherwise no acute issues Review of Systems Denies chest pain Admit shortness of breath with movement Denies nausea vomiting diarrhea Denies fever chills Physical Exam 2 Vital Signs: Vital Signs: Last Vital Signs Temp 97.5 F 12/30/23 11:12 Pulse 66 12/30/23 11:12 Resp 18 12/30/23 11:12 BP 131/75 12/30/23 11:12 Pulse Ox 97 12/30/23 11:12 O2 Del Method Nasal Cannula 12/30/23 11:12 O2 Flow Rate 2 12/30/23 11:12 Oxygen Flow Rate 2 12/28/23 08:00 BMI result Body Mass Index 36.2 Const: Other: Awake alert no acute issues overnight Resp: Other: Clear to auscultation bilaterally no rales rhonchi or wheezes Cardio: Other: No S4; positive S1-S2; no S3 murmurs rubs or gallops GI: Other: Soft nontender nondistended normoactive bowel sounds Extrem: Other: No edema bilaterally Objective Data Active Medications Acetaminophen (Acetaminophen 325 Mg Tablet) 650 mg PO Q6H PRN PRN Reason: Pain, Mild (Pain Scale 1-3) Atenolol (Atenolol 50 Mg Tablet) 50 mg PO DAILY [facility]; Protocol Last Admin: 12/30/23 08:30 Dose: 50 mg Documented By: MITALI Benzonatate (Benzonatate 100 Mg Capsule) 100 mg PO TID PRN PRN Reason: Cough Last Admin: 12/29/23 09:33 Dose: 100 mg Documented By: SUSAN Comments: Barcode half ripped off Clonazepam (Clonazepam 0.5 Mg Tablet) 0.5 mg PO BID [facility] Last Admin: 12/30/23 08:30 Dose: 0.5 mg Documented By: MITALI Clonidine HCl (Clonidine Hcl 0.1 Mg Tablet) 0.1 mg PO DAILY [facility]; Protocol Last Admin: 12/30/23 08:30 Dose: 0.1 mg Documented By: MITALI Docusate Sodium (Docusate Sodium 100 Mg Capsule) 100 mg PO DAILY PRN PRN Reason: Constipation Enoxaparin Sodium (Enoxaparin Sodium 40 Mg/0.4 Ml Syringe) 40 mg SUBCUT Q24H [facility] Last Admin: 12/29/23 18:31 Dose: 40 mg Documented By: SUSAN Ceftriaxone Sodium 1 gm/ (Sodium Chloride) 50 mls @ 100 mls/hr IV Q24H [facility] Last Infusion: 12/29/23 23:35 Dose: Infused Documented By: WILL Azithromycin 500 mg/ Sodium (Chloride) 250 mls @ 125 mls/hr IV Q24H [facility] Last Infusion: 12/29/23 22:00 Dose: Infused Documented By: WILL Levothyroxine Sodium (Levothyroxine Sodium 112 Mcg Tablet) 112 mcg PO DAILY@0600 [facility] Last Admin: 12/30/23 06:33 Dose: 112 mcg Documented By: WILL Nicotine (Nicotine 21 Mg Patch.Td24) 21 mg TRANSDERMA DAILY [facility] Last Admin: 12/30/23 08:30 Dose: 21 mg Documented By: MITALI Ondansetron HCl (Ondansetron Hcl 4 Mg/2 Ml Vial) 4 mg IVPUSH Q8H PRN PRN Reason: Nausea and Vomiting Prazosin HCl (Prazosin Hcl 1 Mg Capsule) 1 mg PO BEDTIME [facility]; Protocol Last Admin: 12/29/23 21:59 Dose: 1 mg Documented By: WILL Risperidone (Risperidone 1 Mg Tablet) 1 mg PO DAILY [facility] Last Admin: 12/30/23 08:30 Dose: 1 mg Documented By: MITALI Sodium Chloride (0.9 % Sodium Chloride Flush 3 Ml Syringe) 3 ml IVFLUSH QSHIFT [facility] Last Admin: 12/30/23 07:34 Dose: Not Given Documented By: MITALI Non-Admin Reason: See Note Venlafaxine HCl (Venlafaxine Hcl Er 150 Mg Cap.Er.24h) 150 mg PO DAILY [facility] Last Admin: 12/30/23 08:30 Dose: 150 mg Documented By: MITALI Labs 12/30/23 06:28 12/30/23 06:28 Labs: Laboratory Results - last 24 hr 12/30/23 06:28 MCV 85.0 MCH 28.1 MCHC 33.1 RDW 14.7 Plt Count 203 MPV 10.8 Immature Gran % (Auto) 0.4 Neut % (Auto) 51.7 Lymph % (Auto) 35.2 [place] % (Auto) 10.3 Eos % (Auto) 2.2 Baso % (Auto) 0.2 Lymph # (Auto) 1.8 [place] # (Auto) 0.5 Eos # (Auto) 0.1 Baso # (Auto) 0.0 Abs Immat Gran (auto) 0.02 Absolute Neuts (auto) 2.6 Absolute Nucleated RBC 0.000 Nucleated RBC % (auto) 0.0 Anion Gap 11 L Estim Creat Clear Calc 84.4 Estimated GFR > 60 Fasting Glucose 92 Calcium 8.3 L Total Bilirubin 0.3 AST 67 H ALT 37 H Alkaline Phosphatase 67 Total Creatine Kinase 952 H Total Protein 6.8 Albumin 3.0 L Assessment and Plan (1) Aspiration pneumonia: Status: Acute (2) Rhabdomyolysis: Status: Acute Plan 68-year-old female with multiple medical issues presented due to a fall with no preceding symptoms of lightheadedness or dizziness noted to have elevated WBC tachycardia question pneumonia and elevated troponin, CPK will admit to telemetry unit with diagnosis of sepsis due to pneumonia and further workup for elevated troponin and abnormal EKG. 1.Sepsis due to pneumonia question aspiration -IV ceftriaxone/azithromycin (5) -titrate O2 to maintain sats greater than equal to 90% 2.Acute rhabdomyolysis -CKs responding well to volume.... Continue same -check CKs/renals/divalents daily 3.Hypertension -acceptable control on current therapies -adjust as indicated 4. Left shoulder pain -check plain films Lovenox Full code In my clinical judgment patient need continued inpatient hospitalization for management of sepsis with pneumonia requiring IV antibiotic and IV fluid for rhabdomyolysis Quality Stroke Does the patient have a stroke diagnosis?: No VTE Prior VTE?: No VTE Risk Level:: Medical - moderate - high VTE Device Contraindication: Treatment Not Indicated VTE Drug Contraindication: N/A - Med Ordered
--- NOTE | 2023-12-30 13:50 | MHC.CM.PN ---
EMR reviewed and per MD rounds, pt is not medically cleared for D/C due to management of sepsis and pneumonia, requiring IV antibiotics. CM will continue to follow.
[2023-12-30] MEDS: Enoxaparin Sodium 40 MG/0.4 ML SYRINGE SUBCUT (18:43)
[2023-12-30] MEDS: Azithromycin 500 MG in 0.9 % Sodium Chloride 250 ML 125 MG IV (19:50)
[2023-12-30] MEDS: Prazosin HCL 1 MG CAPSULE PO (19:50)
[2023-12-30] MEDS: cefTRIAXone sodium 1 GM in 0.9 % Sodium Chloride 50 ML IV (21:42)
[2023-12-31 03:55] VITALS: BP 158/64; PULSE 65; RESP 18; TEMP 37; O2SAT 97
[2023-12-31] MEDS: Levothyroxine Sodium 112 MCG TABLET PO (05:31)
[2023-12-31 06:58] VITALS: BP 139/84; PULSE 75; RESP 18; TEMP 36.3; O2SAT 95
[2023-12-31 07:03] LABS: MANUAL DIFF FLAG NO
[2023-12-31 07:23] LABS: Basophils Percent Auto 0.3 % (0-2); Eosinophils Absolute Auto 0.2 X10*3/uL (0.0-0.4); Eosinophils Percent Auto 2.9 % (0-4); Hematocrit 37.7 % (37.0-47.0); Hemoglobin 12.6 g/dl (12.0-16.0); Imm Gran Abs Auto 0.04 X10*3/uL (0.00-0.03); Imm Gran Pct Auto 0.6 % (0.0-0.4); Lymphocytes Absolute Auto 1.8 X10*3/uL (1.2-4.9); Lymphocytes Percent Auto 26.5 % (20-40); Mean Corpuscular HGB Conc 33.4 g/dl (31.0-35.0); Mean Corpuscular Hemoglobin 28.4 pg (27.0-33.0); Mean Corpuscular Volume 85.1 fL (80.0-98.0); Mean Platelet Volume 10.3 fL (9.4-12.3); Monocytes Absolute Auto 0.7 X10*3/uL (0.1-1.2); Monocytes Percent Auto 9.9 % (2-11); Neutrophils Absolute Auto 4.2 x10*3/uL (2.0-8.3); Neutrophils Percent Auto 59.8 % (45-73); Platelet Count 237 X10*3/uL (160-400); Red Blood Count 4.43 X10*6/uL (4.20-5.50); Red Cell Distribution Width 14.3 % (11.0-16.0); White Blood Count 6.9 X10*3/uL (4.8-10.8)
[2023-12-31 07:37] LABS: Alanine Aminotransferase 35 U/L (0-31); Albumin Level 3.1 g/dL (3.5-5.0); Alkaline Phosphatase 71 U/L (39-117); Anion Gap 9 (12-20); Aspartate Amino Transferase 50 U/L (5-31); Bilirubin Total 0.4 mg/dL (0.0-1.0); Blood Urea Nitrogen 8 mg/dL (9-16); Calcium 8.5 mg/dL (8.4-10.2); Carbon Dioxide 23 mmol/L (22-29); Chloride 108 mmol/L (96-108); Creatinine Clr Calc Pharmacy 87.2; Estimated Glomerular Filt Rate > 60; Glucose Fasting 103 mg/dL (60-99); Potassium 3.2 mmol/L (3.3-5.1); Sodium 137 mmol/L (135-145); Total Protein 7.1 g/dL (6.5-8.0)
[2023-12-31] MEDS: risperiDONE 1 MG TABLET PO (09:00)
[2023-12-31] MEDS: clonazePAM 0.5 MG TABLET PO ×2 (09:00→20:28)
[2023-12-31] MEDS: cloNIDine HCL 0.1 MG TABLET PO (09:00)
[2023-12-31] MEDS: Venlafaxine HCl ER 150 MG CAP.ER.24H PO (09:00)
[2023-12-31] MEDS: atenoloL 50 MG TABLET PO (09:00)
[2023-12-31] MEDS: Nicotine 21 MG PATCH.TD24 TRANSDERMA (09:00)
[2023-12-31 10:49] VITALS: BP 133/83; PULSE 71; RESP 18; TEMP 36.3; O2SAT 97
--- NOTE | 2023-12-31 12:13 | HO.PM.IMPN ---
Subjective Subjective Date of Service: 12/31/23 Interval History: Slowly improving overall. Tolerating wean Review of Systems Denies chest pain Admit shortness of breath with movement Denies nausea vomiting diarrhea Denies fever chills Physical Exam Vital Signs: Vital Signs: Last Vital Signs Temp 97.4 F 12/31/23 10:49 Pulse 71 12/31/23 10:49 Resp 18 12/31/23 10:49 BP 133/83 12/31/23 10:49 Pulse Ox 97 12/31/23 10:49 O2 Del Method Nasal Cannula 12/31/23 10:49 O2 Flow Rate 1 12/31/23 10:49 Oxygen Flow Rate 2 12/28/23 08:00 BMI result Body Mass Index 36.2 Const: Other: Awake alert no acute issues overnight Resp: Other: Clear to auscultation bilaterally no rales rhonchi or wheezes Cardio: Other: No S4; positive S1-S2; no S3 murmurs rubs or gallops GI: Other: Soft nontender nondistended normoactive bowel sounds Extrem: Other: No edema bilaterally Objective Data Active Medications Acetaminophen (Acetaminophen 325 Mg Tablet) 650 mg PO Q6H PRN PRN Reason: Pain, Mild (Pain Scale 1-3) Atenolol (Atenolol 50 Mg Tablet) 50 mg PO DAILY [facility]; Protocol Last Admin: 12/31/23 09:00 Dose: 50 mg Documented By: MITALI Benzonatate (Benzonatate 100 Mg Capsule) 100 mg PO TID PRN PRN Reason: Cough Last Admin: 12/29/23 09:33 Dose: 100 mg Documented By: SUSAN Comments: Barcode half ripped off Clonazepam (Clonazepam 0.5 Mg Tablet) 0.5 mg PO BID [facility] Last Admin: 12/31/23 09:00 Dose: 0.5 mg Documented By: MITALI Clonidine HCl (Clonidine Hcl 0.1 Mg Tablet) 0.1 mg PO DAILY [facility]; Protocol Last Admin: 12/31/23 09:00 Dose: 0.1 mg Documented By: MITALI Docusate Sodium (Docusate Sodium 100 Mg Capsule) 100 mg PO DAILY PRN PRN Reason: Constipation Enoxaparin Sodium (Enoxaparin Sodium 40 Mg/0.4 Ml Syringe) 40 mg SUBCUT Q24H [facility] Last Admin: 12/30/23 18:43 Dose: 40 mg Documented By: MITALI Ceftriaxone Sodium 1 gm/ (Sodium Chloride) 50 mls @ 100 mls/hr IV Q24H [facility] Last Infusion: 12/30/23 22:17 Dose: Infused Documented By: MICHELLE Azithromycin 500 mg/ Sodium (Chloride) 250 mls @ 125 mls/hr IV Q24H [facility] Last Infusion: 12/30/23 22:03 Dose: Infused Documented By: MICHELLE Levothyroxine Sodium (Levothyroxine Sodium 112 Mcg Tablet) 112 mcg PO DAILY@0600 [facility] Last Admin: 12/31/23 05:31 Dose: 112 mcg Documented By: RUSSELL Nicotine (Nicotine 21 Mg Patch.Td24) 21 mg TRANSDERMA DAILY [facility] Last Admin: 12/31/23 09:00 Dose: 21 mg Documented By: MITALI Ondansetron HCl (Ondansetron Hcl 4 Mg/2 Ml Vial) 4 mg IVPUSH Q8H PRN PRN Reason: Nausea and Vomiting Prazosin HCl (Prazosin Hcl 1 Mg Capsule) 1 mg PO BEDTIME [facility]; Protocol Last Admin: 12/30/23 19:50 Dose: 1 mg Documented By: MICHELLE Risperidone (Risperidone 1 Mg Tablet) 1 mg PO DAILY [facility] Last Admin: 12/31/23 09:00 Dose: 1 mg Documented By: MITALI Sodium Chloride (0.9 % Sodium Chloride Flush 3 Ml Syringe) 3 ml IVFLUSH QSHIFT [facility] Last Admin: 12/31/23 07:20 Dose: Not Given Documented By: MITALI Non-Admin Reason: See Note Venlafaxine HCl (Venlafaxine Hcl Er 150 Mg Cap.Er.24h) 150 mg PO DAILY [facility] Last Admin: 12/31/23 09:00 Dose: 150 mg Documented By: MITALI Labs 12/31/23 06:50 12/31/23 06:50 Labs: Laboratory Results - last 24 hr 12/31/23 06:50 MCV 85.1 MCH 28.4 MCHC 33.4 RDW 14.3 Plt Count 237 MPV 10.3 Immature Gran % (Auto) 0.6 H Neut % (Auto) 59.8 Lymph % (Auto) 26.5 [place] % (Auto) 9.9 Eos % (Auto) 2.9 Baso % (Auto) 0.3 Lymph # (Auto) 1.8 [place] # (Auto) 0.7 Eos # (Auto) 0.2 Baso # (Auto) 0.0 Abs Immat Gran (auto) 0.04 H Absolute Neuts (auto) 4.2 Absolute Nucleated RBC 0.000 Nucleated RBC % (auto) 0.0 Anion Gap 9 L Estim Creat Clear Calc 87.2 Estimated GFR > 60 Fasting Glucose 103 H Calcium 8.5 Total Bilirubin 0.4 AST 50 H ALT 35 H Alkaline Phosphatase 71 Total Protein 7.1 Albumin 3.1 L Assessment and Plan (1) Aspiration pneumonia: Status: Acute (2) Rhabdomyolysis: Status: Acute Plan 68-year-old female with multiple medical issues presented due to a fall with no preceding symptoms of lightheadedness or dizziness noted to have elevated WBC tachycardia question pneumonia and elevated troponin, CPK will admit to telemetry unit with diagnosis of sepsis due to pneumonia and further workup for elevated troponin and abnormal EKG. 1.Sepsis due to pneumonia question aspiration -IV ceftriaxone/azithromycin (6) -titrate O2 to maintain sats greater than equal to 90% -PT consult in a.m. 2.Acute rhabdomyolysis -CKs responding well to volume.... Continue same -check CKs/renals/divalents daily 3.Hypertension -acceptable control on current therapies -adjust as indicated 4. Left shoulder pain -check plain films Lovenox Full code In my clinical judgment patient need continued inpatient hospitalization for management of sepsis with pneumonia requiring IV antibiotic and IV fluid for rhabdomyolysis Quality Stroke Does the patient have a stroke diagnosis?: No VTE Prior VTE?: No VTE Risk Level:: Medical - moderate - high VTE Device Contraindication: Treatment Not Indicated VTE Drug Contraindication: N/A - Med Ordered
[2023-12-31 15:30] VITALS: BP 120/70; PULSE 71; RESP 18; TEMP 36.4; O2SAT 94
[2023-12-31] MEDS: 0.9 % Sodium Chloride Flush 3 ML SYRINGE IVFLUSH (17:33)
[2023-12-31] MEDS: Enoxaparin Sodium 40 MG/0.4 ML SYRINGE SUBCUT (18:44)
[2023-12-31] MEDS: Azithromycin 500 MG in 0.9 % Sodium Chloride 250 ML 125 MG IV (18:44)
[2023-12-31 19:20] VITALS: BP 142/82; PULSE 79; RESP 18; TEMP 36.2; O2SAT 97
[2023-12-31] MEDS: Prazosin HCL 1 MG CAPSULE PO (20:27)
[2023-12-31] MEDS: cefTRIAXone sodium 1 GM in 0.9 % Sodium Chloride 50 ML IV (20:28)
[2023-12-31] MEDS: Benzonatate 100 MG CAPSULE PO (20:33)
[2024-01-01] VITALS: BP 137/84; PULSE 83; RESP 16; TEMP 36.4; O2SAT 93
[2024-01-01 03:19] VITALS: BP 136/75; PULSE 89; RESP 16; TEMP 36; O2SAT 93
[2024-01-01] MEDS: Levothyroxine Sodium 112 MCG TABLET PO (06:49)
[2024-01-01 07:01] VITALS: BP 153/82; PULSE 96; RESP 20; TEMP 37.1; O2SAT 93
[2024-01-01 07:07] LABS: MANUAL DIFF FLAG NO
[2024-01-01 07:16] LABS: Basophils Percent Auto 0.3 % (0-2); Eosinophils Absolute Auto 0.3 X10*3/uL (0.0-0.4); Eosinophils Percent Auto 2.8 % (0-4); Hematocrit 38.3 % (37.0-47.0); Imm Gran Abs Auto 0.08 X10*3/uL (0.00-0.03); Imm Gran Pct Auto 0.9 % (0.0-0.4); Lymphocytes Absolute Auto 1.9 X10*3/uL (1.2-4.9); Lymphocytes Percent Auto 21.7 % (20-40); Mean Corpuscular HGB Conc 33.9 g/dl (31.0-35.0); Mean Corpuscular Hemoglobin 28.6 pg (27.0-33.0); Mean Corpuscular Volume 84.4 fL (80.0-98.0); Mean Platelet Volume 10.1 fL (9.4-12.3); Monocytes Absolute Auto 0.9 X10*3/uL (0.1-1.2); Monocytes Percent Auto 10.2 % (2-11); Neutrophils Absolute Auto 5.7 x10*3/uL (2.0-8.3); Neutrophils Percent Auto 64.1 % (45-73); Platelet Count 252 X10*3/uL (160-400); Red Blood Count 4.54 X10*6/uL (4.20-5.50); Red Cell Distribution Width 14.5 % (11.0-16.0); White Blood Count 8.8 X10*3/uL (4.8-10.8)
[2024-01-01 07:36] LABS: Alanine Aminotransferase 35 U/L (0-31); Albumin Level 3.2 g/dL (3.5-5.0); Alkaline Phosphatase 74 U/L (39-117); Anion Gap 12 (12-20); Aspartate Amino Transferase 42 U/L (5-31); Bilirubin Total 0.4 mg/dL (0.0-1.0); Blood Urea Nitrogen 12 mg/dL (9-16); Calcium 8.7 mg/dL (8.4-10.2); Carbon Dioxide 22 mmol/L (22-29); Chloride 107 mmol/L (96-108); Estimated Glomerular Filt Rate > 60; Glucose Fasting 105 mg/dL (60-99); Potassium 3.4 mmol/L (3.3-5.1); Sodium 138 mmol/L (135-145); Total Protein 7.4 g/dL (6.5-8.0)
[2024-01-01] MEDS: Venlafaxine HCl ER 150 MG CAP.ER.24H PO (08:22)
[2024-01-01] MEDS: atenoloL 50 MG TABLET PO (08:22)
[2024-01-01] MEDS: risperiDONE 1 MG TABLET PO (08:23)
[2024-01-01] MEDS: cloNIDine HCL 0.1 MG TABLET PO (08:23)
[2024-01-01] MEDS: Nicotine 21 MG PATCH.TD24 TRANSDERMA (08:23)
[2024-01-01] MEDS: 0.9 % Sodium Chloride Flush 3 ML SYRINGE IVFLUSH ×2 (08:23)
[2024-01-01 10:56] VITALS: BP 122/76; PULSE 64; RESP 18; TEMP 36.7; O2SAT 95
--- NOTE | 2024-01-01 12:22 | P.F2F_ITS ---
Service Date Service Date: 01/01/24 Encounter Date of encounter: 01/01/24 Encounter: Acute hospitalization Reasons for Services Signs and symptoms assessed: Assess respiratory status and help with med management Reason for correction: medication management, teach disease management and other (Monitoring of oxygen saturation) Homebound: Leaving the home is medically contraindicated at this time without the asist of a device and/or another person due th the listed conditions above and below. Reason homebound: unsteady gait / fall risk and unable to drive Certification: Based on the above findings, I certify that this patient is confined to the home and needs intermittent correction care, physical therapy and/or speech therapy, or continues to need occupational therapy. The patient is under my care, and I have initiated the establishment of the plan of care. The patient will be followed by a physician who will periodically review the plan of care. Time Spent With Patient Time: Total time managing care of this patient today ____ minutes.
--- NOTE | 2024-01-01 12:22 | PM.DS ---
DS: Providers Provider Date of Service: 01/01/24 Date of admission: 12/26/23 18:14 Date of discharge: 01/01/24 Primary care physician: Elissa Asencio MD Consults: 12/26/23 18:20 Consult to Cardiology Routine Consulting Provider: Margarito Flores Reason for consultation: elevated troponin Has provider been notified: No DS: Diagnosis Discharge Diagnosis (1) Aspiration pneumonia: Status: Acute (2) Rhabdomyolysis: Status: Acute DS: Summary Hospital Course Hospital Course: 68-year-old female patient with multiple medical issues including history of hyperlipidemia, hypertension, hypothyroidism, anxiety, depression, GERD, chronic smoker who was brought in to [facility] by EMS since according to patient she went to bed fine last night, she was sleeping close to the edge of bed, she tried to get out of bed that is too high and she fell to the floor, she pressed the lifeline EMS arrived found patient on the floor, altered and angela 91%, patient denies symptoms of lightheadedness dizziness, no headache, no chest pain, but she does complain of shortness of breath, she denies nausea, no vomiting, no fevers, no chills, no new cough, denies use of alcohol, denies new medication, denied seizure-like activity, denies head injury, in the emergency room she was noted to have an elevated WBC count of 12,400, stable electrolytes, renal function and blood sugars, troponin elevated to 228, CPK 9953, elevated AST 177, ALT 42, ammonia level of 33 TSH of 0.16 with normal free T4, urinalysis showed no bacteria, chest x-ray showed right basilar atelectasis and/or pneumonia,CT head and C-spine showed no acute abnormality, EKG showed nonspecific ST changes and prolonged QT, patient is on risperidone, clonidine, atenolol at home. Hospital Course Patient admitted to telemetry where monitor failed to demonstrate any pathological rhythms. She was maintained on IV ceftriaxone and azithromycin with improvement gradually over time. Her rhabdomyolysis resolved with volume repletion. She was able to be weaned off her oxygen on the day of discharge respiratory water and she did not qualify for home O2. At this point in time she is medically acceptable for discharge and can follow up with her PCP next available appointment Time Attestation Discharge coordination time: Greater than 30 minutes Quality: Safe Use of Opioids Does Pt have an Active Cancer Diagnosis on the Problem List?: No Quality: Stroke Does the patient have a stroke diagnosis?: No Physical Exam Vital Signs: Vital Signs: Last Vital Signs Temp 98.1 F 01/01/24 10:56 Pulse 64 01/01/24 10:56 Resp 18 01/01/24 10:56 BP 122/76 01/01/24 10:56 Pulse Ox 95 01/01/24 10:56 O2 Del Method Nasal Cannula 01/01/24 10:56 O2 Flow Rate 1 01/01/24 10:56 Oxygen Flow Rate 2 12/28/23 08:00 BMI result Body Mass Index 36.2 Const: Other: Awake alert no acute issues overnight Resp: Other: Clear to auscultation bilaterally no rales rhonchi or wheezes Cardio: Other: No S4; positive S1-S2; no S3 murmurs rubs or gallops GI: Other: Soft nontender nondistended normoactive bowel sounds Extrem: Other: No edema bilaterally DS: Data Data Completed and Pending Labs on day of discharge: Laboratory Results - last 24 hr 01/01/24 06:56 WBC 8.8 RBC 4.54 Hgb 13.0 Hct 38.3 MCV 84.4 MCH 28.6 MCHC 33.9 RDW 14.5 Plt Count 252 MPV 10.1 Immature Gran % (Auto) 0.9 H Neut % (Auto) 64.1 Lymph % (Auto) 21.7 [place] % (Auto) 10.2 Eos % (Auto) 2.8 Baso % (Auto) 0.3 Lymph # (Auto) 1.9 [place] # (Auto) 0.9 Eos # (Auto) 0.3 Baso # (Auto) 0.0 Abs Immat Gran (auto) 0.08 H Absolute Neuts (auto) 5.7 Absolute Nucleated RBC 0.000 Nucleated RBC % (auto) 0.0 Sodium 138 Potassium 3.4 Chloride 107 Carbon Dioxide 22 Anion Gap 12 BUN 12 Creatinine 0.64 Estim Creat Clear Calc 83.0 Estimated GFR > 60 Fasting Glucose 105 H Calcium 8.7 Total Bilirubin 0.4 AST 42 H ALT 35 H Alkaline Phosphatase 74 Total Protein 7.4 Albumin 3.2 L Discharge Plan Discharge Anticipated Discharge Date/Time: 01/01/24 12:18 Patient Disposition: Home Health Service Discharge Diagnosis: Aspiration pneumonia Referrals: Po,Lorenver O, MD [Primary Care Provider] - 1 Week Discharge Medications: New amoxicillin-pot clavulanate 875-125 mg tablet 1 tab PO BID Qty: 20 0RF Continued clonidine HCl 0.1 mg tablet 0.1 mg PO BID 90 Days Qty: 180 1RF (DME) Personal emergency response system See Rx Instructions .Route .MEDSUPPLY Qty: 1 0RF Rx Instructions: As directed (DME) Ultra-Light Rollator Misc See Rx Instructions .Route Qty: 1 0RF Rx Instructions: As directed (DME) bedside commode Kit See Rx Instructions .Route Qty: 1 0RF Rx Instructions: As directed (DME) repair front wheels on rollator See Rx Instructions .Route .MEDSUPPLY Qty: 1 0RF Rx Instructions: As directed (DME) BED LINER See Rx Instructions .Route .MEDSUPPLY Qty: 100 3RF Rx Instructions: As directed (DME) GLOVES MEDIUM See Rx Instructions .Route .MEDSUPPLY Qty: 1 11RF Rx Instructions: As directed (DME) incontinence PADS See Rx Instructions .Route .MEDSUPPLY Qty: 100 11RF Rx Instructions: As directed (DME) adult pull-ups X-LARGE See Rx Instructions .Route .MEDSUPPLY Qty: 240 11RF Rx Instructions: As directed atenolol 50 mg tablet 50 mg PO DAILY Qty: 90 0RF (DME) disposable gloves Misc See Rx Instructions .Route Qty: 1000 11RF Rx Instructions: As directed (DME) incontinence wipes See Rx Instructions .Route .MEDSUPPLY Qty: 4 11RF Rx Instructions: As directed levothyroxine 112 mcg tablet 112 mcg PO QAM 30 Days Qty: 30 3RF risperidone 1 mg tablet 1 mg PO DAILY clonazepam 0.5 mg tablet 0.5 mg PO BID Rx Instructions: administer 30 minutes before bedtime prazosin 1 mg capsule 1 mg PO BEDTIME venlafaxine 150 mg capsule,extended release 24hr 150 mg PO DAILY Discharge Orders: Discharge Order (Routine); Ordered 01/01/24 Ordered By: Toby Wiggins Diet: Advance to usual diet Activity on Discharge: As tolerated Stand Alone Forms: Patient Portal Discharge page Care Plan Goals: Resume all medicines as taken before hospital Health Concerns: Complete course of doxycycline 100 mg twice daily for a week Plan of Treatment: Follow-up with PCP next available appointment Assessment: See discharge summary
--- NOTE | 2024-01-01 12:32 | MHC.CM.PN ---
second IMM 01/01/24, Pt has been medically cleared for DC. Her daughter will transport her home. CM has explored which VNA she has, thought it was [facility], but several calls determined that she is not a pt of theirs. CM left 2 messages for Dtr to ask if she knows which [facility]NA pt. has services from, no return calls, pt cannot remember name of agency.
--- NOTE | 2024-01-01 14:39 | MHC.CM.PN ---
Pt medically cleared for D/C, [facility] This CM called Millie at [facility] to clairfy the pts VNA, Millie states the pt is active with [facility]. Referral placed in careport to [facility] and they will be able to resume care for pt.
--- NOTE | 2024-01-08 13:23 | P.CDIM_ITS ---
PROVIDER RESPONSE TEXT: To clarify, the appropriate diagnosis supported by the clinical indicators: Sepsis is/was present on admission QUERY TEXT: PHYSICIAN'S DOCUMENTATION REQUEST Date of Query: 01/03/2024 01:41 PM EST Patient Name: Azul Jin Admit Date: 12/26/2023 Dear Toby Wiggins, A review of the medical record indicates additional documentation may be needed. Please review below and update the documentation accordingly. Documentation on progress note dated 12/31/23 included the diagnosis of sepsis. Sepsis due to pneumonia question aspiration -IV ceftriaxone/azithromycin -titrate O2 to maintain SATs greater than equal to 90% The diagnosis of Sepsis is missing from the Discharge Summary 01/01/24. The patient's infectious clinical indicators include: WBC 12.4 P 109 Recognized standard criteria for this condition and other infectious definitions includes: Sepsis Systemic manifestations of infection, with 2 or more SIRS criteria which include: Fever > 100.4?F or hypothermia < 96.8?F Leukocytosis - WBC > 12,000 or leukopenia, WBC < 4,000, or > 10% bands Tachycardia- > 90 beats/minute Tachypnea- RR > 20 breaths/minute or PaCO2 < 32mmHg Source: Merck Manual 2013 Documentation should include the known or suspected organism, and the underlying infection, such as U TI or pneumonia Based on the above information and the recognized standard for sepsis, could you please clarify if th is diagnoses is still accurate and reflective of the patient's condition to ensure quality of the medical record. Sepsis is/was present on admission After study, Sepsis has been ruled out Other (explain) Clinically unable to determine (explain) Thank you, Laura Vaughn RN Use of terms such as suspected, likely, concern for, or probable (associated with a specific diagnosi s that is being evaluated, monitored, or treated as if it exists) are acceptable and can be coded in the inpatient se tting, when documented at the time of discharge. Please use your independent medical judgment in providing your response. THIS QUERY IS PART OF THE PERMANENT MEDICAL RECORD
== END 2024-01-01 13:16 | disposition home health service (06) | DRG 871 ==
LOC: HO.ED 15:59 → HO.EDOVER 18:25 → HO.IMC 19:50
PROVIDERS: Admitting Provider Hospitalist; Emergency Provider Emergency Medicine; PCP Internal Medicine; Visit Provider Hospitalist
DX: A41.9 Sepsis, unspecified organism (principal); J69.0 Pneumonitis due to inhalation of food and vomit; M62.82 Rhabdomyolysis; E87.6 Hypokalemia; E66.8 Other obesity; Z68.36 Body mass index [BMI] 36.0-36.9, adult; F39 Unspecified mood [affective] disorder; M25.512 Pain in left shoulder; E03.9 Hypothyroidism, unspecified; E78.5 Hyperlipidemia, unspecified; I10 Essential (primary) hypertension; F17.210 Nicotine dependence, cigarettes, uncomplicated; Z71.6 Tobacco abuse counseling; Z79.890 Hormone replacement therapy; Z79.899 Other long term (current) drug therapy
CPT/HCPCS: 36415; 70450; 71045; 72125; 73030; 80048; 80053; 80061; 80076; 80307; 81001; 82140; 82550; 83605; 83735; 84439; 84443; 84484; 85025; 85027; 87040; 93005; 93306; 97162; 99285; J0456; J0696; J1650; J2543; Q9957

== ENCOUNTER → 2023-12-26 11:42 | Outpatient (BNV) | payer OTHER, SELFPAY | PROVIDERS: Admitting Provider Hospitalist; Emergency Provider Emergency Medicine; PCP Internal Medicine; Visit Provider Internal Medicine Cardiovascular Disease | DX: I45.81 Long QT syndrome (principal) | CPT/HCPCS: 93010 ==

== ENCOUNTER 2023-12-26 18:14 | Outpatient (BNV) | payer OTHER, SELFPAY | END 2023-12-27 07:00 | PROVIDERS: Admitting Provider Hospitalist; Emergency Provider Emergency Medicine; PCP Internal Medicine; Visit Provider Internal Medicine Cardiovascular Disease | DX: I10 Essential (primary) hypertension (principal) | CPT/HCPCS: 93306 ==

== ENCOUNTER → 2023-12-26 18:14 | Outpatient (BNV) | payer OTHER, SELFPAY | PROVIDERS: Admitting Provider Hospitalist; Emergency Provider Emergency Medicine; PCP Internal Medicine; Visit Provider Internal Medicine Cardiovascular Disease | DX: R79.89 Other specified abnormal findings of blood chemistry (principal); M62.82 Rhabdomyolysis | CPT/HCPCS: 99222 ==

== ENCOUNTER → 2023-12-26 18:14 | Outpatient (BNV) | payer OTHER, SELFPAY | PROVIDERS: Admitting Provider Hospitalist; Emergency Provider Emergency Medicine; PCP Internal Medicine; Visit Provider Hospitalist | DX: J69.0 Pneumonitis due to inhalation of food and vomit (principal); M62.82 Rhabdomyolysis; A41.9 Sepsis, unspecified organism | CPT/HCPCS: 99223; 99232; 99233; 99239; G0180 ==

== ENCOUNTER 2024-02-11 16:40 | Outpatient (AMB) | payer OTHER, SELFPAY ==
[2024-02-11 16:47] VITALS: BP 102/62; PULSE 75; O2SAT 98; BMI 34.4
--- NOTE | 2024-02-11 16:47 | MHC.PC.OV ---
Vital Signs 02/11/24 16:47 Height 5 ft Weight 176 lb BMI 34.4 BP 102/62 Blood Pressure Location Lt brachial Position Sitting Pulse 75 Pulse Source Pulse Oximeter Pulse Oximetry (%) 98 Oxygen Delivery Method Room Air Intake Visit Reasons: Rash down her leg, arm pain Allergies No Known Allergies Allergy (Mild, Verified 02/11/24 16:47) UNKNWON Tobacco use date assessed: 02/11/24 Fall risk assessment: No Falls in past year Last assessed Fall Risk: 02/11/24 Dental Screening Dental Screen Date: 02/11/24 Did you have a dental visit in the last 12 months?: No Did you have a dental problem in the last 6 months where you did not have access to dental care?: No Was dental information given to patient?: No HPI Rash down her leg, arm pain HPI Details 68-year-old obese female smoker with hypertension hypothyroid hypercholesterolemia generalized anxiety disorder and GERD coming in for an acute problem. Last seen in August 2023. Patient's colonoscopy was last done in 2004 due for mammogram. Review of the notes hospital admission December 2023 diagnosis of aspiration pneumonia rhabdomyolysis. Had a fall from bed placed on ceftriaxone and Zithromax volume repletion done. With her having hematuria patient also follows up with urology had cystoscopy done gemtessa prescribed to replace tolterodine for mixed incontinence. 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 Mother Hypertension Cancer Social History Household Members: None Housing: Apartment Do you presently have visiting nurse or other home services: Yes Alcohol intake: never Patient Tobacco Use Status: Current everyday Tobacco user Tobacco use type: Cigarette Cigarette Packs Per Day: 1 Cigarettes Per Day: 20.0 e-Cigarette/Vaping Use: Never Used Second Hand Smoke Exposure: Yes service: No Current occupational status: disabled Cognitive needs: Yes Hearing needs: No Vision needs: Yes Questionnaire PHQ-9 Over the last 2 weeks, how often have you been bothered by any of the following problems? 1. Little interest or pleasure in doing things: nearly every day 2. Feeling down, depressed, or hopeless: nearly every day 3. Trouble falling or staying asleep, or sleeping too much: more than half the days 4. Feeling tired or having little energy: more than half the days 5. Poor appetite or overeating: more than half the days 6. Feeling bad about yourself - or that you are a failure or have let yourself or your family down: nearly every day 7. Trouble concentrating on things, such as reading the newspaper or watching television: nearly every day 8. Moving or speaking so slowly that other people could have noticed. Or the opposite - being so fidgety or restless that you have been moving around a lot more than usual: more than half the days 9. Thoughts that you would be better off or of hurting yourself in some way: not at all Total score: 20 Source: Developed by Drs. Geronimo Alvarez, Dalia Shields, Brandon Cleveland and colleagues, with an educational miriam from [employer]. Thrive Questionnaire Date Thrive assessed: 12/27/23 AUDIT C Alcohol Use Questionnaire (AUDIT-C) 1. How often do you have a drink containing alcohol?: Never 3. How often do you have six or more drinks on one occasion?: Never Total Score: 0 NIHARIKA-7 AMB Questionnaire NIHARIKA-7 Date NIHARIKA - 7 assessed: 02/11/24 Feeling nervous, anxious, or on edge: 1 = Several days Not being able to stop or control worryin = Several days Worrying too much about different things: 1 = Several days Trouble relaxin = Several days Being so restless that it is hard to sit still: 0 = Not at all Becoming easily annoyed or irritable: 1 = Several days Feeling afraid as if something awful might happen: 1 = Several days Total NIHRAIKA-7 score (0-4 normal; 5-9 mild; 10-14 moderate; 15-21 severe): 6 Source: Developed by Drs. Geronimo Alvarez, Dalia Shields, Brandon Cleveland and colleagues, with an educational miriam from [employer]. Physical exam (Primary Care) Vital Signs: Last Vital Signs Pulse 75 02/11/24 16:47 BP 102/62 02/11/24 16:47 Pulse Ox 98 02/11/24 16:47 Oxygen Delivery Method Room Air 02/11/24 16:47 BMI result Body Mass Index 34.4 Tobacco/Smoking Status: Tobacco use Status Tobacco use date assessed 02/11/24 02/11/24 16:54 Patient Tobacco Use Status Current everyday Tobacco 02/11/24 16:54 Tobacco use type Cigarette 02/11/24 16:54 e-Cigarette/Vaping Use Never Used 02/11/24 16:54 PHQ-9: PHQ-9 Score PHQ-9: Total score 20 02/11/24 17:38 Thrive Assessment: Date of Thrive Assessment Date Thrive assessed 12/27/23 02/11/24 16:54 Const General: alert; No acute distress Eyes Conjunctivae: conjunctivae normal Resp Auscultation: clear to auscultation bilaterally Cardio Rate: regular rate Rhythm: regular rhythm GI Inspection: Yes normal to inspection Other: Erythematous Macular rash with satellite lesions on bilateral groin Extrem Other: Limited elevation of the left shoulder to 90 degrees with tenderness on the bicipital groove otherwise manual muscle testing 5/5 in all extremities there is some resistance and stiffness on moving the left arm General: No edema Assessment and Plan Assessment & Plan (1) Tobacco abuse: Code(s): Z72.0 - Tobacco use Plan: Patient is strongly advised to stop smoking! (2) Hypertension: Code(s): I10 - Essential (primary) hypertension Qualifiers: Hypertension type: essential hypertension Qualified Code(s): I10 - Essential (primary) hypertension Plan: Continue with blood pressure medication. Decrease salt intake and exercise presently on atenolol 50 mg once a day (3) Hypothyroid: Code(s): E03.9 - Hypothyroidism, unspecified Qualifiers: Hypothyroidism type: acquired Qualified Code(s): E03.9 - Hypothyroidism, unspecified Plan: Continue with thyroid medication will need blood work (4) Hypercholesteremia: Code(s): E78.00 - Pure hypercholesterolemia, unspecified Plan: Avoid fried foods, chicken skin, eggs, butter margarine, pastries and meat. Be it pork or beef they have a lot of cholesterol LDL goal of less than 130 and triglyceride of less than 150 (5) Urge incontinence: Code(s): N39.41 - Urge incontinence Plan: Patient was seen by Urology placed on gemtessa (6) Generalized anxiety disorder: Comment: Dr. Morales q 4 months, therapist once a week Code(s): F41.1 - Generalized anxiety disorder Plan: Continue with counseling and therapy (7) Post-menopausal osteoporosis: Code(s): M81.0 - Age-related osteoporosis without current pathological fracture Plan: Reminded about bone density (8) Breast cancer screening by mammogram: Code(s): Z12.31 - Encounter for screening mammogram for malignant neoplasm of breast Plan: Reminded about mammogram (9) GERD (gastroesophageal reflux disease): Code(s): K21.9 - Gastro-esophageal reflux disease without esophagitis Plan: Avoid the foods that causes that usually spicy foods, tomato products, juices, coffee, soda and foods that your sensitive to. After eating do not lie down, allow 3-4 hours before in lie down. And keep the head of bed above 30 degrees to avoid the acid from going up. (10) Colon cancer screening: Code(s): Z12.11 - Encounter for screening for malignant neoplasm of colon Plan: Patient is reminded about colonoscopy. Patient has met with Gastroenterology already. (11) Cognitive impairment: Code(s): R41.89 - Other symptoms and signs involving cognitive functions and awareness Plan: Referral to neurology done. CT scan negative (12) Tinea cruris: Code(s): B35.6 - Tinea cruris Plan: Antifungal sent in but we the red erythematous lesions steroids prescribed. (13) Shoulder pain, left: Code(s): M25.512 - Pain in left shoulder Plan: Orthopedic referral done Orders: Orders MM tomosynthesis screening BI Today Z12.31 - Encounter for screening mammogram for malignant neoplasm of breast Referrals Neurology Referral R41.89 - Other symptoms and signs involving cognitive functions and awareness Orthopedics Referral M25.512 - Pain in left shoulder Medications: New triamcinolone acetonide 0.5% 1 appl topical BID 30 grams 1RF B35.6 - Tinea cruris clotrimazole 1% 1 appl topical BID 4 weeks 45 grams 0RF B35.6 - Tinea cruris triamcinolone acetonide 0.5% 1 appl topical BID 30 grams 1RF B35.6 - Tinea cruris clotrimazole 1% 1 appl topical BID 4 weeks 45 grams 0RF B35.6 - Tinea cruris Discontinued amoxicillin-pot clavulanate 875-125 mg Discontinued Reason: Doctor's Order 1 tab PO BID 20 tabs 0RF Coding Level of Care Code Est Pt Level 4 (10152) Diagnoses Tobacco abuse Z72.0 Essential hypertension I10 Hypertension type: essential hypertension Acquired hypothyroidism E03.9 Hypothyroidism type: acquired Hypercholesteremia E78.00 Urge incontinence N39.41 Generalized anxiety disorder F41.1 Post-menopausal osteoporosis M81.0 Breast cancer screening by mammogram Z12.31 GERD (gastroesophageal reflux disease) K21.9 Colon cancer screening Z12.11 Cognitive impairment R41.89 Tinea cruris B35.6 Shoulder pain, left M25.512
== END 2024-02-11 18:03 | disposition home or self-care (01) ==
PROVIDERS: PCP Internal Medicine; Visit Provider Internal Medicine
DX: Z72.0 Tobacco use (principal); I10 Essential (primary) hypertension; E03.9 Hypothyroidism, unspecified; E78.00 Pure hypercholesterolemia, unspecified; N39.41 Urge incontinence; F41.1 Generalized anxiety disorder; M81.0 Age-related osteoporosis without current pathological fracture; Z12.31 Encounter for screening mammogram for malignant neoplasm of breast; K21.9 Gastro-esophageal reflux disease without esophagitis; Z12.11 Encounter for screening for malignant neoplasm of colon; R41.89 Other symptoms and signs involving cognitive functions and awareness; B35.6 Tinea cruris; M25.512 Pain in left shoulder
CPT/HCPCS: 99214

== ENCOUNTER 2024-02-14 13:11 | Outpatient (AMB) | payer OTHER, SELFPAY ==
--- NOTE | 2024-02-14 13:29 | MHC.OFFVIS ---
Intake Intake Visit Reasons: 2m follow up Intake Note: Patient presents for follow up visit for urinary and fecal incontinence Urology Medications: none Blood Thinner: none PVR: 0ml's Vault Installer Required: No Vault Installer Name: GIANLUCA NICOLE Accompanied by: Daughter Allergies No Known Allergies Allergy (Mild, Verified 02/14/24 14:01) UNKNWON Medication List - Last Reconciled 02/14/24 by MIHIR Vernon [adult pull-ups As directed] atenolol 50 mg PO DAILY [BED LINER As directed] clonazepam 0.5 mg PO BID clonidine HCl 0.1 mg PO BID 90 days clotrimazole 1% 1 appl topical BID 4 weeks commode (bedside commode) As directed disposable gloves As directed [GLOVES MEDIUM As directed] [incontinence PADS As directed] [incontinence wipes As directed] levothyroxine 112 mcg PO QAM 30 days [Personal emergency response system As directed] prazosin 1 mg PO BEDTIME [repair front wheels on rollator As directed] risperidone 1 mg PO DAILY triamcinolone acetonide 0.5% 1 appl topical BID venlafaxine ER 150 mg PO DAILY vibegron (Gemtesa) 75 mg PO DAILY 30 days walker (Ultra-Light Rollator misc) As directed HPI HPI Comments History of Present Illness Details Azul is a 67-year-old Uzbek-speaking female patient of Dr. martínez. was accompanied by her daughter at today's office visit. She has a past medical history of dysphagia, elevated liver enzymes, right-sided humerus fracture, cholecystitis, urge incontinence, hypercholesteremia, hypothyroidism, nicotine dependence, anxiety, depression, and hypertension. She presents to the office today for follow-up. Of note, patient was seen approximately [address] Barber at which time and in office cystoscopy was performed for further assessment evaluation of microscopic hematuria in the setting of nicotine dependence. Cystoscopy findings with no suspicious bladder lesions noted, bladder wall thickening was noted. In review of patient's chart it appears patient was started on Gemtesa during last office visit however in discussion with the patient and her daughter today this script was never obtained. Previous workup has included a CT urogram noting the kidneys with no hydronephrosis, hydroureter, or calculi seen. Bilateral simple appearing cysts are seen, for which no imaging follow-up is recommended per radiology report. At the interpolar right kidney a 5 mm benign fat density angiolipoma is seen. The bladder is unremarkable. Discussion with the patient and her daughter today she continues with urinary incontinence. She continues to wear depends. Daughter discusses patient continues with incontinence associated dermatitis and has been following up with PCP for treatment. Daughter discusses further workup for ongoing issues with confusion. When asked she otherwise denies hematuria, dysuria, foul smelling urine, changes to urinary stream, flank pain, fever, and or chills. In office urinalysis results reviewed with the patient today. PVR 0 mL. She otherwise offers no other issues or concerns at this time [facility] Medical History Elevated liver enzymes Dysphagia, oropharyngeal Humerus fracture Cholelithiases Urge incontinence Hypercholesteremia Hypothyroid Tobacco abuse Anxiety and depression Hypertension Surgical History Adnexal mass History of tonsillectomy Hx of appendectomy Family History Father No problems noted. Mother Hypertension Cancer Social History Household Members: None Housing: Apartment Do you presently have visiting nurse or other home services: Yes Alcohol intake: never Patient Tobacco Use Status: Current everyday Tobacco user Tobacco use type: Cigarette Cigarette Packs Per Day: 1 Cigarettes Per Day: 20.0 e-Cigarette/Vaping Use: Never Used Second Hand Smoke Exposure: Yes service: No Current occupational status: disabled Cognitive needs: Yes Hearing needs: No Vision needs: Yes Review of Systems Const Reports as per HPI Eyes Reports no additional complaints ENT Reports no additional complaints Card Reports as per HPI Resp Reports no additional complaints GI Reports as per HPI Reports as per HPI Musc Reports as per HPI Skin/Breast Reports as per HPI Neuro Reports as per HPI Psych Reports as per HPI Endo Reports no additional complaints Castillo/Lymph Reports no additional complaints Aller/Immun Reports no additional complaints Physical Exam Const General: cooperative, comfortable, no acute distress, well developed, alert and awake Orientation/consciousness: oriented to person Limitations: ambulation with cane HEENT Head: Yes normal to inspection, Yes normocephalic and Yes atraumatic Ears: hearing grossly normal bilaterally Eyes General: appearance normal, both eyes and all related structures Neck Neck: Yes normal visual inspection and Yes trachea midline Chest Chest palpation & inspection: normal inspection of the chest Resp Effort & Inspection: normal respiratory effort and able to speak in complete sentences Cardio Rate: regular rate GI Inspection: Yes normal to inspection General: Yes no CVA tenderness Back/Spine/Pelvis Back: no CVA tenderness Skin General skin exam: no rashes or lesions noted Neuro General: oriented to person Extrem General: Yes normal to inspection Psych Appearance: grossly normal and well kempt Mental Status: mental status grossly normal Speech and movement: Normal speech and movement present and Clear speech present Affect: normal affect Attitude: cooperative Thought process: Normal thought process present Thought content: Normal thought content present Insight: Fair insight present (Psych) Judgement: Fair judgement present (Psych) Office Procedures Post Void Residual Post Residual Void Post Void Residual (PVR): 0 [id number] Void Residual by ultrasound Results AMB Urinalysis, Automated UA Leukoctes 70 Colby/uL Last Edit by [employer] on 02/14/24 13:42 UA Nitrite Negative Last Edit by [employer] on 02/14/24 13:42 UA Urobilinogen 0.2 mg/dL Last Edit by [employer] on 02/14/24 13:42 UA Protein 15 mg/dL Last Edit by [employer] on 02/14/24 13:42 UA pH 6.0 Last Edit by [employer] on 02/14/24 13:42 UA Blood 80 Perry/uL Last Edit by [employer] on 02/14/24 13:42 UA Specific Kirk 1.015 Last Edit by [employer] on 02/14/24 13:42 UA Ketone Positive Last Edit by [employer] on 02/14/24 13:42 UA Bilirubin 0 mg/dL Last Edit by [employer] on 02/14/24 13:42 UA Glucose 0 mg/dL Last Edit by [employer] on 02/14/24 13:42 Results Reviewed Results Reviewed: Laboratory Last Values Urine pH (Auto) 6.0 02/14/24 13:31 Specific Kirk (Auto) 1.015 02/14/24 13:31 Urine Protein (Auto) 15 mg/dL 02/14/24 13:31 Glucose (UA)(Auto) 0 mg/dL 02/14/24 13:31 Urine Ketones (Auto) Positive 02/14/24 13:31 Urine Blood (Auto) 80 Perry/uL 02/14/24 13:31 Urine Nitrite (Auto) Negative 02/14/24 13:31 Urine Bilirubin (Auto) 0 mg/dL 02/14/24 13:31 Urine Urobilinogen (Auto) 0.2 mg/dL 02/14/24 13:31 Leukocyte Esterase (Auto) 70 Colby/uL 02/14/24 13:31 Date of Service: 10/29/23 EXAMINATION: CT ABDOMEN AND PELVIS WITHOUT AND WITH CONTRAST FINDINGS: LUNG BASES: There is bibasilar dependent hypoaeration. There are mild coronary atherosclerotic calcifications. LIVER, GALLBLADDER, AND BILIARY TREE: The liver is normal in size, shape, and attenuation. A 5.5 cm benign, simple right hepatic lobe cyst is redemonstrated, for which no imaging follow-up is recommended. No focal hepatic solid lesion or biliary ductal dilatation is present. There are multiple gallstones, without wall thickening or obvious pericholecystic inflammatory change. PANCREAS: Unremarkable. SPLEEN: Unremarkable. ADRENAL GLANDS: Unremarkable. KIDNEYS AND URETERS: The kidneys are normal in size, shape, and attenuation. No hydronephrosis, hydroureter or calculi seen. No perinephric stranding. 2 right and 2 left renal low-attenuation simple appearing cysts are seen (9:229, 263, 226 and 260), for which no imaging follow-up is recommended. One at the upper pole of the left kidney measuring 4 mm is too small for full characterization with CT (9:226). 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 BLADDER: Unremarkable. GASTROINTESTINAL TRACT: The small and large bowel are unremarkable. No obstruction, free intraperitoneal air or abscess is seen. No significant diverticulosis or diverticulitis is seen. The appendix is is not identified with certainty; however, there is no finding to suggest appendicitis. ABDOMINAL WALL: There is a diastases rectus. No significant hernia is appreciated. LYMPH NODES: Normal. VASCULAR: There is mild aortoiliac atherosclerotic calcification. No abdominal aortic aneurysm or dissection is seen. PELVIC VISCERA: The uterus and adnexa are unremarkable. OSSEUS STRUCTURES: There is multi-level marked lower thoracic and mild lumbar spondylosis. No acute or aggressive osseous finding is noted. IMPRESSION: 1. There are benign, simple bilateral renal cysts, which require no imaging follow-up. One of these, at the upper pole of the left kidney, is too small for full characterization with CT. 2. 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 3. No urinary calculus or obstruction is seen. 4. There is cholelithiasis. 5. There are multi-level degenerative changes of the thoracic, and to a lesser extent lumbar spine. Assessment & Plan Assessment & Plan (1) Mixed stress and urge urinary incontinence: Code(s): N39.46 - Mixed incontinence (2) Nicotine dependence: Code(s): F17.200 - Nicotine dependence, unspecified, uncomplicated (3) Microhematuria: Code(s): R31.29 - Other microscopic hematuria (4) Angiolipoma of kidney: Code(s): D17.71 - Benign lipomatous neoplasm of kidney Plan In office urinalysis results reviewed with the patient today; as noted above; patient continues with microscopic hematuria. PVR 0 mL. Gemtesa resent to local pharmacy as patient's daughter states this was never obtained Discussed, educated, stressed the importance of limiting/quitting smoking for overall health and well-being. Discussed timed/scheduled voiding to assist with decreasing episodes of incontinence. Discussed at length potential causes of urinary incontinence patient is experiencing as well as angiolipoma. Previous CT results reviewed with the patient and her daughter today. Follow-up in 6-8 weeks; or sooner with any questions, concerns, and or issues. Orders: Orders AMB Urinalysis Automated 02/14/24 Z13.9 - Encounter for screening, unspecified AMB Post Void Residual by ultrasound 02/14/24 N39.41 - Urge incontinence Medications: New vibegron (Gemtesa) 75 mg PO DAILY 30 days 30 tabs 2RF N32.81 - Overactive bladder Patient Instructions: The patient had an opportunity to ask questions regarding the treatment plan. All questions were answered. Physical exam, labs, and imaging were discussed and reviewed in detail. As well as risks, benefits, and discussion of treatment choices. No major barriers to understanding were identified. The patient expressed understanding and agreement with the above treatment plan. The patient was made aware they should contact our office by phone for worsening of their current condition, the appearance of new symptoms, or with any questions or concerns. Compliance is encouraged with any medications and follow up testing that is ordered. It is a privilege to be allowed the opportunity to participate in? your urological care.? Again, if you have any questions or concerns If you have any questions or concerns please do not hesitate to contact me. The office is [phone]. This note is constructed using voice recognition software. While every effort has been made to ensure accuracy [employer] errors may have been included. Yours sincerely, MIHIR Vernon Coding Level of Care Code Est Pt Level 3 (17292) Diagnoses Mixed stress and urge urinary incontinence N39.46 Nicotine dependence F17.200 Microhematuria R31.29 Angiolipoma of kidney D17.71 CPT Codes Post Residual Void - PVR CPT Code: 98374-Vaou Void Residual by ultrasound ([id number])
== END 2024-02-14 14:09 | disposition home or self-care (01) ==
PROVIDERS: PCP Internal Medicine; Visit Provider Nurse Practitioner Family
DX: Z13.9 Encounter for screening, unspecified (principal)
CPT/HCPCS: 99213

== ENCOUNTER → 2024-02-14 13:11 | Outpatient (BNVA) | payer OTHER, SELFPAY | PROVIDERS: PCP Internal Medicine; Visit Provider Nurse Practitioner Family | DX: N39.46 Mixed incontinence (principal); R31.29 Other microscopic hematuria; D17.71 Benign lipomatous neoplasm of kidney; F17.200 Nicotine dependence, unspecified, uncomplicated | CPT/HCPCS: 51798; 81003; 99212 ==

== ENCOUNTER 2024-02-27 15:21 | Outpatient (AMB) | payer OTHER, SELFPAY ==
[2024-02-27 15:27] VITALS: BP 118/86; PULSE 71; O2SAT 96; BMI 35.0
--- NOTE | 2024-02-27 15:27 | MHC.PC.OV ---
Vital Signs 02/27/24 15:27 Height 5 ft Weight 179 lb 0.5 oz BMI 35.0 BP 118/86 Blood Pressure Location Rt brachial Position Sitting Pulse 71 Pulse Source Pulse Oximeter Pulse Oximetry (%) 96 Oxygen Delivery Method Room Air Intake Visit Reasons: 6 month f/u Intake Note: Patient is here to follow up on 6 months Technical Sales Specialist Required: No Allergies No Known Allergies Allergy (Mild, Verified 02/27/24 15:28) UNKNWON Medication List - Last Reconciled 02/27/24 by Elissa Asencio MD [adult pull-ups As directed] atenolol 25 mg PO DAILY 90 days [BED LINER As directed] clonazepam 0.5 mg PO BID clonidine HCl 0.1 mg PO BID 90 days clotrimazole-betamethasone 1-0.05 % 1 appl topical BID 4 weeks commode (bedside commode) As directed disposable gloves As directed [GLOVES MEDIUM As directed] [incontinence PADS As directed] [incontinence wipes As directed] levothyroxine 112 mcg PO QAM 30 days [Personal emergency response system As directed] prazosin 1 mg PO BEDTIME [repair front wheels on rollator As directed] risperidone 1 mg PO DAILY triamcinolone acetonide 0.5% 1 appl topical BID venlafaxine ER 150 mg PO DAILY vibegron (Gemtesa) 75 mg PO DAILY 30 days walker (Ultra-Light Rollator misc) As directed Tobacco use date assessed: 02/27/24 Fall risk assessment: No Falls in past year Last assessed Fall Risk: 02/27/24 Dental Screening Dental Screen Date: 02/27/24 HPI 6 month f/u HPI Details 68-year-old obese female with cognitive impairment, smoker with hypertension hypothyroidism hypercholesterolemia generalized anxiety disorder GERD coming in for follow-up. Last seen in February 11 2024. Review of the notes has seen Urology complaining of urinary and fecal incontinence. Patient has been followed up by Urology before placed on Gemtessa [facility] Medical History Elevated liver enzymes Dysphagia, oropharyngeal Humerus fracture Cholelithiases Urge incontinence Hypercholesteremia Hypothyroid Tobacco abuse Anxiety and depression Hypertension Surgical History Adnexal mass History of tonsillectomy Hx of appendectomy Family History Father No problems noted. Mother Hypertension Cancer Social History Household Members: None Housing: Apartment Do you presently have visiting nurse or other home services: Yes Alcohol intake: never Patient Tobacco Use Status: Current everyday Tobacco user Tobacco use type: Cigarette Cigarette Packs Per Day: 1 Cigarettes Per Day: 20.0 e-Cigarette/Vaping Use: Never Used Second Hand Smoke Exposure: Yes service: No Current occupational status: disabled Cognitive needs: Yes Hearing needs: No Vision needs: Yes Questionnaire PHQ-9 Over the last 2 weeks, how often have you been bothered by any of the following problems? 1. Little interest or pleasure in doing things: not at all 2. Feeling down, depressed, or hopeless: not at all 3. Trouble falling or staying asleep, or sleeping too much: not at all 4. Feeling tired or having little energy: not at all 5. Poor appetite or overeating: not at all 6. Feeling bad about yourself - or that you are a failure or have let yourself or your family down: not at all 7. Trouble concentrating on things, such as reading the newspaper or watching television: not at all 8. Moving or speaking so slowly that other people could have noticed. Or the opposite - being so fidgety or restless that you have been moving around a lot more than usual: not at all 9. Thoughts that you would be better off or of hurting yourself in some way: not at all Total score: 0 Depression Screening Interpretation: Negative Depression Screening Done: Yes 05887 - PHQ-9 Billing: Yes Source: Developed by Drs. Geronimo Alvarez, Dalia Shields, Brandon Cleveland and colleagues, with an educational miriam from [employer]. Thrive Questionnaire Date Thrive assessed: 12/27/23 AUDIT C Alcohol Use Questionnaire (AUDIT-C) 1. How often do you have a drink containing alcohol?: Never 3. How often do you have six or more drinks on one occasion?: Never Total Score: 0 NIHARIKA-7 AMB Questionnaire NIHARIKA-7 Date NIHARIKA - 7 assessed: 02/11/24 Feeling nervous, anxious, or on edge: 0 = Not at all Not being able to stop or control worryin = Not at all Worrying too much about different things: 0 = Not at all Trouble relaxin = Not at all Being so restless that it is hard to sit still: 0 = Not at all Becoming easily annoyed or irritable: 0 = Not at all Feeling afraid as if something awful might happen: 0 = Not at all Total NIHARIKA-7 score (0-4 normal; 5-9 mild; 10-14 moderate; 15-21 severe): 0 Source: Developed by Drs. Geronimo Alvarez, Dalia Shields, Brandon Cleveland and colleagues, with an educational miriam from [employer]. NIHARIKA-7 Assessment Billing NIHARIKA-7 Assessment Tool: NIHARIKA-7 Assessment 32797 Physical exam (Primary Care) Vital Signs: Last Vital Signs Pulse 71 02/27/24 15:27 BP 118/86 02/27/24 15:27 Pulse Ox 96 02/27/24 15:27 Oxygen Delivery Method Room Air 02/27/24 15:27 BMI result Body Mass Index 35.0 Tobacco/Smoking Status: Tobacco use Status Tobacco use date assessed 02/27/24 02/27/24 15:29 Patient Tobacco Use Status Current everyday Tobacco 02/27/24 15:29 Tobacco use type Cigarette 02/27/24 15:29 e-Cigarette/Vaping Use Never Used 02/27/24 15:29 PHQ-9: PHQ-9 Score PHQ-9: Total score 0 02/27/24 15:48 Depression Screening Interpretation: Negative Thrive Assessment: Date of Thrive Assessment Date Thrive assessed 12/27/23 02/27/24 15:29 Const General: alert; No acute distress Eyes Conjunctivae: conjunctivae normal Resp Auscultation: clear to auscultation bilaterally Cardio Rate: regular rate Rhythm: regular rhythm GI Inspection: Yes normal to inspection Extrem General: Yes normal to inspection and No edema Assessment and Plan Assessment & Plan (1) Mixed stress and urge urinary incontinence: Code(s): N39.46 - Mixed incontinence Plan: Patient has met with urology and has been placed on gemtessa. (2) Breast cancer screening by mammogram: Code(s): Z12.31 - Encounter for screening mammogram for malignant neoplasm of breast Plan: Patient is reminded about mammogram (3) Hypertension: Code(s): I10 - Essential (primary) hypertension Qualifiers: Hypertension type: essential hypertension Qualified Code(s): I10 - Essential (primary) hypertension Plan: Continue with blood pressure medication. Decrease salt intake and exercise takes atenolol 50 mg once a day prazosin (4) Tobacco abuse: Code(s): Z72.0 - Tobacco use Plan: Patient is strongly advised to stop smoking! (5) Hypothyroid: Code(s): E03.9 - Hypothyroidism, unspecified Qualifiers: Hypothyroidism type: acquired Qualified Code(s): E03.9 - Hypothyroidism, unspecified Plan: Continue with thyroid medication (6) Hypercholesteremia: Code(s): E78.00 - Pure hypercholesterolemia, unspecified Plan: Avoid fried foods, chicken skin, eggs, butter margarine, pastries and meat. Be it pork or beef they have a lot of cholesterol LDL goal of less than 130 and triglyceride of less than 150 (7) Generalized anxiety disorder: Comment: Dr. Morales q 4 months, therapist once a week Code(s): F41.1 - Generalized anxiety disorder Plan: Continue with present medication and therapy. Medications: New clotrimazole-betamethasone 1-0.05 % 1 appl topical BID 45 grams 0RF 4 weeks B35.6 - Tinea cruris Changed From atenolol 50 mg PO DAILY 90 tabs 0RF I10 - Essential (primary) hypertension To atenolol 25 mg PO DAILY 90 tabs 1RF 90 days I10 - Essential (primary) hypertension Refilled vibegron (Gemtesa) 75 mg PO DAILY 30 tabs 2RF 30 days N32.81 - Overactive bladder Discontinued clotrimazole 1% Discontinued Reason: Doctor's Order 1 appl topical BID 45 grams 0RF 4 weeks B35.6 - Tinea cruris Coding Level of Care Code Est Pt Level 4 (67563) Diagnoses Mixed stress and urge urinary incontinence N39.46 Breast cancer screening by mammogram Z12.31 Essential hypertension I10 Hypertension type: essential hypertension Tobacco abuse Z72.0 Acquired hypothyroidism E03.9 Hypothyroidism type: acquired Hypercholesteremia E78.00 Generalized anxiety disorder F41.1 Additional Codes NIHARIKA-7 Assessment Billing - NIHARIKA-7 Assessment Tool: NIHARIKA-7 Assessment 23585 ([id number])
== END 2024-02-27 16:12 | disposition home or self-care (01) ==
PROVIDERS: PCP Internal Medicine; Visit Provider Internal Medicine
DX: N39.46 Mixed incontinence (principal); I10 Essential (primary) hypertension; E03.9 Hypothyroidism, unspecified; E78.00 Pure hypercholesterolemia, unspecified; Z12.31 Encounter for screening mammogram for malignant neoplasm of breast; F41.1 Generalized anxiety disorder; Z72.0 Tobacco use
CPT/HCPCS: 99214

== ENCOUNTER 2024-03-23 14:50 | Outpatient (AMB) | payer OTHER, SELFPAY ==
--- NOTE | 2024-03-23 14:58 | A.OFFVIS_ITS ---
Vital Signs 03/23/24 15:01 Weight 178 lb Handedness Right Intake Visit Reasons: New Pt - Left Shoulder Pain Accompanied by: Daughter Allergies No Known Allergies Allergy (Mild, Verified 03/23/24 15:02) UNKNWON HPI HPI New Pt - Left Shoulder Pain: Details: Azul is a 68 year old right hand dominant female who presents today with her daughter as a new patient with complaints of left shoulder pain. Patient reports history of a fall while trying to get out of bed in December 2023. Currently she complains of a throbbing pain of the shoulder with limited above the head range of motion. [facility] Medical History Elevated liver enzymes Dysphagia, oropharyngeal Humerus fracture Cholelithiases Urge incontinence Hypercholesteremia Hypothyroid Tobacco abuse Anxiety and depression Hypertension Surgical History Adnexal mass History of tonsillectomy Hx of appendectomy Family History Father No problems noted. Mother Hypertension Cancer Social History Household Members: None Housing: Apartment Do you presently have visiting nurse or other home services: Yes Alcohol intake: never Patient Tobacco Use Status: Current everyday Tobacco user Tobacco use type: Cigarette Cigarette Packs Per Day: 1 Cigarettes Per Day: 20.0 e-Cigarette/Vaping Use: Never Used Second Hand Smoke Exposure: Yes service: No Current occupational status: disabled Cognitive needs: Yes Hearing needs: No Vision needs: Yes Physical Exam Const General: cooperative, healthy appearing, no acute distress and well groomed Orientation/consciousness: oriented to person and oriented to place HEENT Head: Yes normal to inspection, Yes normocephalic and Yes atraumatic Eyes General: appearance normal, both eyes and all related structures Alignment and Position: alignment normal Conjunctivae: conjunctivae normal EOM: EOMs intact bilaterally Neck Neck: Yes normal visual inspection and Yes trachea midline Resp Other: No rerpiratory distress Effort & Inspection: normal respiratory effort and able to speak in complete sentences GI Other: No abdominal distension Back/Spine/Pelvis Cervical Spine: normal cervical lordosis and cervical ROM normal Skin General skin exam: no rashes or lesions noted Neuro General: oriented to person, oriented to place and gait normal Extrem Other: Shoulder: + H/N 4+5/ec limited by pain ER to 30deg Results Reviewed Results Reviewed: Mild degenerative changes left shoulder joint. No visible acute fracture, dislocation or subluxation seen. Assessment & Plan Assessment & Plan (1) Shoulder pain, left: Code(s): M25.512 - Pain in left shoulder Category: Medical Plan: Reviewed radiographs and exam. Refused injection/ PT If pain worsens will return to see me. Coding Level of Care Code New Pt Level 3 (49433) Diagnoses Shoulder pain, left M25.512
== END 2024-03-23 15:08 | disposition home or self-care (01) ==
LOC: HO.HOS 14:57
PROVIDERS: PCP Internal Medicine; Visit Provider Orthopaedic Surgery
DX: M25.512 Pain in left shoulder (principal)
CPT/HCPCS: 99203

== ENCOUNTER → 2024-03-23 14:57 | Outpatient (BNVA) | payer OTHER, SELFPAY | PROVIDERS: PCP Internal Medicine; Visit Provider Orthopaedic Surgery | DX: M25.512 Pain in left shoulder (principal) | CPT/HCPCS: 99202 ==

== ENCOUNTER 2024-10-20 12:24 | Outpatient (AMB) | payer OTHER, SELFPAY ==
[2024-10-20 12:40] VITALS: BP 106/76; PULSE 70; O2SAT 99; BMI 31.9
--- NOTE | 2024-10-20 12:40 | A.OFFPC_ITS ---
Vital Signs 10/20/24 12:40 Height 5 ft Weight 163 lb 2 oz BMI 31.9 BP 106/76 Blood Pressure Location Lt brachial Position Sitting Pulse 70 Pulse Source Pulse Oximeter Pulse Oximetry (%) 99 Oxygen Delivery Method Room Air Intake Visit Reasons: [facility] 10/12 Fan Blade Aligner Required: No Accompanied by: Daughter Allergies No Known Allergies Allergy (Mild, Verified 10/20/24 12:46) UNKNWON Tobacco use date assessed: 02/27/24 Dental Screening Dental Screen Date: 02/27/24 HPI HPI Comments History of Present Illness Details 68 y/o female patient who presents to [facility] for HDF. Pt was originally admitted at [facility] on 09/25 - 09/30 due to Altered Mental Status. She was later transferred to [facility] 09/30 - 10/13. All the medical and imaging work up was negative. Patient today accompanied by daughter who provides history. Daughter reports that PCP has referred Patient to Neurology for Cognitive impairment. Per daughter, Neurology never received referral. [facility] Medical History Elevated liver enzymes Dysphagia, oropharyngeal Humerus fracture Cholelithiases Urge incontinence Hypercholesteremia Hypothyroid Tobacco abuse Anxiety and depression Hypertension Surgical History Adnexal mass History of tonsillectomy Hx of appendectomy Family History Father No problems noted. Mother Hypertension Cancer Social History Household Members: None Housing: Apartment Do you presently have visiting nurse or other home services: Yes Alcohol intake: never Patient Tobacco Use Status: Current everyday Tobacco user Tobacco use type: Cigarette Cigarette Packs Per Day: 1 Cigarettes Per Day: 20.0 e-Cigarette/Vaping Use: Never Used Second Hand Smoke Exposure: Yes service: No Current occupational status: disabled Cognitive needs: Yes Hearing needs: No Vision needs: Yes Questionnaire Thrive Questionnaire Date Thrive assessed: 12/27/23 NIHARIKA-7 AMB Questionnaire NIHARIKA-7 Date NIHARIKA - 7 assessed: 02/11/24 Source: Developed by Drs. Geronimo Alvarez, Dalia Shields, Brandon Cleveland and colleagues, with an educational miriam from [employer]. Review of Systems Const All systems reviewed & are unremarkable except as noted in HPI and below Physical exam (Primary Care) Vital Signs: Last Vital Signs Pulse 70 10/20/24 12:40 BP 106/76 10/20/24 12:40 Pulse Ox 99 10/20/24 12:40 Oxygen Delivery Method Room Air 10/20/24 12:40 BMI result Body Mass Index 31.9 Tobacco/Smoking Status: Tobacco use Status Tobacco use date assessed 02/27/24 10/20/24 12:42 Patient Tobacco Use Status Current everyday Tobacco 10/20/24 12:42 Tobacco use type Cigarette 10/20/24 12:42 e-Cigarette/Vaping Use Never Used 10/20/24 12:42 Thrive Assessment: Date of Thrive Assessment Date Thrive assessed 12/27/23 10/20/24 12:42 Const General: comfortable Nutritional Appearance: obese Orientation/consciousness: patient oriented x3 Resp Effort & Inspection: normal respiratory effort Auscultation: clear to auscultation bilaterally Cardio Heart sounds: S1 normal heart sound present and S2 normal heart sound present Neuro General: patient oriented x3, gait normal and moves all extremities Psych Speech and movement: Normal speech and movement present Coding Level of Care Code Est Pt Level 4 (98819) Diagnoses Hospital discharge follow-up Z09 Delirium R41.0 Altered mental status type: delirium Cognitive impairment R41.89 Time Spent (min) 20 Assessment & Plan Assessment & Plan (1) Hospital discharge follow-up: Code(s): Z09 - Encounter for follow-up examination after completed treatment for conditions other than malignant neoplasm Plan: Stable. (2) Altered mental status: Code(s): R41.82 - Altered mental status, unspecified Qualifiers: Altered mental status type: delirium Qualified Code(s): R41.0 - Disorientation, unspecified Plan: Stable, back to normal status. No clear etiology. (3) Cognitive impairment: Code(s): R41.89 - Other symptoms and signs involving cognitive functions and awareness Category: Medical Plan: Will re-submit the original referral to Neurology. Orders: Referrals Neurology Referral R41.89 - Other symptoms and signs involving cognitive functions and awareness
== END 2024-10-20 13:30 | disposition home or self-care (01) ==
PROVIDERS: PCP Internal Medicine; Visit Provider Nurse Practitioner Family
DX: Z09 Encounter for follow-up examination after completed treatment for conditions other than malignant neoplasm (principal); R41.0 Disorientation, unspecified; R41.89 Other symptoms and signs involving cognitive functions and awareness

== ENCOUNTER → 2024-10-20 12:24 | Outpatient (BNVA) | payer OTHER, SELFPAY | PROVIDERS: PCP Internal Medicine; Visit Provider Nurse Practitioner Family | DX: Z09 Encounter for follow-up examination after completed treatment for conditions other than malignant neoplasm (principal); R41.0 Disorientation, unspecified; R41.89 Other symptoms and signs involving cognitive functions and awareness | CPT/HCPCS: 99212 ==

== ENCOUNTER 2024-11-06 09:31 | Outpatient (AMB) | payer OTHER, SELFPAY ==
[2024-11-06 10:27] VITALS: BP 94/68; PULSE 72; O2SAT 97; BMI 32.7
--- NOTE | 2024-11-06 10:27 | A.OFFPC_ITS ---
Vital Signs 11/06/24 10:27 Height 5 ft Weight 167 lb 4 oz BMI 32.7 BP 94/68 Blood Pressure Location Lt brachial Position Sitting Pulse 72 Pulse Source Pulse Oximeter Pulse Oximetry (%) 97 Oxygen Delivery Method Room Air Intake Visit Reasons: Foot Fungus, UTI symptoms Counseling Case Manager Required: No Accompanied by: Daughter Allergies No Known Allergies Allergy (Mild, Verified 11/06/24 10:28) UNKNWON Medication List - Last Reconciled 11/06/24 by Tami Agudelo PA-C [adult pull-ups As directed] atenolol 25 mg PO DAILY 90 days [BED LINER As directed] clonazepam 0.5 mg PO BID clonidine HCl 0.1 mg PO BID 90 days clotrimazole-betamethasone 1-0.05 % topical BID commode (bedside commode) As directed disposable gloves As directed donepezil 5 mg PO DAILY [GLOVES MEDIUM As directed] [incontinence PADS As directed] [incontinence wipes As directed] levothyroxine mcg PO [Personal emergency response system As directed] prazosin 2 mg PO BEDTIME [repair front wheels on rollator As directed] risperidone 1 mg PO DAILY risperidone 0.5 mg PO BEDTIME triamcinolone acetonide 0.5% 1 appl topical BID venlafaxine ER 225 mg PO DAILY vibegron (Gemtesa) 75 mg PO DAILY 30 days walker (Ultra-Light Rollator misc) As directed Tobacco use date assessed: 02/27/24 Dental Screening Dental Screen Date: 02/27/24 HPI Foot Fungus, UTI symptoms HPI Details 68-year-old obese female with cognitive impairment, tobacco abuse, hypertension, hypothyroidism, hypercholesterolemia, generalized anxiety disorder, GERD last seen by nurse practitioner 10/20/2024 coming in for acute problem. Patient presents today with her daughter. She was recently discharged from a mental health institution and has been living with her daughter who is her primary sheet rock installation helper. Since discharge she has been having worsening incontinence where previously it was more controlled and also yes and and cognitive impairment. Her daughter reports she has been wandering around outside with just a coat and has been constantly eating at her new behaviors. The patient also reports pain with urination. They also mentioned she has a thickening of her right big toenail. No other concerns today. [facility] Medical History Elevated liver enzymes Dysphagia, oropharyngeal Humerus fracture Cholelithiases Urge incontinence Hypercholesteremia Hypothyroid Tobacco abuse Anxiety and depression Hypertension Surgical History Adnexal mass History of tonsillectomy Hx of appendectomy Family History Father No problems noted. Mother Hypertension Cancer Social History Household Members: None Housing: Apartment Do you presently have visiting nurse or other home services: Yes Alcohol intake: never Patient Tobacco Use Status: Current everyday Tobacco user Tobacco use type: Cigarette Cigarette Packs Per Day: 1 Cigarettes Per Day: 20.0 e-Cigarette/Vaping Use: Never Used Second Hand Smoke Exposure: Yes service: No Current occupational status: disabled Cognitive needs: Yes Hearing needs: No Vision needs: Yes Questionnaire Thrive Questionnaire Date Thrive assessed: 12/27/23 NIHARIKA-7 AMB Questionnaire NIHARIKA-7 Date NIHARIKA - 7 assessed: 02/11/24 Source: Developed by Drs. Geronimo Alvarez, Dalia Shields, Brandon Cleveland and colleagues, with an educational miriam from [email or web address]. Review of Systems Const Denies body aches, Denies chills, Denies fever(s), Denies headache(s) and Denies poor appetite Eyes Reports no additional complaints ENT Denies dysphagia, Denies dizziness, Denies headache(s) and Denies odynophagia Card Denies chest pain, Denies syncope, Denies edema, Denies irregular heart rhythm, Denies lightheadedness and Denies dyspnea Resp Denies cough and Denies dyspnea GI Denies abdominal pain, Denies dysphagia, Denies nausea, Denies odynophagia and Denies vomiting Details: Pain with urination, frequent urination denies any blood in the urine Musc Reports no additional complaints and Denies abnormal gait Skin/Breast Reports system reviewed and no additional complaints, except as documented Neuro Reports as per HPI, Denies abnormal gait, Denies dizziness, Denies syncope and Denies headache(s) Psych Reports no additional complaints Physical exam (Primary Care) Vital Signs: Last Vital Signs Pulse 72 11/06/24 10:27 BP 94/68 11/06/24 10:27 Pulse Ox 97 11/06/24 10:27 Oxygen Delivery Method Room Air 11/06/24 10:27 BMI result Body Mass Index 32.7 Tobacco/Smoking Status: Tobacco use Status Tobacco use date assessed 02/27/24 11/06/24 10:29 Patient Tobacco Use Status Current everyday Tobacco 11/06/24 10:29 Tobacco use type Cigarette 11/06/24 10:29 e-Cigarette/Vaping Use Never Used 11/06/24 10:29 Thrive Assessment: Date of Thrive Assessment Date Thrive assessed 12/27/23 11/06/24 10:29 Const General: cooperative, healthy appearing, comfortable and no acute distress Orientation/consciousness: patient oriented x3 HENMT Head: Yes normocephalic Ears: hearing grossly normal bilaterally General nose exam: Normal external nose present Eyes General: appearance normal, both eyes and all related structures Conjunctivae: conjunctivae normal Neck Neck: Yes full ROM and Yes no lymphadenopathy Resp Effort & Inspection: normal respiratory effort Auscultation: clear to auscultation bilaterally, no crackles, no rales, no rhonchi and no wheezes Cardio Rate: regular rate Rhythm: regular rhythm GI Palpation (GI): Soft to palpation, not firm, nontender, no guarding and not rigid General: Yes no CVA tenderness Back/Spine/Pelvis Back: no CVA tenderness Skin Other: Yellow discoloration and thickening of the right great toe nail General skin exam: no rashes or lesions noted Neuro General: patient oriented x3 Gait exam (Neuro): Normal gait present Extrem General: Yes normal to inspection, Yes full ROM and No edema Psych Affect: normal affect Attitude: cooperative Insight: Good insight present (Psych) Judgement: Good judgement present (Psych) Results AMB Urinalysis, Automated UA Leukoctes 0 Colby/uL Last Edit by ROSA Sandoval on 11/06/24 10:52 UA Nitrite Negative Last Edit by ROSA Sandoval on 11/06/24 10:52 UA Urobilinogen 0 mg/dL Last Edit by ROSA Sandoval on 11/06/24 10:52 UA Protein 1 mg/dL Last Edit by ROSA Sandoval on 11/06/24 10:52 UA pH 6.0 Last Edit by ROSA Sandoval on 11/06/24 10:52 UA Blood 10 Perry/uL Last Edit by ROSA Sandoval on 11/06/24 10:52 UA Specific [place] 1.020 Last Edit by ROSA Sandoval on 11/06/24 10:52 UA Ketone Positive Last Edit by ROSA Sandoval on 11/06/24 10:52 UA Bilirubin 0 mg/dL Last Edit by ROSA Sandoval on 11/06/24 10:52 UA Glucose 0 mg/dL Last Edit by ROSA Sandoval on 11/06/24 10:52 Results Reviewed Results Reviewed: Laboratory Last Values Urine pH (Auto) 6.0 11/06/24 10:51 Specific [place] (Auto) 1.020 11/06/24 10:51 Urine Protein (Auto) 1 mg/dL 11/06/24 10:51 Glucose (UA)(Auto) 0 mg/dL 11/06/24 10:51 Urine Ketones (Auto) Positive 11/06/24 10:51 Urine Blood (Auto) 10 Perry/uL 11/06/24 10:51 Urine Nitrite (Auto) Negative 11/06/24 10:51 Urine Bilirubin (Auto) 0 mg/dL 11/06/24 10:51 Urine Urobilinogen (Auto) 0 mg/dL 11/06/24 10:51 Leukocyte Esterase (Auto) 0 Colby/uL 11/06/24 10:51 Coding Level of Care Code Est Pt Level 4 (32584) Diagnoses Onychomycosis B35.1 Dysuria R30.0 Cognitive impairment R41.89 Assessment & Plan Assessment & Plan (1) Onychomycosis: Code(s): B35.1 - Tinea unguium Category: Medical Plan: Patient has elevated liver function testing not a great candidate for terbinafine long-term. We will use topical clotrimazole b.i.d. for 1 month and advised to follow up if symptoms worsen or do not improve. Referral placed to Podiatry. (2) Dysuria: Code(s): R30.0 - Dysuria Category: Medical Plan: Patient having pain with urination as well as increased urination urinalysis today shows blood in the urine. Patient was recently treated with Keflex by [facility]. We will order for urine culture and treat with nitrofurantoin as last kidney labs are within normal limits. We will adjust treatment based on culture results and advised patient to follow up if symptoms worsen or do not improve. Reviewed red flag symptoms of urinary tract infections and when to present for re-evaluation. (3) Cognitive impairment: Code(s): R41.89 - Other symptoms and signs involving cognitive functions and awareness Category: Medical Plan: Referral placed to Neurology at last visit with nurse practitioner. Printed referral today for patient to follow up with Neurology at earliest appointment. In the meantime please follow recommendations given by Psychiatry for treatment and restrictions. Plan This note was constructed using voice recognition software. While every effort has been made to ensure accuracy and tank wagon operator, still areas may have been included sometimes these areas may affect the content or meeting of the given symptoms. Total time spent caring for the patient today was 30 minutes. This includes time spent before the visit reviewing the chart, time spent during the visit, and time spent after the visit and documentation. Orders: Orders AMB Urinalysis Automated Today N39.0 - Urinary tract infection, site not specified Urine Culture Today R30.0 - Dysuria Referrals Podiatry Referral B35.1 - Tinea unguium Medications: New nitrofurantoin monohyd/m-cryst 100 mg must administer with a meal/food 100 mg PO Q12H 5 days 10 caps 0RF clotrimazole 1% 1 appl topical BID 10 mL 0RF
== END 2024-11-06 11:34 | disposition home or self-care (01) ==
PROVIDERS: PCP Internal Medicine
DX: B35.1 Tinea unguium (principal); R30.0 Dysuria; R41.89 Other symptoms and signs involving cognitive functions and awareness; N39.0 Urinary tract infection, site not specified

== ENCOUNTER → 2024-11-06 09:31 | Outpatient (BNVA) | payer OTHER, SELFPAY | PROVIDERS: PCP Internal Medicine | DX: B35.1 Tinea unguium (principal); R30.0 Dysuria; R41.89 Other symptoms and signs involving cognitive functions and awareness | CPT/HCPCS: 81003; 87086; 99212 ==

== ENCOUNTER 2024-11-06 12:12 | Outpatient (REF) | payer OTHER, SELFPAY | END 2024-11-06 12:13 | disposition home or self-care (01) | LOC: HO.LNP 12:12 | DX: Z13.89 Encounter for screening for other disorder (principal) | CPT/HCPCS: 87086 ==

== ENCOUNTER 2024-12-03 15:08 | Outpatient (AMB) | payer OTHER, SELFPAY ==
[2024-12-03 15:14] VITALS: BP 100/72; PULSE 88; O2SAT 98; BMI 33.7
--- NOTE | 2024-12-03 15:14 | A.OFFPC_ITS ---
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 Accompanied by: Self / Same As Patient Allergies No Known Allergies Allergy (Mild, Verified 12/03/24 15:14) UNKNWON Tobacco use date assessed: 12/03/24 Fall risk assessment: No Falls in past year Last assessed Fall Risk: 12/03/24 Dental Screening Dental Screen Date: 12/03/24 Did you have a dental visit in the last 12 months?: No Did you have a dental problem in the last 6 months where you did not have access to dental care?: No Was dental information given to patient?: No HPI Follow Up Parkinsons Disease HPI Details The patient is a 68-year-old male presenting with concerns regarding his mother's deterioration in health related to moderate dementia, parkinsonian syndrome, adverse effects of psychiatric medications, and urinary incontinence. It was reported that his mother's health issues began to worsen after the administration of risperidone, prescribed for parkinsonism symptoms, leading to involuntary arm movements. Her therapist indicated that other medications could also be contributing to the symptoms. The patient's mother has a family history of Alzheimer's and dementia, which has progressed rapidly in her case. She is on multiple psychiatric medications without physician coordination, causing further complications like lip-smacking and stiffness. Recently, urinary incontinence became significant, with the mother urinating on herself regularly, despite having been evaluated by a specialist who reported normal function. There is a challenge in managing her condition at home, leading to substantial caregiver stress and the suggestion of assisted living placement. The mother was tasked with having an MRI to assess the extent of brain utilization concerning her moderate dementia diagnosis, characterized by confusion and memory impairment. Her daughter, the informant, reports that the living situation is further complicated by financial constraints and lack of support from other family members. [facility] Medical History Elevated liver enzymes Dysphagia, oropharyngeal Humerus fracture Cholelithiases Urge incontinence Hypercholesteremia Hypothyroid Tobacco abuse Anxiety and depression Hypertension Surgical History Adnexal mass History of tonsillectomy Hx of appendectomy Family History Father No problems noted. Mother Hypertension Cancer Social History Household Members: None Housing: Apartment Do you presently have visiting nurse or other home services: Yes Alcohol intake: never Patient Tobacco Use Status: Current everyday Tobacco user Tobacco use type: Cigarette Cigarette Packs Per Day: 1 Cigarettes Per Day: 20.0 e-Cigarette/Vaping Use: Never Used Second Hand Smoke Exposure: Yes service: No Current occupational status: disabled Cognitive needs: Yes Hearing needs: No Vision needs: Yes Questionnaire PHQ-9 Over the last 2 weeks, how often have you been bothered by any of the following problems? 1. Little interest or pleasure in doing things: not at all 2. Feeling down, depressed, or hopeless: not at all 3. Trouble falling or staying asleep, or sleeping too much: not at all 4. Feeling tired or having little energy: not at all 5. Poor appetite or overeating: not at all 6. Feeling bad about yourself - or that you are a failure or have let yourself or your family down: not at all 7. Trouble concentrating on things, such as reading the newspaper or watching television: not at all 8. Moving or speaking so slowly that other people could have noticed. Or the opposite - being so fidgety or restless that you have been moving around a lot more than usual: not at all 9. Thoughts that you would be better off or of hurting yourself in some way: not at all Total score: 0 Depression Screening Interpretation: Negative Depression Screening Done: Yes 09762 - PHQ-9 Billing: Yes Source: Developed by Drs. Geronimo Alvarez, Dalia Shields, Brandon Cleveland and colleagues, with an educational miriam from [employer]. Thrive Questionnaire Date Thrive assessed: 12/03/24 I am a: Patient What is your living situation today?: I have a steady place to live Within the past 12 months, did the food you bought not last and you didn't have the money to get more?: Never true Within the past 12 months, did you worry whether your food would run out before you got money to buy more?: Never true Do you have trouble paying for medicines?: No Do you have trouble getting transportation to medical appointments?: No Do you have trouble paying your heating and electricity bill?: No Do you have trouble taking care of your child, family member or friend?: No Do you have trouble with day-to-day activities such as bathing, preparing meals, shopping, managing finances, etc.?: No Are you currently unemployed and looking for a job?: No Are you interested in more education?: No Please select the resources that you would like help with: None Currently or been in a relationship where the following occur: No concerns reported THRIVE Score: 0 AUDIT C Alcohol Use Questionnaire (AUDIT-C) 1. How often do you have a drink containing alcohol?: Never 3. How often do you have six or more drinks on one occasion?: Never Total Score: 0 NIHARIKA-7 AMB Questionnaire NIHARIKA-7 Date NIHARIKA - 7 assessed: 12/03/24 Feeling nervous, anxious, or on edge: 0 = Not at all Not being able to stop or control worryin = Not at all Worrying too much about different things: 0 = Not at all Trouble relaxin = Not at all Being so restless that it is hard to sit still: 0 = Not at all Becoming easily annoyed or irritable: 0 = Not at all Feeling afraid as if something awful might happen: 0 = Not at all Total NIHARIKA-7 score (0-4 normal; 5-9 mild; 10-14 moderate; 15-21 severe): 0 Source: Developed by Drs. Geronimo Alvarez, Dalia Shields, Brandon Cleveland and colleagues, with an educational miriam from [employer]. Physical exam (Primary Care) Vital Signs: Last Vital Signs Pulse 88 12/03/24 15:14 BP 100/72 12/03/24 15:14 Pulse Ox 98 12/03/24 15:14 Oxygen Delivery Method Room Air 12/03/24 15:14 BMI result Body Mass Index 33.7 Tobacco/Smoking Status: Tobacco use Status Tobacco use date assessed 12/03/24 12/03/24 15:22 Patient Tobacco Use Status Current everyday Tobacco 12/03/24 15:22 Tobacco use type Cigarette 12/03/24 15:22 e-Cigarette/Vaping Use Never Used 12/03/24 15:22 PHQ-9: PHQ-9 Score PHQ-9: Total score 0 12/03/24 15:47 Depression Screening Interpretation: Negative Thrive Assessment: Date of Thrive Assessment Date Thrive assessed 12/03/24 12/03/24 15:22 Currently or been in a relationship where the following occur: No concerns reported Const General: alert; No acute distress Eyes Conjunctivae: conjunctivae normal Resp Auscultation: clear to auscultation bilaterally Cardio Rate: regular rate Rhythm: regular rhythm GI Inspection: Yes normal to inspection Extrem General: Yes normal to inspection and No edema Coding Level of Care Code Est Pt Level 4 (24284) Complex EM visit Add On G2211 Diagnoses Cognitive impairment R41.89 Parkinsonian features R29.818 GERD (gastroesophageal reflux disease) K21.9 Tobacco abuse Z72.0 Essential hypertension I10 Hypertension type: essential hypertension Acquired hypothyroidism E03.9 Hypothyroidism type: acquired Hypercholesteremia E78.00 Generalized anxiety disorder F41.1 Additional Codes PHQ-9 - 04239 - PHQ-9 Billing: Yes ([id number]) Assessment & Plan Assessment & Plan (1) Cognitive impairment: Code(s): R41.89 - Other symptoms and signs involving cognitive functions and awareness Category: Medical Plan: followed up by neurology (2) Parkinsonian features: Code(s): R29.818 - Other symptoms and signs involving the nervous system Category: Medical Plan: MRI requested and decreased risperidone (3) GERD (gastroesophageal reflux disease): Code(s): K21.9 - Gastro-esophageal reflux disease without esophagitis Category: Medical (4) Tobacco abuse: Code(s): Z72.0 - Tobacco use Category: Medical (5) Hypertension: Code(s): I10 - Essential (primary) hypertension Category: Medical Qualifiers: Hypertension type: essential hypertension Qualified Code(s): I10 - Essential (primary) hypertension (6) Hypothyroid: Code(s): E03.9 - Hypothyroidism, unspecified Category: Medical Qualifiers: Hypothyroidism type: acquired Qualified Code(s): E03.9 - Hypothyroidism, unspecified (7) Hypercholesteremia: Code(s): E78.00 - Pure hypercholesterolemia, unspecified Category: Medical (8) Generalized anxiety disorder: Comment: Dr. Meade q 4 months, therapist once a week Code(s): F41.1 - Generalized anxiety disorder Category: Medical Plan - Evaluate current psychiatric medications with a neurologist to assess their contribution to adverse movement disorders. Suggest potential dosage adjustment or alternative medications. - Coordinate with a psychiatrist for a revised psychiatry management plan addressing dementia-related agitation and psychiatric symptoms. Consult with Dr. Meade regarding medication adjustments. - Recommend MRI scheduling for further evaluation in context of moderate dementia and parkinsonism. - Strengthen caregiver support through consultations with Caregiver Support Agencies for QA CONSULTANT hours and financial assistance. - Address urinary incontinence through behavioral modifications and revisitation of urological assessments. - Consider referral to social services analyst for assistance with potential placement in assisted living facilities. Orders: Orders Comprehensive Met. Panel Today R41.89 - Other symptoms and signs involving cognitive functions and awareness Free T4 (Free Thyroxine) Today R41.89 - Other symptoms and signs involving cognitive functions and awareness Thyroid Stimulating Hormone Today R41.89 - Other symptoms and signs involving cognitive functions and awareness Vitamin D 25-OH Total Today R41.89 - Other symptoms and signs involving cognitive functions and awareness Syphilis Screen Today R41.89 - Other symptoms and signs involving cognitive functions and awareness Ferritin Today R41.89 - Other symptoms and signs involving cognitive functions and awareness Complete Blood Count Auto Diff Today R41.89 - Other symptoms and signs involving cognitive functions and awareness Vitamin B12 and Folate Today R41.89 - Other symptoms and signs involving cognitive functions and awareness Lipid Panel Today E78.00 - Pure hypercholesterolemia, unspecified, R41.89 - Other symptoms and signs involving cognitive functions and awareness UA CC w/rflx Micro + Cult Today R30.0 - Dysuria, R41.89 - Other symptoms and signs involving cognitive functions and awareness
== END 2024-12-03 16:18 | disposition home or self-care (01) ==
PROVIDERS: PCP Internal Medicine; Visit Provider Internal Medicine
DX: R41.89 Other symptoms and signs involving cognitive functions and awareness (principal); R29.818 Other symptoms and signs involving the nervous system; K21.9 Gastro-esophageal reflux disease without esophagitis; Z72.0 Tobacco use; I10 Essential (primary) hypertension; E03.9 Hypothyroidism, unspecified; E78.00 Pure hypercholesterolemia, unspecified; F41.1 Generalized anxiety disorder

== ENCOUNTER 2024-12-07 09:24 | Outpatient (REF) | payer OTHER, SELFPAY ==
[2024-12-07 11:24] LABS: Appearance Urine Cloudy; Color Urine Yellow; Glucose Urine UA Negative (Negative); Leukocyte Esterase Urine Trace (Negative); Nitrite Urine Negative (Negative); PH 5.5 (5.0-9.0); Specific Gravity - Urine 1.025 (1.005-1.025); UMIC TRIGGER UACC YES; Urine Blood Small (1+) (Negative); Urine Ketones Trace mg/dL (Negative); Urine Protein Trace mg/dL (Neg-Trace)
[2024-12-07 11:37] LABS: Bacteria Urine 1+ (None Seen); Hyaline Casts Urine 0-2 /LPF (0-2); WBC Urine 0-5 /HPF (0-5)
[2024-12-07 11:42] LABS: MANUAL DIFF FLAG NO
[2024-12-07 11:45] LABS: Basophils Percent Auto 0.5 % (0-2); Eosinophils Absolute Auto 0.2 X10*3/uL (0.0-0.4); Eosinophils Percent Auto 1.8 % (0-4); Hematocrit 40.1 % (42.0-52.0); Hemoglobin 12.9 g/dl (14.0-18.0); Imm Gran Abs Auto 0.04 X10*3/uL (0.00-0.03); Imm Gran Pct Auto 0.5 % (0.0-0.4); Lymphocytes Absolute Auto 2.6 X10*3/uL (1.2-4.9); Lymphocytes Percent Auto 29.1 % (20-40); Mean Corpuscular HGB Conc 32.2 g/dl (31.0-36.0); Mean Corpuscular Hemoglobin 28.4 pg (27.0-33.0); Mean Corpuscular Volume 88.3 fL (80.0-98.0); Mean Platelet Volume 10.7 fL (9.4-12.4); Monocytes Absolute Auto 0.8 X10*3/uL (0.1-1.2); Monocytes Percent Auto 8.9 % (2-11); Neutrophils Absolute Auto 5.3 x10*3/uL (2.0-8.3); Neutrophils Percent Auto 59.2 % (45-73); Platelet Count 278 X10*3/uL (160-400); Red Blood Count 4.54 X10*6/uL (4.60-5.80); Red Cell Distribution Width 13.2 % (11.0-16.0); White Blood Count 8.9 X10*3/uL (4.8-10.8)
[2024-12-07 12:47] LABS: Folate 10.7 ng/mL (> or = 4.0); Vitamin B12 360 pg/mL (200-900)
[2024-12-07 13:19] LABS: Alanine Aminotransferase 18 U/L (0-40); Albumin Level 3.7 g/dL (3.5-5.0); Alkaline Phosphatase 141 U/L (39-117); Anion Gap 8 (12-20); Aspartate Amino Transferase 28 U/L (5-37); Bilirubin Total 0.4 mg/dL (0.0-1.0); Blood Urea Nitrogen 14 mg/dL (9-16); Calcium 8.8 mg/dL (8.4-10.2); Carbon Dioxide 27 mmol/L (22-29); Chloride 109 mmol/L (96-108); Cholesterol 177 mg/dL (<200); Estimated Glomerular Filt Rate > 60; Ferritin 218 ng/mL (20-250); Free T4 (Free Thyroxine) 1.22 ng/dL (0.71-1.85); Glucose Random 106 mg/dL (60-115); HDL Cholesterol 58 mg/dL (>40); LDL Cholesterol Calculated 98 mg/dL (<100); Potassium 3.6 mmol/L (3.3-5.1); Sodium 140 mmol/L (135-145); Thyroid Stimulating Hormone 0.58 uIU/mL (0.32-4.0); Total Protein 8.2 g/dL (6.5-8.0); Triglycerides 105 mg/dL (<150); Vitamin D 25-OH Total 20.2 ng/mL (>30)
[2024-12-08 08:43] LABS: Syphilis Screen Nonreactive (Nonreactive)
== END 2024-12-07 09:25 | disposition home or self-care (01) ==
LOC: HO.WFDLDS 09:24
PROVIDERS: Visit Provider Internal Medicine
DX: R41.89 Other symptoms and signs involving cognitive functions and awareness (principal); E78.00 Pure hypercholesterolemia, unspecified
CPT/HCPCS: 36415; 80053; 80061; 81001; 82306; 82607; 82728; 82746; 84439; 84443; 85025; 86780

== ENCOUNTER 2024-12-08 09:39 | Outpatient (AMB) | payer OTHER, SELFPAY ==
[2024-12-08 09:41] VITALS: BP 120/86; PULSE 110; O2SAT 94; BMI 33.0
--- NOTE | 2024-12-08 09:41 | A.OFFPC_ITS ---
Vital Signs 12/08/24 09:41 Height 5 ft Weight 169 lb BMI 33.0 BP 120/86 Blood Pressure Location Lt brachial Position Sitting Pulse 110 H Pulse Source Pulse Oximeter Pulse Oximetry (%) 94 Oxygen Delivery Method Room Air Intake Visit Reasons: annual exam Extension Professor Required: No Accompanied by: Self / Same As Patient Allergies No Known Allergies Allergy (Mild, Verified 12/08/24 10:04) UNKNWON Medication List - Last Reconciled 12/08/24 by Tami Agudelo PA-C [adult pull-ups As directed] atenolol 25 mg PO DAILY 90 days [BED LINER As directed] clonazepam 0.5 mg PO BID clonidine HCl 0.1 mg PO BID 90 days clotrimazole 1% 1 appl topical BID commode (bedside commode) As directed disposable gloves As directed donepezil 5 mg PO DAILY [GLOVES SMALL As directed] [incontinence PADS As directed] [incontinence wipes As directed] levothyroxine mcg PO [Personal emergency response system As directed] prazosin 2 mg PO BEDTIME [repair front wheels on rollator As directed] risperidone 1 mg PO DAILY risperidone 0.5 mg PO BEDTIME venlafaxine ER 225 mg PO DAILY vibegron (Gemtesa) 75 mg PO DAILY 30 days walker (Ultra-Light Rollator misc) As directed Tobacco use date assessed: 12/08/24 Fall risk assessment: No Falls in past year Last assessed Fall Risk: 12/08/24 Dental Screening Dental Screen Date: 12/08/24 Did you have a dental visit in the last 12 months?: No Did you have a dental problem in the last 6 months where you did not have access to dental care?: No Was dental information given to patient?: No HPI annual exam HPI Details 68-year-old obese female with cognitive impairment, tobacco abuse, hypertension, hypothyroidism, hypercholesterolemia, generalized anxiety disorder, GERD last seen by Dr. Asencio 12/03/2024 coming in for annual exam. Patient presents today with her daughter who is the primary historian. She is still taking risperidone and has a appointment this Saturday with psychiatry to review her medications. They are still working on MRI with Neurology. 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 The daughter tells us the mom has been wandering throughout the night and they are working on getting her into a day program. She has been having decreased episodes of incontinence since switching Gemtesa to nightly dosing. [facility] Medical History Elevated liver enzymes Dysphagia, oropharyngeal Humerus fracture Cholelithiases Urge incontinence Hypercholesteremia Hypothyroid Tobacco abuse Anxiety and depression Hypertension Surgical History Adnexal mass History of tonsillectomy Hx of appendectomy Family History Father No problems noted. Mother Hypertension Cancer Social History Household Members: None Housing: Apartment Do you presently have visiting nurse or other home services: Yes Alcohol intake: never Patient Tobacco Use Status: Former Tobacco user Tobacco use type: Cigarette Cigarette Packs Per Day: 1 Cigarettes Per Day: 20.0 Years Smoked: stopped Leona Packs Per Year: 0 Packs per year/per ci.00 e-Cigarette/Vaping Use: Never Used Second Hand Smoke Exposure: Yes service: No Current occupational status: disabled Cognitive needs: Yes Hearing needs: No Vision needs: Yes Questionnaire PHQ-9 Over the last 2 weeks, how often have you been bothered by any of the following problems? 1. Little interest or pleasure in doing things: nearly every day 2. Feeling down, depressed, or hopeless: nearly every day 3. Trouble falling or staying asleep, or sleeping too much: several days 4. Feeling tired or having little energy: nearly every day 5. Poor appetite or overeating: not at all 6. Feeling bad about yourself - or that you are a failure or have let yourself or your family down: several days 7. Trouble concentrating on things, such as reading the newspaper or watching television: nearly every day 8. Moving or speaking so slowly that other people could have noticed. Or the opposite - being so fidgety or restless that you have been moving around a lot more than usual: nearly every day 9. Thoughts that you would be better off or of hurting yourself in some way: several days Total score: 18 Depression Screening Interpretation: Positive Depression Screening Follow-up: Existing condition and In treatment Depression Screening Done: Yes Source: Developed by Drs. Geronimo Alvarez, Dalia Shields, Brandon Cleveland and colleagues, with an educational miriam from [employer]. Thrive Questionnaire Date Thrive assessed: 12/08/24 I am a: Parent/Caregiver What is your living situation today?: I do not have a steady places to live I am temporarily staying with others Within the past 12 months, did the food you bought not last and you didn't have the money to get more?: Never true Within the past 12 months, did you worry whether your food would run out before you got money to buy more?: Never true Do you have trouble paying for medicines?: No Do you have trouble getting transportation to medical appointments?: No Do you have trouble paying your heating and electricity bill?: No Do you have trouble taking care of your child, family member or friend?: No Do you have trouble with day-to-day activities such as bathing, preparing meals, shopping, managing finances, etc.?: Yes Are you currently unemployed and looking for a job?: No Are you interested in more education?: No Please select the resources that you would like help with: Housing/Senior Care and Care for elder or disabled Currently or been in a relationship where the following occur: No concerns reported THRIVE Score: 1 AUDIT C Alcohol Use Questionnaire (AUDIT-C) 1. How often do you have a drink containing alcohol?: Never Total Score: 0 NIHARIKA-7 AMB Questionnaire NIHARIKA-7 Date NIHARIKA - 7 assessed: 12/08/24 Feeling nervous, anxious, or on edge: 3 = Nearly every day Not being able to stop or control worryin = Nearly every day Worrying too much about different things: 1 = Several days Trouble relaxin = Several days Being so restless that it is hard to sit still: 0 = Not at all Becoming easily annoyed or irritable: 2 = More than half the days Feeling afraid as if something awful might happen: 1 = Several days Total NIHARIKA-7 score (0-4 normal; 5-9 mild; 10-14 moderate; 15-21 severe): 11 Source: Developed by Drs. Geronimo Alvarez, Brandon Chavesnke and colleagues, with an educational miriam from [employer]. NIHARIKA-7 Assessment Billing NIHARIKA-7 Assessment Tool: NIHARIKA-7 Assessment 28412 Review of Systems Const Denies body aches, Denies fatigue, Denies fever(s), Denies frequent falls, Denies headache(s) and Denies weakness Eyes Reports no additional complaints, Denies change in vision and Reports requires corrective lenses ENT Denies dysphagia, Denies dizziness, Denies facial pain, Denies headache(s), Denies nasal congestion and Denies odynophagia Card Denies chest pain, Denies syncope, Denies irregular heart rhythm, Denies leg edema, Denies lightheadedness and Denies dyspnea Resp Denies cough and Denies dyspnea GI Denies abdominal pain, Reports constipation, Denies dysphagia, Denies dyspepsia, Denies diarrhea, Denies nausea, Denies odynophagia and Denies vomiting Denies dysuria, Denies urinary frequency, Denies urinary hesitancy and Denies urinary urgency Musc Denies back pain and Denies myalgias Skin/Breast Reports system reviewed and no additional complaints, except as documented Neuro Denies dizziness, Denies syncope, Denies frequent falls, Denies headache(s) and Denies weakness Psych Reports no additional complaints Endo Denies fatigue Physical exam (Primary Care) Vital Signs: Last Vital Signs Pulse 110 H 12/08/24 09:41 BP 120/86 12/08/24 09:41 Pulse Ox 94 12/08/24 09:41 Oxygen Delivery Method Room Air 12/08/24 09:41 BMI result Body Mass Index 33.0 Tobacco/Smoking Status: Tobacco use Status Tobacco use date assessed 12/08/24 12/08/24 09:44 Patient Tobacco Use Status Former Tobacco user 12/08/24 10:06 Tobacco use type Cigarette 12/08/24 09:44 e-Cigarette/Vaping Use Never Used 12/08/24 09:44 PHQ-9: PHQ-9 Score PHQ-9: Total score 18 12/08/24 12:03 Depression Screening Interpretation: Positive Depression Screening Follow-up: Existing condition and In treatment Thrive Assessment: Date of Thrive Assessment Date Thrive assessed 12/08/24 12/08/24 09:44 Currently or been in a relationship where the following occur: No concerns reported Advance Care Planning discussion: Completed/Scanned Date of discussion: 12/08/24 Who was present: Daughter, patient Forms completed: MOLST Time spent: 1-15 minutes, on File Actual minutes spent: 5 Did not discuss due to Cultural/Spiritual beliefs: No Const General: cooperative, healthy appearing, comfortable and no acute distress Orientation/consciousness: patient oriented x3 HENMT Head: Yes normocephalic Ears: hearing grossly normal bilaterally, external ears normal, TM's normal bilaterally and EAC's normal General nose exam: Normal external nose present Face and sinus: Yes normal facial exam and Yes sinuses nontender Mouth: Normal oral and palatal mucosa present and tongue normal Throat: Yes posterior oropharynx normal Eyes General: appearance normal, both eyes and all related structures Conjunctivae: conjunctivae normal Pupils: Equal, round and reactive pupils present EOM: EOMs intact bilaterally and No Nystagmus present Neck Neck: Yes normal visual inspection, Yes full ROM and Yes no lymphadenopathy Chest Chest palpation & inspection: normal inspection of the chest Resp Effort & Inspection: normal respiratory effort Auscultation: clear to auscultation bilaterally, no crackles, no rales, no rhon chi, no wheezes and breath sounds present Cardio Rate: regular rate Rhythm: regular rhythm Peripheral pulses: radial pulses present and dorsalis pedis present GI Inspection: Yes normal to inspection and No Abdominal wall edema Palpation (GI): Soft to palpation, not firm and nontender Auscultation: normal bowel sounds Rectal Exam - Male: Yes deferred General: Yes no CVA tenderness Back/Spine/Pelvis Back: no CVA tenderness Skin General skin exam: no rashes or lesions noted Neuro General: patient oriented x3 Cranial nerves: Yes Equal, round and reactive pupils present, Yes Midline tongue present, Yes Ability to bilaterally elevate shoulders present and No Nystagmus present Gait exam (Neuro): Normal gait present Extrem General: Yes normal to inspection, Yes full ROM, No no pedal edema and No edema Psych Speech and movement: Normal speech and movement present Affect: normal affect Insight: Good insight present (Psych) Judgement: Good judgement present (Psych) Coding Level of Care Code Est Pt Prev Care >65y(30358) Diagnoses Parkinsonian features R29.818 Cognitive impairment R41.89 GERD (gastroesophageal reflux disease) K21.9 Mixed stress and urge urinary incontinence N39.46 Nicotine dependence F17.200 Breast cancer screening by mammogram Z12.31 Annual physical exam Z00.00 Generalized anxiety disorder F41.1 Hypercholesteremia E78.00 Acquired hypothyroidism E03.9 Hypothyroidism type: acquired Essential hypertension I10 Hypertension type: essential hypertension Additional Codes NIHARIKA-7 Assessment Billing - NIHARIKA-7 Assessment Tool: NIHARIKA-7 Assessment 07416 ([id number]) Vital Signs *Quality* - Advance Care Planning discussion: Completed/Scanned ([id number]) Vital Signs *Quality* - Time spent: 1-15 minutes, on File ([id number]) Assessment & Plan Assessment & Plan (1) Parkinsonian features: Code(s): R29.818 - Other symptoms and signs involving the nervous system Category: Medical Plan: Continue to follow up with Neurology and Psychiatry working on an MRI at this time. (2) Cognitive impairment: Code(s): R41.89 - Other symptoms and signs involving cognitive functions and awareness Category: Medical Plan: Continue to follow with Psychiatry and Neurology undergoing medication management at this time. MRI and process (3) GERD (gastroesophageal reflux disease): Code(s): K21.9 - Gastro-esophageal reflux disease without esophagitis Category: Medical Plan: Avoid trigger foods such as citrus, tomato products, soda, caffeine, spicy foods and other foods that may be irritating to your stomach. Avoid laying flat 3-4 hours after eating and elevate the head of the bed 30 degrees to prevent acid from moving into the esophagus. (4) Mixed stress and urge urinary incontinence: Code(s): N39.46 - Mixed incontinence Category: Medical Plan: On Gemtesa and has switched dosing to nighttime and noticed an improvement in incontinence. Continue on this medication (5) Nicotine dependence: Code(s): F17.200 - Nicotine dependence, unspecified, uncomplicated Category: Medical Plan: Patient no longer smoking cigarettes enrolled in lung cancer screening program. (6) Breast cancer screening by mammogram: Code(s): Z12.31 - Encounter for screening mammogram for malignant neoplasm of breast Category: Medical Plan: Place new referral for mammogram to be completed this year. (7) Annual physical exam: Code(s): Z00.00 - Encounter for general adult medical examination without abnormal findings Category: Medical Plan: Patient is not up-to-date on all recommended routine screenings and vaccinations. She is up-to-date on her vaccinations however is due for a mammogram in order was placed today as well as referral to gastroenterology for colonoscopy screening. She is enrolled in lung cancer screening program and also placed order for bone density today. Blood work is up-to-date. Healthcare proxy form completed previously in skin to her chart and was given MOLST form today. We did discuss the form and all questions were answered and patient will bring formed next appointment visit. (8) Generalized anxiety disorder: Comment: Dr. Morales q 4 months, therapist once a week Code(s): F41.1 - Generalized anxiety disorder Category: Medical Plan: Following with Psychiatry at this time. (9) Hypercholesteremia: Code(s): E78.00 - Pure hypercholesterolemia, unspecified Category: Medical Plan: Avoid foods that are high in cholesterol such as red meat, fried foods, eggs and baked goods. Triglyceride goal of less than 150 and LDL goal of less than 100. Not currently on medical management (10) Hypothyroid: Code(s): E03.9 - Hypothyroidism, unspecified Category: Medical Qualifiers: Hypothyroidism type: acquired Qualified Code(s): E03.9 - Hypothyroidism, unspecified Plan: Currently on levothyroxine 112 continue to monitor thyroid labs (11) Hypertension: Code(s): I10 - Essential (primary) hypertension Category: Medical Qualifiers: Hypertension type: essential hypertension Qualified Code(s): I10 - Essential (primary) hypertension Plan: Continue on current blood pressure medication. Avoid salt intake and encourage healthy diet and regular exercise. Plan This note was constructed using voice recognition software. While every effort has been made to ensure accuracy and title one reading teacher, still areas may have been included sometimes these areas may affect the content or meeting of the given symptoms. Total time spent caring for the patient today was 30 minutes. This includes time spent before the visit reviewing the chart, time spent during the visit, and time spent after the visit and documentation. Orders: Orders MM tomosynthesis screening BI Today Z12.31 - Encounter for screening mammogram for malignant neoplasm of breast XR DEXA axial skeleton Today Z78.0 - Asymptomatic menopausal state Referrals Lung Cancer Screening Referral Z72.0 - Tobacco use Gastroenterology Referral Z12.11 - Encounter for screening for malignant neoplasm of colon
== END 2024-12-08 10:26 | disposition home or self-care (01) ==
PROVIDERS: PCP Internal Medicine
DX: Z00.00 Encounter for general adult medical examination without abnormal findings (principal); R29.818 Other symptoms and signs involving the nervous system; R41.89 Other symptoms and signs involving cognitive functions and awareness; K21.9 Gastro-esophageal reflux disease without esophagitis; N39.46 Mixed incontinence; F17.200 Nicotine dependence, unspecified, uncomplicated; Z12.31 Encounter for screening mammogram for malignant neoplasm of breast; F41.1 Generalized anxiety disorder; E78.00 Pure hypercholesterolemia, unspecified; E03.9 Hypothyroidism, unspecified; I10 Essential (primary) hypertension

== ENCOUNTER → 2024-12-08 09:39 | Outpatient (BNVA) | payer OTHER, SELFPAY | PROVIDERS: PCP Internal Medicine | DX: Z00.00 Encounter for general adult medical examination without abnormal findings (principal); I10 Essential (primary) hypertension; E03.9 Hypothyroidism, unspecified; E78.00 Pure hypercholesterolemia, unspecified; F41.1 Generalized anxiety disorder; K21.9 Gastro-esophageal reflux disease without esophagitis; R29.818 Other symptoms and signs involving the nervous system; F17.210 Nicotine dependence, cigarettes, uncomplicated; R41.89 Other symptoms and signs involving cognitive functions and awareness | CPT/HCPCS: 96127; 99397 ==

== ENCOUNTER 2024-12-16 19:50 | Outpatient (REF) | payer OTHER, SELFPAY ==
--- NOTE | ~2024-12-16 | MR_ITS ---
EXAMINATION: MR BRAIN WITHOUT CONTRAST CLINICAL INFORMATION: Parkinsonism/involuntary movements. COMPARISON: No prior MRI brain. Correlated to CT head dated December 26, 2023. TECHNIQUE: MRI of the brain was obtained using routine sequences without contrast. FINDINGS: No restricted diffusion. No acute intracranial hemorrhage, mass effect, midline shift, hydrocephalus or herniation. Normal susceptibility signal pattern of the basal ganglia mid brain/red nuclei. Bilateral multifocal patchy deep periventricular white matter hyperintense T2 FLAIR signal involving centrum semiovale and smith radiata and brainstem/jf. Flow-void signal within the main cerebral vessels is normal. Multifocal old lacunar infarcts involving basal ganglia and smith radiata white matter. No signal abnormality or volume loss in the hippocampi. Sellar/suprasellar region demonstrated no gross signal abnormality or masses. Craniocervical junction is intact and normal. Accessory parotid gland, right-sided. MR/MR head/brain wo con IMPRESSION: Consider demyelinating disease versus small vessel occlusive disease. No acute stroke/nonhemorrhagic ischemia.. Electronically signed by: Sherman Fierro MD 12/17/2024 08:37 AM EST
== END 2024-12-16 19:51 | disposition home or self-care (01) ==
LOC: HO.MRI 19:50
PROVIDERS: PCP Internal Medicine; Visit Provider Psychiatry & Neurology Neurology
DX: R25.9 Unspecified abnormal involuntary movements (principal)
CPT/HCPCS: 70551

== ENCOUNTER 2025-01-26 10:57 | Outpatient (REF) | payer OTHER, SELFPAY ==
--- NOTE | ~2025-01-26 | MM_ITS ---
EXAMINATION: DXA BONE DENSITY AXIAL HISTORY: Estrogen deficiency TECHNIQUE: X5 Group Dual energy absorptiometry (DEXA) of the lumbar spine, total left hip, and femoral neck was performed. COMPARISON: Comparison is made with the prior examination dated 09/04/2007. FINDINGS: The bone mineral density of the lumbar spine is 0.919 with a T-score of -2.2, and a Z-score of -0.4. This represents a BMD change of -11.8% compared to the prior exam. This is statistically significant. The bone mineral density of the left total hip is 0.800 with a T-score of -1.7, and a Z-score of -0.3. This represents BMD change of -1.2% compared to the prior exam. This is not statistically significant. The bone mineral density of the left femoral neck is 0.662 with a T-score of -2.7, and a Z-score of -1.1. This represents BMD change of -4.9% compared to the prior exam. FRACTURE RISK: The FRAX index suggests a ten year probability of major osteoporotic fracture of 14.1%, and of hip fracture 3.5%. MM/XR DEXA axial skeleton IMPRESSION: Based on bone mineral density, and according to World Health Organization (WHO) criteria, the diagnosis is consistent with osteoporosis. All bone density values are in grams per centimeter squared (g/cm2). Statistically, 68% of repeat scans fall within 1 SD (+/- 0.010 g/cm2 for AP spine L1-L4) and 1 SD (+/- 0.012 g/cm2 for femur total) FRAX is a trademark of the [employer] [place] for Metabolic Bone Disease, a World Health Organization (WHO) Collaborating Center. Electronically signed by: Geronimo Michelle MD 01/26/2025 12:09 PM [facility]
--- NOTE | ~2025-01-26 | MM_ITS ---
EXAMINATION: MM SCREENING DIGITAL BREAST TOMOSYNTHESIS, BILATERAL CLINICAL INFORMATION: Screening. Asymptomatic. COMPARISON: Mammography: Baseline. TECHNIQUE: Digital breast mammography with tomosynthesis is performed in both the craniocaudal and mediolateral oblique views along with computer-aided detection (CAD). FINDINGS: The breasts are heterogeneously dense, which may obscure small masses (ACR BI-RADS breast composition Category c). There are no significant masses, abnormal calcifications, or other abnormalities. MM/MM tomosynthesis screening BI IMPRESSION: No mammographic evidence of malignancy. ASSESSMENT: BI-RADS BI-RADS 1 - Negative RECOMMENDATION: Routine annual mammography screening. 1 year F/U This examination should not preclude the clinical evaluation of a suspicious palpable abnormality. This patient's information was entered into a reminder system with a target due date for their next mammogram. Electronically signed by: Eli Hyman DO 01/30/2025 04:15 PM [facility]
== END 2025-01-26 10:58 | disposition home or self-care (01) ==
LOC: HO.MAMMO 10:57
PROVIDERS: PCP Internal Medicine
DX: Z12.31 Encounter for screening mammogram for malignant neoplasm of breast (principal); Z13.820 Encounter for screening for osteoporosis; Z78.0 Asymptomatic menopausal state
CPT/HCPCS: 77063; 77067; 77080

== ENCOUNTER → 2025-01-26 11:30 | Outpatient (BNV) | payer OTHER, SELFPAY | PROVIDERS: PCP Internal Medicine; Visit Provider Radiology Diagnostic Radiology | DX: Z12.31 Encounter for screening mammogram for malignant neoplasm of breast (principal) | CPT/HCPCS: 77063; 77067 ==

== ENCOUNTER 2025-03-02 10:58 | Outpatient (AMB) | payer OTHER, SELFPAY ==
--- NOTE | 2025-03-02 11:02 | MHC.OFFVIS ---
Vital Signs 03/02/25 11:07 Height 4 ft 10.66 in Weight 171 lb 4.787 oz BMI 35.0 BP 102/68 Blood Pressure Location Lt brachial Position Sitting Pulse 68 Pulse Source Pulse Oximeter Pulse Oximetry (%) 97 Oxygen Delivery Method Room Air Intake Visit Reasons: Age-related osteoporosis w/o curr pathologi frac Intake Note: New patient internally referred by PCP for Age related Osteoporosis. 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: No Accompanied by: Daughter Allergies No Known Allergies Allergy (Mild, Verified 03/02/25 11:08) UNKNWON Medication List - Last Reconciled 03/02/25 by Geronimo Rahman MD [adult pull-ups As directed] atenolol 25 mg PO DAILY 90 days [BED LINER As directed] clonazepam 0.5 mg PO BID clonidine HCl 0.1 mg PO BID 90 days clotrimazole 1% 1 appl topical BID commode (bedside commode) As directed disposable gloves As directed donepezil 5 mg PO DAILY [GLOVES SMALL As directed] [incontinence PADS As directed] [incontinence wipes As directed] levothyroxine 112 mcg PO DAILY [Personal emergency response system As directed] prazosin 2 mg PO BEDTIME [repair front wheels on rollator As directed] risperidone 1 mg PO DAILY risperidone 0.5 mg PO BEDTIME venlafaxine ER 225 mg PO DAILY vibegron (Gemtesa) 75 mg PO DAILY 30 days walker (Ultra-Light Rollator misc) As directed HPI Comments Details: The patient is a 69-year-old female presenting with a diagnosis of osteoporosis originally identified in January 2020 through bone density testing. He has not received any osteoporosis-specific treatment and reports no personal history of fractures. Hesitant to engage in exercise, the patient relies on dietary sources for calcium and previously had deficient vitamin D levels. Discussion with her daughter indicates a regular intake of calcium-rich foods, but no supplementation was noted. The patient experienced a minor fall last year without fractures and reports intermittent episodes of choking when eating, First diagnosed in last mo . Not Received treatment in the past No history of pathologic fracture or ONJ. Has several servings of dietary calcium per day in the form of yogurt , cheese . Not Takes Calcium supplement . Not Takes Vitamin D daily. The patient regularly consumes a diet rich in calcium, including yogurt, milk, broccoli, cheddar cheese, roast, and yogurt. These are consumed daily, and his diet is considered the healthiest it has ever been, as per his son's report. He does not smoke or consume alcohol heavily. Previously, he lived independently but is now under his daughter's care, further supporting a structured dietary regimen. Denies ever using PPI, anticoagulant, antiepileptic or glucocorticoid medication. 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 UTD on dental cleanings and sees dentist every 6 months. No planned upcoming dental work or extractions. Ex -Tabaaco use or heay EToH use DXA dated 01/26/25 : FINDINGS: The bone mineral density of the lumbar spine is 0.919 with a T-score of -2.2, and a Z-score of -0.4. This represents a BMD change of -11.8% compared to the prior exam. This is statistically significant. The bone mineral density of the left total hip is 0.800 with a T-score of -1.7, and a Z-score of -0.3. This represents BMD change of -1.2% compared to the prior exam. This is not statistically significant. The bone mineral density of the left femoral neck is 0.662 with a T-score of -2.7, and a Z-score of -1.1. This represents BMD change of -4.9% compared to the prior exam. FRACTURE RISK: The FRAX index suggests a ten year probability of major osteoporotic fracture of 14.1%, and of hip fracture 3.5%. MM/XR DEXA axial skeleton IMPRESSION: Based on bone mineral density, and according to World Health Organization (WHO) criteria, the diagnosis is consistent with osteoporosis. Labs: [facility] Medical History (Updated 01/28/25 @ 11:29 by Pamela Martines PA-C) Osteoporosis (~2006) Personal history of nicotine dependence Elevated liver enzymes Dysphagia, oropharyngeal Humerus fracture Cholelithiases Urge incontinence Hypercholesteremia Hypothyroid Anxiety and depression Hypertension Surgical History (Updated 01/28/25 @ 11:15 by Pamela Martines PA-C) History of shoulder surgery History of colonoscopy History of esophagogastroduodenoscopy (EGD) History of right salpingo-oophorectomy History of appendectomy History of tonsillectomy Family History Father No problems noted. Mother Hypertension Cancer Social History Household Members: None Housing: Apartment Do you presently have visiting nurse or other home services: Yes Alcohol intake: never Patient Tobacco Use Status: Former Tobacco user Tobacco use type: Cigarette Cigarette Packs Per Day: 1 Cigarettes Per Day: 20.0 Years Smoked: stopped March e-Cigarette/Vaping Use: Never Used Second Hand Smoke Exposure: Yes service: No Current occupational status: disabled Cognitive needs: Yes Hearing needs: No Vision needs: Yes Physical Exam There are no Cushingoid features. Absence of blue sclera. Absence of kyphosis. Thyroid gland is of nl size and weighs 15 gms. There are no thyroid nodules palpated. Lungs CTA. Heart S1 S2 Reg R/R Abdominal exam benign. Muscle strength 5/5 . Examination of spine reveals absence of tenderness on palpation Assessment & Plan Assessment & Plan (1) Osteoporosis: Onset Date: ~2006 Comment: (Bone Dexa Femoral T-score: -2.5 on 09/04/07; -2.7 on 01/26/25) Code(s): M81.0 - Age-related osteoporosis without current pathological fracture Category: Medical Plan: This 69-year-old female with a history of osteoporosis with partial secondary workup revealing slightly low 25- vitamin-D levels Plan is to complete the secondary workup by checking a phosphorus level, SPEP, UPEP urine immunofixation, repeat 25 hydroxy vitamin-D, 24 hour urine for calcium and creatinine in 3 mos . We will ensure 1200 mg of calcium an attempt to replete vitamin-D. Once secondary workup is complete and vitamin-D levels are replete, could consider pharmacotherapy with an anti resorptive agent like oral or intravenous bisphosphonate or Prolia. 1. Osteoporosis: The patient's osteoporosis diagnosis, supported by a T-score of -2.7, will be managed by initiating daily vitamin D supplementation to address probable deficiency and its contribution to low bone density. We will focus on dietary management to ensure 1200 mg of daily calcium intake, with discussions on potential pharmacological interventions if future assessments show continued low bone density despite supplementation. Plans include monitoring through repeat bone density testing after three months and metabolic work-up via blood and urine analysis. Physical activity tailored to the patient's capability remains a recommended strategy to support bone health. I discussed with the patient and her daughter the implications of the osteoporosis diagnosis and emphasized the importance of adequate calcium and vitamin D intake. We evaluated various therapeutic options, considering the patient's current T-score and lack of fracture history. The risks of medication were weighed against the potential benefits, and a strategy of dietary supplementation was agreed upon as a first line before considering pharmacologic interventions. Furthermore, I advised precautions to prevent falls, given her risk for fractures, and discussed the benefits of possibly adding weight-bearing exercises to his daily routine. The patient was educated on signs of complications that would necessitate immediate medical attention. - Begin vitamin D supplementation at 2000 IU daily. - Ensure a minimum of 1200 mg of calcium daily through diet. - Avoid falls with home safety modifications such as adequate lighting and secure railings. - Attempt gentle weight-bearing exercises as tolerated. - Plan for follow-up testing and consultations in three months. - Monitor and report any new or worsening symptoms or falls to healthcare providers. The patient had an opportunity to ask questions regarding treatment plan. The patient expressed understanding and agreement with the above treatment plan. Patient was informed and verbally consented to the use of an ambient scribe for clinic note documentation during this visit. Orders: Orders Phosphorus 3 Months M81.0 - Age-related osteoporosis without current pathological fracture Calcium, 24 Hr Ur 3 Months M81.0 - Age-related osteoporosis without current pathological fracture Creatinine, 24 Hr Group 3 Months M81.0 - Age-related osteoporosis without current pathological fracture Protein Electrophoresis, Serum 3 Months M81.0 - Age-related osteoporosis without current pathological fracture Immunofixation, Random Urine 3 Months M81.0 - Age-related osteoporosis without current pathological fracture Vitamin D 25-OH Total 3 Months M81.0 - Age-related osteoporosis without current pathological fracture Medications: New cholecalciferol (vitamin D3) 50 mcg PO DAILY 30 caps 4RF Coding Level of Care Code New Pt Level 4 (96290) Diagnoses Osteoporosis M81.0
[2025-03-02 11:07] VITALS: BP 102/68; PULSE 68; O2SAT 97; BMI 35.0
== END 2025-03-02 11:34 | disposition home or self-care (01) ==
LOC: HO.ENCR 10:59
PROVIDERS: PCP Internal Medicine; Visit Provider Internal Medicine Endocrinology, Diabetes & Metabolism
DX: M81.0 Age-related osteoporosis without current pathological fracture (principal)
CPT/HCPCS: 99204

== ENCOUNTER → 2025-03-02 10:58 | Outpatient (BNVA) | payer OTHER, SELFPAY | PROVIDERS: PCP Internal Medicine; Visit Provider Internal Medicine Endocrinology, Diabetes & Metabolism | DX: M81.0 Age-related osteoporosis without current pathological fracture (principal) | CPT/HCPCS: 99202 ==

== ENCOUNTER 2025-06-03 12:58 | Outpatient (AMB) | payer OTHER, SELFPAY ==
--- OUTSIDE RECORDS SUMMARY | 2025-04-30 07:30 | XMS_ITS | Continuity of Care Document ---
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 [address] [place], [place], [id number], [place]. tel:[phone] Family History Family Member Type Diagnosis Age At Onset No Information Payers Payer name Insurance type Covered republican ID Authoriza tion(s) No Information Social History Type Description Quantity Date Captured Comments Sex Female Smoking Status No Information Chief Complaint And Reason For Visit No Information History Of Present Illness Encounter Date Complaint History Of Prese nt Illness No Information Instructions Date Instruction Additional Infor mation No Information Assessments Type Assessment Date No Information
[2025-06-03 13:02] VITALS: BP 118/76; PULSE 80; TEMP 36.1; O2SAT 98; BMI 34.2
--- NOTE | 2025-06-03 13:02 | A.OFFPC_ITS ---
Vital Signs 06/03/25 13:02 Height 5 ft Weight 175 lb 2 oz BMI 34.2 BP 118/76 Blood Pressure Location Lt brachial Position Sitting Pulse 80 Pulse Source Pulse Oximeter Temp 97.0 F Temp Source Temporal Artery Scan Pulse Oximetry (%) 98 Oxygen Delivery Method Room Air Intake Visit Reasons: follow up Starch And Prosize Mixer Required: No Accompanied by: Self / Same As Patient Allergies No Known Allergies Allergy (Mild, Verified 06/03/25 13:47) UNKNWON Medication List - Last Reconciled 06/03/25 by Tami Agudelo PA-C [adult pull-ups As directed] atenolol 25 mg PO DAILY 90 days [BED LINER As directed] cholecalciferol (vitamin D3) 50 mcg PO DAILY clonazepam 0.5 mg PO BID clonidine HCl 0.1 mg PO BID 90 days clotrimazole 1% 1 appl topical BID commode (bedside commode) As directed disposable gloves As directed donepezil 5 mg PO DAILY [GLOVES SMALL As directed] [incontinence PADS As directed] [incontinence wipes As directed] levothyroxine 112 mcg PO DAILY [Personal emergency response system As directed] prazosin 2 mg PO BEDTIME [repair front wheels on rollator As directed] valbenazine (Ingrezza) 40 mg PO DAILY venlafaxine ER 225 mg PO DAILY vibegron (Gemtesa) 75 mg PO DAILY 30 days walker (Ultra-Light Rollator misc) As directed Tobacco use date assessed: 06/03/25 Fall risk assessment: No Falls in past year Last assessed Fall Risk: 06/03/25 Dental Screening Dental Screen Date: 12/08/24 Did you have a dental visit in the last 12 months?: No Did you have a dental problem in the last 6 months where you did not have access to dental care?: No Was dental information given to patient?: No HPI follow up HPI Details 68-year-old obese female with cognitive impairment, tobacco abuse, hypertension, hypothyroidism, hypercholesterolemia, generalized anxiety disorder, GERD last seen 12/2024 coming in for follow up. In review of the notes patient has been seeing Neurology most recent note 12/2024 continue to reduce Risperdal consideration for Parkinson's disease. Patient was [place] [facility] [place] after overdose of her home medications. She was evaluated Psychiatry who recommended inpatient psych unit. She was seen in [place] then discharged to [facility]. Presenting with Parkinson's disease management. Parkinson's disease was diagnosed by a neurologist approximately two months ago. The patient has been experiencing involuntary movements, which are being managed with medication. The patient has a history of incontinence, which complicates waiting times at medical appointments. The patient was previously on Risperdal, which was discontinued due to adverse effects, including withdrawal symptoms. The patient experiences dysphagia, particularly with solid foods like chicken and amina bread. A barium swallow test has been recommended to assess swallowing difficulties. [facility] Medical History Osteoporosis (~2006) Personal history of nicotine dependence Elevated liver enzymes Dysphagia, oropharyngeal Humerus fracture Cholelithiases Urge incontinence Hypercholesteremia Hypothyroid Anxiety and depression Hypertension Surgical History History of shoulder surgery History of colonoscopy History of esophagogastroduodenoscopy (EGD) History of right salpingo-oophorectomy History of appendectomy History of tonsillectomy Family History Father No problems noted. Mother Hypertension Cancer Social History Household Members: None Housing: Apartment Do you presently have visiting nurse or other home services: Yes Alcohol intake: never Patient Tobacco Use Status: Current everyday Tobacco user Tobacco use type: Cigarette Cigarette Packs Per Day: 1 Cigarettes Per Day: 5 e-Cigarette/Vaping Use: Never Used Second Hand Smoke Exposure: Yes service: No Current occupational status: disabled Cognitive needs: Yes Hearing needs: No Vision needs: Yes Questionnaire PHQ-9 Over the last 2 weeks, how often have you been bothered by any of the following problems? 1. Little interest or pleasure in doing things: nearly every day 2. Feeling down, depressed, or hopeless: nearly every day 3. Trouble falling or staying asleep, or sleeping too much: several days 4. Feeling tired or having little energy: nearly every day 5. Poor appetite or overeating: not at all 6. Feeling bad about yourself - or that you are a failure or have let yourself or your family down: several days 7. Trouble concentrating on things, such as reading the newspaper or watching television: nearly every day 8. Moving or speaking so slowly that other people could have noticed. Or the opposite - being so fidgety or restless that you have been moving around a lot more than usual: nearly every day 9. Thoughts that you would be better off or of hurting yourself in some way: several days Total score: 18 Depression Screening Interpretation: Positive Depression Screening Follow-up: Existing condition and In treatment Depression Screening Done: Yes Source: Developed by Drs. Geronimo Alvarez, Dalia Shields, Brandon Cleveland and colleagues, with an educational miriam from [employer]. Thrive Questionnaire Date Thrive assessed: 06/03/25 I am a: Parent/Caregiver What is your living situation today?: I do not have a steady places to live I am temporarily staying with others Within the past 12 months, did the food you bought not last and you didn't have the money to get more?: Never true Within the past 12 months, did you worry whether your food would run out before you got money to buy more?: Never true Do you have trouble paying for medicines?: No Do you have trouble getting transportation to medical appointments?: No Do you have trouble paying your heating and electricity bill?: No Do you have trouble taking care of your child, family member or friend?: No Do you have trouble with day-to-day activities such as bathing, preparing meals, shopping, managing finances, etc.?: Yes Are you currently unemployed and looking for a job?: No Are you interested in more education?: No Currently or been in a relationship where the following occur: No concerns reported THRIVE Score: 1 AUDIT C Alcohol Use Questionnaire (AUDIT-C) 1. How often do you have a drink containing alcohol?: Never 3. How often do you have six or more drinks on one occasion?: Never Total Score: 0 NIHARIKA-7 AMB Questionnaire NIHARIKA-7 Date NIHARIKA - 7 assessed: 12/08/24 Feeling nervous, anxious, or on edge: 3 = Nearly every day Not being able to stop or control worryin = Nearly every day Worrying too much about different things: 1 = Several days Trouble relaxin = Several days Being so restless that it is hard to sit still: 0 = Not at all Becoming easily annoyed or irritable: 2 = More than half the days Feeling afraid as if something awful might happen: 1 = Several days Total NIHARIKA-7 score (0-4 normal; 5-9 mild; 10-14 moderate; 15-21 severe): 11 Source: Developed by Drs. Geronimo Alvarez, Dalia Shields, Brandon Cleveland and colleagues, with an educational miriam from [employer]. Review of Systems Const Denies body aches, Denies chills, Denies fever(s), Denies headache(s) and Denies poor appetite Eyes Reports no additional complaints ENT Reports dysphagia, Denies dizziness, Denies headache(s) and Denies odynophagia Card Denies chest pain, Denies syncope, Denies edema, Denies irregular heart rhythm, Denies lightheadedness and Denies dyspnea Resp Denies cough and Denies dyspnea GI Denies abdominal pain, Denies constipation, Reports dysphagia, Denies diarrhea, Denies nausea, Denies odynophagia and Denies vomiting Reports no additional complaints Musc Reports no additional complaints and Denies abnormal gait Skin/Breast Reports system reviewed and no additional complaints, except as documented Neuro Denies abnormal gait, Denies dizziness, Denies syncope and Denies headache(s) Psych Reports no additional complaints Physical exam (Primary Care) Tobacco/Smoking Status: Tobacco use Status Tobacco use date assessed 06/03/25 06/03/25 13:03 Patient Tobacco Use Status Former Tobacco user 06/03/25 13:03 Tobacco use type Cigarette 06/03/25 13:03 e-Cigarette/Vaping Use Never Used 06/03/25 13:03 PHQ-9: PHQ-9 Score PHQ-9: Total score 18 06/03/25 13:03 Depression Screening Interpretation: Positive Depression Screening Follow-up: Existing condition and In treatment Thrive Assessment: Date of Thrive Assessment Date Thrive assessed 06/03/25 06/03/25 13:03 Currently or been in a relationship where the following occur: No concerns reported Const General: cooperative, healthy appearing, comfortable and no acute distress Orientation/consciousness: patient oriented x3 HENMT Head: Yes normocephalic Ears: hearing grossly normal bilaterally General nose exam: Normal external nose present Eyes General: appearance normal, both eyes and all related structures Conjunctivae: conjunctivae normal Neck Neck: Yes full ROM and Yes no lymphadenopathy Resp Effort & Inspection: normal respiratory effort Auscultation: clear to auscultation bilaterally, no crackles, no rales, no rhonchi and no wheezes Cardio Rate: regular rate Rhythm: regular rhythm Skin General skin exam: no rashes or lesions noted Neuro General: patient oriented x3 Gait exam (Neuro): Normal gait present Extrem General: Yes normal to inspection, Yes full ROM and No edema Psych Affect: normal affect Attitude: cooperative Insight: Good insight present (Psych) Judgement: Good judgement present (Psych) Coding Level of Care Code Est Pt Level 3 (69348) Diagnoses Generalized anxiety disorder F41.1 Essential hypertension I10 Hypertension type: essential hypertension Hypercholesteremia E78.00 Dysphagia, oropharyngeal R13.12 Parkinson disease G20.A1 Assessment & Plan Assessment & Plan (1) Generalized anxiety disorder: Comment: Dr. Morales q 4 months, therapist once a week Code(s): F41.1 - Generalized anxiety disorder Category: Medical Plan: Continue to follow with psychiatry in his currently on a multitude of medications to treat anxiety and depression. (2) Hypertension: Code(s): I10 - Essential (primary) hypertension Category: Medical Qualifiers: Hypertension type: essential hypertension Qualified Code(s): I10 - Essential (primary) hypertension Plan: Continue on current blood pressure medication. Avoid salt intake and encourage healthy diet and regular exercise. (3) Hypercholesteremia: Code(s): E78.00 - Pure hypercholesterolemia, unspecified Category: Medical Plan: Avoid foods that are high in cholesterol such as red meat, fried foods, eggs and baked goods. Triglyceride goal of less than 150 and LDL goal of less than 130. Ordered for updated blood work (4) Dysphagia, oropharyngeal: Code(s): R13.12 - Dysphagia, oropharyngeal phase Category: Medical Plan: Patient complaining of difficulty swallowing large food boluses. Plan to obtain barium swallow for further evaluation. In the meantime make sure to cut food into small bites and thoroughly to the food. Referral was also placed to GI at patient request (5) Parkinson disease: Code(s): G20.A1 - Parkinson's disease without dyskinesia, without mention of fluctuations Category: Medical Plan: Recent diagnosis of Parkinson's with her neurologist. Plan to obtain these notes as well as an updated medication list from her current assisted living. Continue to follow up with Neurology Plan The management plan includes continuing the current medication regimen for Parkinson's disease, with close monitoring for any side effects or changes in symptoms. A barium swallow test is planned to evaluate the patient's dysphagia, particularly with solid foods. Blood work has been ordered to monitor kidney, liver, electrolytes, cholesterol, thyroid, and vitamin levels, with a specific focus on screening for diabetes due to dietary changes. The patient will continue to follow up with her psychiatrist and neurologist to ensure comprehensive management of her conditions. This note was constructed using voice recognition software. While every effort has been made to ensure accuracy and repeater chief, still areas may have been included sometimes these areas may affect the content or meeting of the given symptoms. Total time spent caring for the patient today was 20 minutes. This includes time spent before the visit reviewing the chart, time spent during the visit, and time spent after the visit and documentation. Patient was informed and verbally consented to the use of an ambient scribe for clinic note documentation during this visit. Orders: Orders TSH reflex Free T4 Today E03.9 - Hypothyroidism, unspecified, Z00.00 - Encounter for general adult medical examination without abnormal findings Vitamin B12 and Folate Today I10 - Essential (primary) hypertension, Z13.21 - Encounter for screening for nutritional disorder Lipid Panel Today E78.00 - Pure hypercholesterolemia, unspecified Hemoglobin A1c Today Z13.1 - Encounter for screening for diabetes mellitus FL barium swallow Today R13.12 - Dysphagia, oropharyngeal phase Free T4 (Free Thyroxine) Today E03.9 - Hypothyroidism, unspecified, Z00.00 - Encounter for general adult medical examination without abnormal findings Vitamin D 25-OH Total Today I10 - Essential (primary) hypertension, Z00.00 - Encounter for general adult medical examination without abnormal findings Complete Blood Count Auto Diff Today I10 - Essential (primary) hypertension, Z00.00 - Encounter for general adult medical examination without abnormal findings Comprehensive Met. Panel Today I10 - Essential (primary) hypertension, Z00.00 - Encounter for general adult medical examination without abnormal findings Referrals Gastroenterology Referral R13.12 - Dysphagia, oropharyngeal phase Medications: New walker As directed 1 ea 0RF G20.A1 - Parkinson's disease without dyskinesia, without mention of fluctuations, M81.0 - Age-related osteoporosis without current pathological fracture, Z91.81 - History of falling
== END 2025-06-03 13:57 | disposition home or self-care (01) ==
LOC: HO.HMCH 12:59
PROVIDERS: PCP Internal Medicine
DX: I10 Essential (primary) hypertension (principal); F41.1 Generalized anxiety disorder; G20.A1 Parkinson's disease without dyskinesia, without mention of fluctuations; E78.00 Pure hypercholesterolemia, unspecified; R13.12 Dysphagia, oropharyngeal phase

== ENCOUNTER → 2025-06-03 12:58 | Outpatient (BNVA) | payer OTHER, SELFPAY | PROVIDERS: PCP Internal Medicine | DX: I10 Essential (primary) hypertension (principal); E03.9 Hypothyroidism, unspecified; E78.00 Pure hypercholesterolemia, unspecified; F41.1 Generalized anxiety disorder; K21.9 Gastro-esophageal reflux disease without esophagitis; R13.12 Dysphagia, oropharyngeal phase; G20.A1 Parkinson's disease without dyskinesia, without mention of fluctuations; M81.0 Age-related osteoporosis without current pathological fracture; Z91.81 History of falling | CPT/HCPCS: 96127; 99212 ==

== ENCOUNTER 2025-07-06 08:45 | Outpatient (REF) | payer OTHER, SELFPAY ==
--- OUTSIDE RECORDS SUMMARY | 2025-04-30 07:30 | XMS_ITS | Continuity of Care Document ---
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 [address] [place], [place], [id number], [place]. tel:[phone] Family History Family Member Type Diagnosis Age At Onset No Information Payers Payer name Insurance type Covered democrat ID Authoriza tion(s) No Information Social History Type Description Quantity Date Captured Comments Sex Female Smoking Status No Information Chief Complaint And Reason For Visit No Information History Of Present Illness Encounter Date Complaint History Of Prese nt Illness No Information Instructions Date Instruction Additional Infor mation No Information Assessments Type Assessment Date No Information
[2025-07-06 10:43] LABS: MANUAL DIFF FLAG NO
[2025-07-06 10:45] LABS: Hematocrit 39.4 % (37.0-47.0); Hemoglobin 13.3 g/dl (12.0-16.0); Imm Gran Abs Auto 0.03 X10*3/uL (0.00-0.03); Imm Gran Pct Auto 0.4 % (0.0-0.4); Lymphocytes Absolute Auto 2.2 X10*3/uL (1.2-4.9); Mean Corpuscular HGB Conc 33.8 g/dl (31.0-35.0); Mean Corpuscular Hemoglobin 28.1 pg (27.0-33.0); Mean Corpuscular Volume 83.1 fL (80.0-98.0); NRBC Abs Auto 0.000 X10*3/uL (0.0-0.012); NRBC Pct Auto 0.0 /100WBC (0.0-0.2); Platelet Count 232 X10*3/uL (160-400); Red Blood Count 4.74 X10*6/uL (4.20-5.50); White Blood Count 7.8 X10*3/uL (4.8-10.8)
[2025-07-06 10:57] LABS: Hemoglobin A1C 118.8823 umol/L; Total Hemoglobin (HGBA1C) 3553.9476 umol/L
[2025-07-06 11:05] LABS: Alanine Aminotransferase 14 U/L (0-31); Albumin Level 4.1 g/dL (3.5-5.0); Alkaline Phosphatase 121 U/L (39-117); Anion Gap 10 (12-20); Aspartate Amino Transferase 28 U/L (5-31); Blood Urea Nitrogen 14 mg/dL (9-16); Calcium 9.2 mg/dL (8.4-10.2); Carbon Dioxide 25 mmol/L (22-29); Chloride 110 mmol/L (96-108); Cholesterol 260 mg/dL (<200); Estimated Glomerular Filt Rate > 60; HDL Cholesterol 50 mg/dL (>40); Potassium 4.1 mmol/L (3.3-5.1); Sodium 141 mmol/L (135-145); Total Protein 8.1 g/dL (6.5-8.0); Triglycerides 195 mg/dL (<150)
[2025-07-06 11:28] LABS: Free T4 (Free Thyroxine) 1.07 ng/dL (0.71-1.85)
[2025-07-06 11:35] LABS: Folate 11.1 ng/mL (> or = 4.0); Vitamin B12 398 pg/mL (200-900)
== END 2025-07-06 08:46 | disposition home or self-care (01) ==
LOC: HO.10HDL 08:45
DX: Z00.00 Encounter for general adult medical examination without abnormal findings (principal); Z13.21 Encounter for screening for nutritional disorder; Z13.1 Encounter for screening for diabetes mellitus; E78.00 Pure hypercholesterolemia, unspecified; E03.9 Hypothyroidism, unspecified; I10 Essential (primary) hypertension
CPT/HCPCS: 36415; 80053; 80061; 82306; 82607; 82746; 83036; 84439; 84443; 85025

== ENCOUNTER 2025-07-08 09:50 | Outpatient (AMB) | payer OTHER, SELFPAY ==
--- OUTSIDE RECORDS SUMMARY | 2025-04-30 07:30 | XMS_ITS | Continuity of Care Document ---
Author Organization [facility] Address [address] [address] Phone Care Team Providers Care Rn Palliative Name Role Phone Eric WRAY, Aqib Unavailable Unavailable Advance Directives Directive Yes / No Effective Date File Name No Information Encounters Encounter Description Practice Location Reason(s) For Visit Diagnoses Date Provider [facility], [address] [address], [place], [place], [id number], [place] tel:[phone] [address] [place] [address] No Information 2024 Eric Aqib. [address] [place], [place], [id number], [place]. tel:[phone] Family History Family Member Type Diagnosis Age [...]
--- NOTE | 2025-07-08 09:59 | A.OFFVIS_ITS ---
Vital Signs 07/08/25 10:08 Height 4 ft 10.98 in Weight 173 lb 8.061 oz BMI 35.1 BP 114/62 Blood Pressure Location Lt brachial Position Sitting Pulse 68 Pulse Source Pulse Oximeter Pulse Oximetry (%) 96 Oxygen Delivery Method Room Air Intake Visit Reasons: Osteoporosis Intake Note: Patient present today for Osteoporosis follow up. Border Guard Required: No Accompanied by: Daughter Allergies No Known Allergies Allergy (Mild, Verified 07/08/25 10:09) UNKNWON HPI Comments Details: The patient is a 69-year-old female presenting with a diagnosis of osteoporosis originally identified in January 2020 through bone density testing. He has not received any osteoporosis-specific treatment and reports no personal history of fractures. Hesitant to engage in exercise, the patient relies on dietary sources for calcium and previously had deficient vitamin D levels. Discussion with her daughter indicates a regular intake of calcium-rich foods, but no supplementation was noted. The patient experienced a minor fall last year without fractures and reports intermittent episodes of choking when eating, First diagnosed in last mo . Not Received treatment in the past No history of pathologic fracture or ONJ. Has several servings of dietary calcium per day in the form of yogurt , cheese . Not Takes Calcium supplement . Not Takes Vitamin D daily. The patient regularly consumes a diet rich in calcium, including yogurt, milk, broccoli, cheddar cheese, roast, and yogurt. These are consumed daily, and his diet is considered the healthiest it has ever been, as per his son's report. He does not smoke or consume alcohol heavily. Previously, he lived independently but is now under his daughter's care, further supporting a structured dietary regimen. Denies ever using PPI, anticoagulant, antiepileptic or glucocorticoid medication. Not Does weight bearing exercise Fracture history: No Height loss: [employer] history: Menarche at 14- Menopause at age 52 nl menses Denies history of Kidney stones: Denies family history of Osteoporosis or hip fracture. UTD on dental cleanings and sees dentist every 6 months. No planned upcoming dental work or extractions. Ex -Tabaaco use or heay EToH use DXA dated 01/26/25 : FINDINGS: The bone mineral density of the lumbar spine is 0.919 with a T-score of -2.2, and a Z-score of -0.4. This represents a BMD change of -11.8% compared to the prior exam. This is statistically significant. The bone mineral density of the left total hip is 0.800 with a T-score of -1.7, and a Z-score of -0.3. This represents BMD change of -1.2% compared to the prior exam. This is not statistically significant. The bone mineral density of the left femoral neck is 0.662 with a T-score of -2.7, and a Z-score of -1.1. This represents BMD change of -4.9% compared to the prior exam. FRACTURE RISK: The FRAX index suggests a ten year probability of major osteoporotic fracture of 14.1%, and of hip fracture 3.5%. MM/XR DEXA axial skeleton IMPRESSION: Based on bone mineral density, and according to World Health Organization (WHO) criteria, the diagnosis is consistent with osteoporosis. Labs: Patient did not do labs for secondary workup [facility] Medical History Osteoporosis (~2006) Personal history of nicotine dependence Elevated liver enzymes Dysphagia, oropharyngeal Humerus fracture Cholelithiases Urge incontinence Hypercholesteremia Hypothyroid Anxiety and depression Hypertension Surgical History History of shoulder surgery History of colonoscopy History of esophagogastroduodenoscopy (EGD) History of right salpingo-oophorectomy History of appendectomy History of tonsillectomy Family History Father No problems noted. Mother Hypertension Cancer Social History Household Members: None Housing: Apartment Do you presently have visiting nurse or other home services: Yes Alcohol intake: never Patient Tobacco Use Status: Current everyday Tobacco user Tobacco use type: Cigarette Cigarette Packs Per Day: 1 Cigarettes Per Day: 5 e-Cigarette/Vaping Use: Never Used Second Hand Smoke Exposure: Yes service: No Current occupational status: disabled Cognitive needs: Yes Hearing needs: No Vision needs: Yes Physical Exam Vital Signs: BMI result Body Mass Index 35.1 Assessment & Plan Assessment & Plan (1) Osteoporosis: Onset Date: ~2006 Comment: (Bone Dexa Femoral T-score: -2.5 on 09/04/07; -2.7 on 01/26/25) Code(s): M81.0 - Age-related osteoporosis without current pathological fracture Category: Medical Plan: This 69-year-old female with a history of osteoporosis with partial secondary workup revealing slightly low 25- vitamin-D levels Plan neeeds to complete the secondary workup by checking a phosphorus level, SPEP, UPEP urine immunofixation, repeat 25 hydroxy vitamin-D, 24 hour urine for calcium and creatinine in 3 mos . We will ensure 1200 mg of calcium an attempt to replete vitamin-D. Once secondary workup is complete and vitamin-D levels are replete, could consider pharmacotherapy with an anti resorptive agent like oral or intravenous bisphosphonate or Prolia. Coding Level of Care Code Est Pt Level 3 (37559) Diagnoses Osteoporosis M81.0
[2025-07-08 10:08] VITALS: BP 114/62; PULSE 68; O2SAT 96; BMI 35.1
== END 2025-07-08 16:39 | disposition home or self-care (01) ==
LOC: HO.ENCR 09:51
PROVIDERS: PCP Internal Medicine; Visit Provider Internal Medicine Endocrinology, Diabetes & Metabolism
DX: M81.0 Age-related osteoporosis without current pathological fracture (principal)
CPT/HCPCS: 99213

== ENCOUNTER 2025-07-08 10:35 | Outpatient (REF) | payer OTHER, SELFPAY ==
[2025-07-09 22:24] LABS: Prot Elec - Albumin 3.9 g/dL (3.8-4.8); Prot Elec - Alpha1 0.3 g/dL (0.2-0.3); Prot Elec - Alpha2 0.9 g/dL (0.5-0.9); Prot Elec - Beta 1 0.4 g/dL (0.4-0.6); Prot Elec - Beta 2 0.5 g/dL (0.2-0.5); Prot Elec - Gamma 1.6 g/dL (0.8-1.7); Prot Elec - Total Protein 7.6 g/dL (6.1-8.1)
== END 2025-07-08 10:36 | disposition home or self-care (01) ==
LOC: HO.10HDL 10:35
PROVIDERS: Visit Provider Internal Medicine Endocrinology, Diabetes & Metabolism
DX: M81.0 Age-related osteoporosis without current pathological fracture (principal)
CPT/HCPCS: 36415; 82306; 84100; 84165; 99212

== ENCOUNTER 2025-07-12 11:16 | Outpatient (REF) | payer OTHER, SELFPAY ==
[2025-07-12 13:24] LABS: Creatinine, mg/dL 92.04
[2025-07-12 13:44] LABS: Total Volume 24 Hour Urine 200 mL
[2025-07-14 16:37] LABS: Calcium/Creatinine Ratio 99 mg/g creat (30-275); Creatinine 24Hr Urine 0.19 g/24 h (0.50-2.15)
== END 2025-07-12 11:17 | disposition home or self-care (01) ==
LOC: HO.10HDLNP 11:16
PROVIDERS: Visit Provider Internal Medicine Endocrinology, Diabetes & Metabolism
DX: M81.0 Age-related osteoporosis without current pathological fracture (principal)
CPT/HCPCS: 82340; 82570